=== PATIENT | male | born 1940 | race Caucasian/White ===

== ENCOUNTER 2018-05-09 14:09 | Emergency (ER) | payer MEDICARE ==
[~2018-05-09] VITALS: Ht 180.3 cm; Wt 68.0 kg
--- OUTSIDE RECORDS SUMMARY | 2018-05-09 14:18 | XMS REPORT | Continuity of Care Document ---
Author Author [facility] Address Unknown Phone Unavailable Allergies Active Description Code Type Severity Reaction Onset Reported/Identified Relationship to Patient Clinical Status Yes ERYTHROMYCIN ETHYLSUCCINATE 74323 DRUG INGREDI N/A Hives 12/02/2017 Yes SULFAMETHOXAZOLE-TRIMETHOPRIM 20412 DRUG N/A Hives~Flushed 12/02/2017 Medications There is no data. Problems Date Dx Coded Attending Type Code Diagnosis Diagnosed By 02/01/2018 JUN REYES N20.0 Calculus of kidney 02/20/2018 JANIYA WHEELER N18.6 End stage renal disease 02/20/2018 JANIYA WHEELER Z99.2 Dependence on renal dialysis 02/20/2018 VENKATA WHEELERMED N18.6 End stage renal disease 02/20/2018 ABOUL MAGGokul, VENKATAMED Z99.2 Dependence on renal dialysis 02/20/2018 VENKATA WHEELERMED N18.6 End stage renal disease 02/20/2018 JANIYA WHEELER Z99.2 Dependence on renal dialysis Procedures Code Description Performed By Performed On WOU241 NURSING COMMUNICATION 01/26/2018 [id number] BASIC METABOLIC PANEL 02/01/2018 RJV501 NOTIFY PHYSICIAN 02/01/2018 MES683 HEIGHT AND WEIGHT 02/01/2018 VHS680 VITAL SIGNS 02/01/[address] SEQUENTIAL COMPRESSION DEVICE 02/01/2018 XLW318 MAINTAIN SEQUENTIAL COMPRESSION DEVICE 02/01/2018 LEJ111 APPLY WARMING BLANKET 02/01/2018 [id number] BASIC METABOLIC PANEL 02/01/2018 [id number] STONE ANALYSIS URINARY 02/01/2018 IMY060 NURSING COMMUNICATION 02/01/2018 BJH934 MEASURE BLOOD PRESSURE 02/01/2018 UXN924 VITAL SIGNS 02/01/2018 SBE034 CONTINUOUS PULSE OXIMETRY 02/01/2018 RJN803 NOTIFY PHYSICIAN 02/01/2018 MUJ149 NURSING COMMUNICATION 02/01/2018 EDN207 NURSING OXYGEN ORDERS/ INSTRUCTIONS 02/01/2018 BIV107 BLADDER SCAN 02/01/2018 PCU698 STRAIGHT CATH 02/01/2018 ZBG059 APPLY WARMING BLANKET 02/01/2018 IDK006 GLUCOSE POC 02/01/2018 DFN530 NOTIFY PHYSICIAN 02/01/2018 KXI876 WEIGHT RESTRICTIONS 02/01/2018 MHF857 PATIENT MAY SHOWER 02/01/2018 NUR6 ACTIVITY ORDER 02/01/2018 RVA871 DISCHARGE FOLLOW UP 02/01/2018 HFK040 WOUND CARE INSTRUCTIONS FOR NURSING (SPECIFY) 02/01/2018 ADT8 DISCHARGE PATIENT 02/01/2018 DIET24 DIET 02/01/2018 [id number] ADVANCE DIET TOLERATED NURSING: PLACE NEW DIET ORDER WHEN PATIENT IS READY TO ADVANCE DIET 02/01/2018 QHY433 ACTIVITY TOLERATED 02/01/2018 TFK358 VITAL SIGNS 02/01/2018 [id number] IR TUNNELED DIALYSIS CATHETER REMOVAL 02/20/2018 SEI282 ACTIVITY TOLERATED 02/20/2018 YGG083 NURSING COMMUNICATION 02/20/2018 LQR045 VITAL SIGNS 02/20/2018 ANV225 SHOWER 02/20/2018 ZUC515 NURSING COMMUNICATION 02/20/2018 ZNF490 DISCHARGE INSTRUCTIONS 02/20/2018 NYC677 NOTIFY SERVICE 02/20/2018 XKN111 DISCHARGE FOLLOW UP 02/20/2018 ADT8 DISCHARGE PATIENT 02/20/2018 IVT10 DISCONTINUE IV 02/20/2018 Results Test Result Range BASIC METABOLIC PANEL - 02/01/18 08:30 Blood Urea Nitrogen 22 7-26 Chloride 106 96-112 Carbon Dioxide 25 20-32 Creatinine 0.9 0.6-1.3 Glucose 105 70-100 Potassium 4.3 3.5-5.3 Sodium 138 133-147 Calcium 9.2 8.4-10.5 Anion Gap 7 TX 5-17 GFR MALE AA 99 TX 60-200 GFR MALE NON-AA 82 TX 60-200 STONE ANALYSIS URINARY - 02/01/18 10:58 Disclaimer: Comment NRG Stone Ca oxalate monohydr 85 NRG Stone Calcium phosphate 05 NRG Stone Color Brown NRG Stone Comment Comment NRG Stone Composition Comment NRG Stone Nidus No Nidus visualized NRG Stone Comment Comment NRG Stone Size Comment NRG Stone Uric acid 10 NRG Stone Weight 121.5 NRG Encounters ACCT No. Visit Date/Time Discharge Status Pt. Type Provider Facility Loc./Unit Complaint [id number] 02/20/2018 10:46:12 02/20/2018 23:59:00 DIS Outpatient JANIYA WHEELER [facility] IR End stage renal disease [id number] 02/01/2018 07:48:00 02/01/2018 14:03:00 DIS Outpatient JUN REYES [facility] MAIN OR LEFT KIDNEY STONE N20.0 [id number] 02/01/2018 10:10:50 Document Registration
--- NOTE | 2018-05-09 14:51 | ED General ---
General Stated Complaint: HIGH BLOOD PRESSURE Source of Information: Patient, Family ( and daughter) Exam Limitations: No Limitations History of Present Illness Date Seen by Provider: May 09, 2018 Time Seen by Provider: 14:36 Initial Comments The patient presents to ER by private conveyance with family and chief complaint that he woke up this morning feeling a little flushing in his face so he decided to check his blood pressure. It was about 200/110. He says usually his blood pressure runs around 115/80. He does take propranolol fastidiously for blood pressure management. He took it this morning and they continue to document his blood pressure throughout the morning and it stayed elevated. He's never had blood pressure this high before. He denies any chest pain. He said his face was flushed and he felt a little bit off like he was just woke up all day. He denies headache or blurry vision. 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 He denies being short of breath or having a cough. For a few months now he's been having loose stools and mild fecal incontinence. He also has some peripheral neuropathy and difficulty with walking tightness in his bilateral quadriceps. In the last 3 or 4 months he also had a large kidney stone that he failed to pass and ended up on dialysis for a few weeks. He has since then been released from [facility] nephrology and is not on dialysis. He denies dysuria or hematuria today. He denies fevers chills nausea vomiting or constipation. He went to his primary care doctor a few weeks ago because he had symptoms of bronchitis as well as a bladder infection and was treated with antibiotics which she just finished one week ago as well as oral steroids one week ago. He was also given 3 days of IM antibiotics. He says during the time he was taking the steroids his blood pressure was never elevated. He denies using any since NSAIDs recently. He and his family deny any slurred speech, facial droop or acute weakness. He has difficulty describing what he was feeling in his head besides a flushing sensation. He denies vertigo, imbalance, double vision, headache or pain, ears feeling full or decreased hearing. The patient states that he had an elevated white count as well as white cells in his urine and that's when his primary care doctor put him on antibiotics couple weeks ago. Allergies and Home Medications Allergies Coded Allergies: sulfamethoxazole (Verified Allergy, Unknown, 05/09/18) trimethoprim (Verified Allergy, Unknown, 05/09/18) Uncoded Allergies: EES-400 (Allergy, Unknown, 05/09/18) Patient Home Medication List Home Medication List Reviewed: Yes Review of Systems Review of Systems Constitutional: No chills, No fever EENTM: No ear discharge, No hearing loss, No ear pain Respiratory: No cough, No short of breath Cardiovascular: No chest pain, No edema; Hx of Intervention; No palpitations Gastrointestinal: No abdominal pain, No constipation; diarrhea (occasional loose stools); No nausea Genitourinary: No discharge, No dysuria Musculoskeletal: No back pain, No joint pain Psychiatric/Neurological: Denies Headache, Denies Numbness; Paresthesia (head) Physical Exam Vital Signs Vital Signs - First Documented 05/09/18 14:24 Temp 96.4 Pulse 80 Resp 16 B/P (MAP) 210/106 (140) Pulse Ox 96 O2 Delivery Room Air Capillary Refill : Height, Weight, BMI Height: '" Weight: lbs. oz. kg; BMI Method: General Appearance: No Apparent Distress, WD/WN Eyes: Bilateral Eye Normal Inspection, Bilateral Eye PERRL, Bilateral Eye EOMI HEENT: TMs Normal, Normal ENT Inspection, Pharynx Normal, Other (right pupil is 5 mm, fixed and nonreactive to light. Left pupil is 2-3 mm, reactive to light and accommodation. Extraocular muscle intact.) Neck: Normal Inspection, Non Tender Respiratory: Chest Non Tender, Lungs Clear, Normal Breath Sounds, No Accessory Muscle Use, No Respiratory Distress Cardiovascular: Regular Rate, Rhythm, No Edema, No Murmur, Normal Peripheral Pulses Gastrointestinal: Normal Bowel Sounds, Non Tender, Soft Extremity: Normal Capillary Refill, Normal Inspection, Non Tender, No Calf Tenderness, Other (decreased range of motion bilateral lower extremities secondary to tightness and pain in his quadriceps) Neurologic/Psychiatric: Alert, Oriented x3, No Motor/Sensory Deficits, Normal Mood/Affect, dish carrier II-XII Norm as Tested Skin: Normal Color, Warm/Dry Progress/Results/Core Measures Suspected Sepsis SIRS Temperature: Pulse: Respiratory Rate: Laboratory Tests 05/09/18 14:40: White Blood Count 17.8H Blood Pressure / Mean: Laboratory Tests 05/09/18 14:40: Creatinine 0.96, Platelet Count 449H, Total Bilirubin 0.7 Results/Orders Lab Results Laboratory Tests Test 05/09/18 14:40 05/09/18 15:20 Range/Units White Blood Count 17.8 H 4.3-11.0 10^3/uL Red Blood Count 5.12 4.35-5.85 10^6/uL Hemoglobin 16.1 13.3-17.7 G/DL Hematocrit 49 40-54 % Mean Corpuscular Volume 96 80-99 FL Mean Corpuscular Hemoglobin 31 25-34 PG Mean Corpuscular Hemoglobin Concent 33 32-36 G/DL Red Cell Distribution Width 16.0 H 10.0-14.5 % Platelet Count 449 H 130-400 10^3/uL Mean Platelet Volume 9.0 7.4-10.4 FL Neutrophils (%) (Auto) 85 H 42-75 % Lymphocytes (%) (Auto) 9 L 12-44 % Monocytes (%) (Auto) 5 0-12 % Eosinophils (%) (Auto) 0 0-10 % Basophils (%) (Auto) 0 0-10 % Neutrophils # (Auto) 15.1 H 1.8-7.8 X 10^3 Lymphocytes # (Auto) 1.7 1.0-4.0 X 10^3 Monocytes # (Auto) 0.9 0.0-1.0 X 10^3 Eosinophils # (Auto) 0.0 0.0-0.3 10^3/uL Basophils # (Auto) 0.0 0.0-0.1 10^3/uL Neutrophils % (Manual) 75 % Lymphocytes % (Manual) 13 % Monocytes % (Manual) 4 % Eosinophils % (Manual) 0 % Basophils % (Manual) 0 % Metamyelocytes % 1 % Band Neutrophils 7 % Blood Morphology Comment NORMAL Sodium Level 140 135-145 MMOL/L Potassium Level 4.5 3.6-5.0 MMOL/L Chloride Level 98 98-107 MMOL/L Carbon Dioxide Level 26 21-32 MMOL/L Anion Gap 16 H 5-14 MMOL/L Blood Urea Nitrogen 16 7-18 MG/DL Creatinine 0.96 0.60-1.30 MG/DL Estimat Glomerular Filtration Rate > 60 BUN/Creatinine Ratio 17 Glucose Level 131 H 70-105 MG/DL Calcium Level 9.3 8.5-10.1 MG/DL Corrected Calcium 8.5-10.1 MG/DL Magnesium Level 2.1 1.8-2.4 MG/DL Total Bilirubin 0.7 0.1-1.0 MG/DL Aspartate Amino Transf (AST/SGOT) 24 5-34 U/L Alanine Aminotransferase (ALT/SGPT) 15 0-55 U/L Alkaline Phosphatase 102 40-136 U/L Troponin T 17 H <=15 NG/L Total Protein 8.3 H 6.4-8.2 GM/DL Albumin 4.6 H 3.2-4.5 GM/DL Urine Color YELLOW Urine Clarity CLEAR Urine pH 6.5 5-9 Urine Specific [place] 1.015 L 1.016-1.022 Urine Protein NEGATIVE NEGATIVE Urine Glucose (UA) NEGATIVE NEGATIVE Urine Ketones NEGATIVE NEGATIVE Urine Nitrite NEGATIVE NEGATIVE Urine Bilirubin NEGATIVE NEGATIVE Urine Urobilinogen 0.2 NORMAL MG/DL Urine Leukocyte Esterase 1+ H NEGATIVE Urine RBC (Auto) TRACE H NEGATIVE Urine RBC 0-2 /HPF Urine WBC 25-50 H /HPF Urine Crystals NONE /LPF Urine Bacteria NONE /HPF Urine Casts NONE /LPF Urine Mucus NEGATIVE /LPF Urine Culture Indicated YES My Orders Orders - EDUARDOIVAN Cbc With Automated Diff (05/09/18 14:42) Comprehensive Metabolic Panel (05/09/18 14:42) Magnesium (05/09/18 14:42) Ua Culture If Indicated (05/09/18 14:42) Troponin T (05/09/18 14:42) Chest 1 View Ap/Pa Only (05/09/18 14:42) Saline Lock/Iv-Start (05/09/18 14:42) Continuous Ekg Monitoring (05/09/18 14:44) Ekg Tracing (05/09/18 14:44) Manual Differential (05/09/18 14:40) Hs C Reactive Protein (05/09/18 14:40) Creatine Kinase (05/09/18 14:40) Urine Culture (05/09/18 15:20) Piperacillin/Tazobactam (Bulk) (Zosyn In (05/09/18 16:30) Piperacillin Sodium/Tazobactam (Zosyn Vi (05/09/18 16:30) Ns (Ivpb) (Sodium Chloride 0.9% Ivpb Bag (05/09/18 16:30) Medications Given in ED Current Medications Medications Dose Ordered Sig/Esha Route Start Time Stop Time Status Last Admin Dose Admin Piperacillin Sod/ Tazobactam Sod 4.5 gm/Sodium Chloride 120 ml @ 240 mls/hr ONCE ONCE IV 05/09/18 16:30 05/09/18 16:59 DC 05/09/18 16:44 240 MLS/HR Vital Signs/I&O 05/09/18 05/09/18 14:24 18:01 Temp 96.4 98.2 Pulse 80 68 Resp 16 14 B/P (MAP) 210/106 (140) 144/78 (100) Pulse Ox 96 97 O2 Delivery Room Air Room Air Capillary Refill : Progress Note #1: Time: 14:53 Progress Note Hypertension with flushing of the face. Steroids and antibiotics were a week ago. We'll check a CPK looking for evidence of maybe a statin related rhabdomyolysis causing his muscular weakness and pain however he's had this for several months and his primary care doctor has already started a workup on this. We'll check a urinalysis and his history of kidney stones and dialysis. We 'll check CBC and CMP looking for evidence of infection, inflammation with a CRP or kidney failure. We will observe his blood pressure for a while to see what it does without checking it constantly. When he arrived it was about 200/ 110. As of the time of this note it is down to 175/88. Rest of his vital signs are aseptic. His recent history of having to have dialysis is concerning for a source of his high blood pressure. Neurologically he is intact at baseline so this seems to be asymptomatic hypertension. Finger to Nose is intact bilaterally. No evidence of a stroke by history or clinical examination. Progress Note #2: Time: 16:16 Progress Note The patient's blood pressure is 153/84 and came down spontaneously at rest. He does have white cells in his urine and an elevated white count of 17,000. Since he received IM probably Rocephin outpatient for 3 days plus oral antibiotics and discontinued them about a week ago were going to choose to use Zosyn and encourage at least an overnight stay. His propranolol would make a elevated heart rate be masked otherwise he would possibly qualify for sepsis. ECG Initial ECG Impression Date: May 09, 2018 Initial ECG Impression Time: 14:28 Initial ECG Rate: 84 Initial ECG Rhythm: Normal Sinus Initial ECG Intervals: Normal Initial ECG Impression: Normal, Nonspecific Changes Initial ECG Comparisson: No Previous ECG Available Comment Noted abnormal EKG. No significant ST elevation or depression. Diagnostic Imaging Diagonstic Imaging: Xray Plain Films/CT/US/NM/MRI: chest Comments [facility] [place] [place] NAME: NOEMI [facility] REC#: [id number] PT STATUS: REG ER : 1940 PHYSICIAN: IVAN CLARK MD ADMIT DATE: 05/09/18/ER FS Draft Date of Exam:05/09/18 CHEST 1 VIEW AP/PA ONLY INDICATION: High blood pressure. COMPARISON: None available. FINDINGS: Small left pleural effusion. Probable airspace opacity in the left lung base. Posterior lower lobes are poorly evaluated by portable radiography. No pleural effusion or pneumothorax. Heart is normal in size and status post CABG. IMPRESSION: 1. Small left pleural effusion is unknown etiology. 2. Potential left basilar opacities could relate to relaxation atelectasis. Underlying pneumonia could be present as well in the appropriate setting. Dictated on workstation # [id number] Dict: 05/09/18 1533 Trans: 05/09/18 1538 [facility] [id number] Interpreted by: JUN NAIR MD Electronically signed by: Reviewed: Reviewed by Me Departure Impression Primary Impression: UTI (urinary tract infection) Qualified Codes: N30.00 - Acute cystitis without hematuria Additional Impressions: Sepsis Qualified Codes: A41.9 - Sepsis, unspecified organism Elevated troponin level Hypertension Qualified Codes: I10 - Essential (primary) hypertension Disposition: XFER SHT-TRM HOSP Condition: Stable Transfer Time Spoke to Accepting Phy: 17:00 Transfer Progress Notes Discussed case with Dr. Marquez at [facility]. He agrees to accept the patient. Transfer Time: 18:00 Transfer Facility: [facility] Method of Transfer: EMS Departure-Patient Inst. Referrals: SILVESTRE HANSEN DO (PCP/Family) Primary Care Physician IVAN CLARK May 09, 2018 14:51
[2018-05-09 14:58] LABS: HEMATOCRIT 49 % (40-54); HEMOGLOBIN 16.1 G/DL (13.3-17.7); MEAN CORPUSCULAR HEMOGLOBIN 31 PG (25-34); MEAN CORPUSCULAR HGB CONC 33 G/DL (32-36); MEAN CORPUSCULAR VOLUME 96 FL (80-99); PLATELET COUNT 449 10^3/uL (130-400); WHITE BLOOD COUNT 17.8 10^3/uL (4.3-11.0)
[2018-05-09 14:59] LABS: BASOPHILS % (AUTO) 0 % (0-10); EOSINOPHILS % (AUTO) 0 % (0-10); LYMPHOCYTES # (AUTO) 1.7 X 10^3 (1.0-4.0); LYMPHOCYTES % (AUTO) 9 % (12-44); MONOCYTES # (AUTO) 0.9 X 10^3 (0.0-1.0); MONOCYTES % (AUTO) 5 % (0-12); NEUTROPHILS # (AUTO) 15.1 X 10^3 (1.8-7.8); NEUTROPHILS % (AUTO) 85 % (42-75)
[2018-05-09 15:19] LABS: ALKALINE PHOSPHATASE 102 U/L (40-136); BILIRUBIN,TOTAL 0.7 MG/DL (0.1-1.0); BUN/CREATININE RATIO 17; CALCIUM 9.3 MG/DL (8.5-10.1); CARBON DIOXIDE 26 MMOL/L (21-32); CHLORIDE 98 MMOL/L (98-107); CREATININE SERUM 0.96 MG/DL (0.60-1.30); GFR ESTIMATED > 60; GLUCOSE 131 MG/DL (70-105); MAGNESIUM 2.1 MG/DL (1.8-2.4); POTASSIUM 4.5 MMOL/L (3.6-5.0); SODIUM 140 MMOL/L (135-145)
[2018-05-09 15:20] LABS: ALANINE AMINOTRANSFERASE 15 U/L (0-55); ALBUMIN 4.6 GM/DL (3.2-4.5); TOTAL PROTEIN 8.3 GM/DL (6.4-8.2)
[2018-05-09 15:39] LABS: BAND NEUTROPHILS 7 %; BASOPHILS % (MANUAL) 0 %; EOSINOPHILS % (MANUAL) 0 %; LYMPHOCYTES % (MANUAL) 13 %; METAMYELOCYTES % 1 %; MONOCYTES % (MANUAL) 4 %; NEUTROPHILS % (MANUAL) 75 %; RBC MORPH NORMAL
--- NOTE | 2018-05-09 15:39 | Diagnostic Imaging Report ---
INDICATION: High blood pressure. COMPARISON: None available. FINDINGS: Small left pleural effusion. Probable airspace opacity in the left lung base. Posterior lower lobes are poorly evaluated by portable radiography. No pleural effusion or pneumothorax. Heart is normal in size and status post CABG. IMPRESSION: 1. Small left pleural effusion is unknown etiology. 2. Potential left basilar opacities could relate to relaxation atelectasis. Underlying pneumonia could be present as well in the appropriate setting. Dictated by: Dictated on workstation # [id number]
[2018-05-09 15:40] LABS: BILIRUBIN,URINE NEGATIVE (NEGATIVE); CLARITY,URINE CLEAR; COLOR,URINE YELLOW; GLUCOSE, URINE (UA) NEGATIVE (NEGATIVE); KETONES,URINE NEGATIVE (NEGATIVE); LEUKOCYTE ESTERASE ,URINE 1+ (NEGATIVE); NITRITE,URINE NEGATIVE (NEGATIVE); PH,URINE 6.5 (5-9); PROTEIN,URINE NEGATIVE (NEGATIVE); RBC,URINE 0-2 /HPF; UROBILINOGEN,URINE 0.2 MG/DL (NORMAL); WBC,URINE 25-50 /HPF
[2018-05-09] MEDS ORDERED: CEFD300C3 (15:52)
[2018-05-09] MEDS ORDERED: PRD10T (15:52)
[2018-05-09] MEDS ORDERED: ZOLP5TAB7 (15:52)
[2018-05-09] MEDS ORDERED: LATA2.5D5 (15:52)
[2018-05-09] MEDS ORDERED: TRAZ-189 (15:52)
[2018-05-09] MEDS ORDERED: NS (IVPB) 100 ML ONE (16:30)
[2018-05-09] MEDS ORDERED: PIPERACILLIN/TAZOBACTAM (BULK) 4.5 GM in NS (IVPB) 100 ML IV ONE (16:30)
[2018-05-09] MEDS ORDERED: PIPERACILLIN/TAZO 4.5 GM VIAL (ZOSYN) IV ONE (16:30)
[2018-05-09 18:01] VITALS: BP 144/78
== END 2018-05-09 18:14 | disposition short-term general hospital (02) ==
LOC: ER FS 14:13
DX: N39.0 Urinary tract infection, site not specified (principal); A41.9 Sepsis, unspecified organism; I10 Essential (primary) hypertension; R79.89 Other specified abnormal findings of blood chemistry; Z95.1 Presence of aortocoronary bypass graft; Z88.2 Allergy status to sulfonamides; Z88.8 Allergy status to other drugs, medicaments and biological substances
CPT/HCPCS: 36415; 71045; 80053; 81000; 82550; 83735; 84484; 85007; 85027; 86141; 87077; 87088; 87184; 87186; 93005; 96374

== ENCOUNTER → 2019-01-16 | Outpatient (CLI) | payer MEDICARE ==
[~2019-01-16] MED LIST: CEFD300C3; LATA2.5D5; PRD10T; TRAZ-222; ZOLP5TAB7
== END ==
LOC: FS 17:31
PROVIDERS: ATTEND Emergency Medicine
DX: J18.9 Pneumonia, unspecified organism (principal)

== ENCOUNTER → 2019-01-16 | Outpatient (CLI) | payer MEDICARE ==
--- NOTE | 2019-01-16 18:16 | Diagnostic Imaging Report ---
HISTORY: Cough. TECHNIQUE: Two views of the chest. COMPARISON: 05/09/2018. FINDINGS: There is elevation of the left hemidiaphragm with blunting of the left costophrenic angle which is stable since 05/09/2018. This may be due to chronic scarring. There is no pleural effusion or pneumothorax. There is scarring in the lung apices. Right lung volume is large. Sternotomy wires are noted. There is calcific atherosclerosis. The heart is normal in size. IMPRESSION: 1. Chronic findings in the lungs with no acute pulmonary abnormality seen. Dictated by: Dictated on workstation # [id number]
== END ==
LOC: RAD FS 17:57
PROVIDERS: ATTEND Emergency Medicine
DX: J18.9 Pneumonia, unspecified organism (principal)
CPT/HCPCS: 71046

== ENCOUNTER → 2019-03-02 | Outpatient (CLI) | payer MEDICARE ==
[~2019-03-02] MED LIST changes: -TRAZ-222; +TRZ50T
--- NOTE | 2019-03-02 14:20 | Diagnostic Imaging Report ---
HISTORY: Cough and bronchitis. TECHNIQUE: Two views of the chest. COMPARISON: 01/16/2019 FINDINGS: There is scarring at the left lung base which is unchanged since the prior exam. No new consolidation is seen. Lung volumes are large. There is biapical pleural scarring. The cardiac silhouette is normal in size. Sternotomy wires are noted. IMPRESSION: 1. Chronic findings in the lungs bilaterally with no new consolidation seen. Dictated by: Dictated on workstation # [id number]
== END ==
LOC: RAD FS 12:34
PROVIDERS: ATTEND Nurse Practitioner Family
DX: J20.9 Acute bronchitis, unspecified (principal); Z98.890 Other specified postprocedural states
CPT/HCPCS: 71046

== ENCOUNTER 2019-09-03 08:13 | Inpatient (IN) | payer MEDICARE ==
[2019-09-03] VITALS (27 sets, daily range): BP systolic 96–137; BP diastolic 56–83
[~2019-09-03] VITALS: Ht 180.3 cm; Wt 67.1 kg
--- OUTSIDE RECORDS SUMMARY | 2019-09-03 08:21 | XMS REPORT | Continuity of Care Document ---
Author Organization Unknown Address Unknown Phone Unavailable Allergies Active Description Code Type Severity Reaction Onset Reported/Identified Relationship to Patient Clinical Status Yes ERYTHROMYCIN ETHYLSUCCINATE 28816 DRUG INGREDI N/A Hives 12/02/2017 Yes SULFAMETHOXAZOLE-TRIMETHOPRIM 22050 DRUG N/A Hives~Flushed 12/02/2017 Yes EES-400 EES-400 Unknown N/A 05/09/2018 Yes No Known Drug Allergies [id number] Drug Allergy Unknown N/A 05/09/2018 Yes sulfamethoxazole [id number] Drug Allergy Unknown N/A 05/09/2018 Yes trimethoprim [id number] Drug Allergy Unknown N/A 05/09/2018 Yes SULFA (SULFONAMIDE ANTIBIOTICS) 33 Drug Class N/A N/A 05/10/2018 Medications There is no data. Problems Date Dx Coded Attending Type Code Diagnosis Diagnosed By 02/01/2018 JUN REYES N20. 0 Calculus of kidney 02/20/2018 JANIYA WHEELER N18.6 End stage renal disease 02/20/2018 JANIYA WHEELER Z99.2 Dependence on renal dialysis 02/20/2018 VENKATA WHEELERMED N18.6 End stage renal disease 02/20/2018 VENKATA WHEELERMED Z99.2 Dependence on renal dialysis 02/20/2018 JANIYA WHEELER N18.6 End stage renal disease 02/20/2018 VENKATA WHEELERMED Z99.2 Dependence on renal dialysis 05/09/2018 IVAN CLARK MD Ot A41. 9 SEPSIS, UNSPECIFIED ORGANISM 05/09/2018 IVAN CLARK MD Ot I10 ESSENTIAL (PRIMARY) HYPERTENSION 05/09/2018 IVAN CLARK MD Ot N39. 0 URINARY TRACT INFECTION, SITE NOT SPECIF 05/09/2018 IVAN CLARK MD Ot R03. 0 ELEVATED BLOOD-PRESSURE READING, W/O ANGELES 05/09/2018 IVAN CLARK MD Ot R79. 89 OTHER SPECIFIED ABNORMAL FINDINGS OF BLO 05/09/2018 IVAN CLARK MD Ot Z88. 2 ALLERGY STATUS TO SULFONAMIDES STATUS 05/09/2018 IVAN CLARK MD Ot Z88. 8 ALLERGY STATUS TO OTH DRUG/MEDS/BIOL SUB 05/09/2018 IVAN CLARK MD Ot Z95. 1 PRESENCE OF AORTOCORONARY BYPASS GRAFT 05/10/2018 JACEY RIVERA I10 Essential (primary) hypertension 05/10/2018 JACEY RIVERA I10 Essential (primary) hypertension 05/10/2018 JACEY RIVERA I10 Essential (primary) hypertension 05/12/2018 IVAN CLARK MD Ot A41. 9 SEPSIS, UNSPECIFIED ORGANISM 05/12/2018 IVAN CLARK MD Ot I10 ESSENTIAL (PRIMARY) HYPERTENSION 05/12/2018 IVAN CLARK MD Ot N39. 0 URINARY TRACT INFECTION, SITE NOT SPECIF 05/12/2018 IVAN CLARK MD Ot R03. 0 ELEVATED BLOOD-PRESSURE READING, W/O ANGELES 05/12/2018 IVAN CLARK MD Ot R79. 89 OTHER SPECIFIED ABNORMAL FINDINGS OF BLO 05/12/2018 IVAN CLARK MD Ot Z88. 2 ALLERGY STATUS TO SULFONAMIDES STATUS 05/12/2018 IVAN CLARK MD Ot Z88. 8 ALLERGY STATUS TO OTH DRUG/MEDS/BIOL SUB 05/12/2018 IVAN CLARK MD Ot Z95. 1 PRESENCE OF AORTOCORONARY BYPASS GRAFT 01/18/2019 JADE DOADINY D Ot J18.9 PNEUMONIA, UNSPECIFIED ORGANISM 02/06/2019 KANDISLENBERGER DO SILVESTRE D Ot J18.9 PNEUMONIA, UNSPECIFIED ORGANISM 02/19/2019 KANDISLENBERGER DO SIVLESTRE D Ot J18.9 PNEUMONIA, UNSPECIFIED ORGANISM 03/02/2019 KANDISLENBERGER DO SILVESTRE D Ot J18.9 PNEUMONIA, UNSPECIFIED ORGANISM 03/02/2019 KANDISLENBERGER DO SILVESTRE D Ot J18.9 PNEUMONIA, UNSPECIFIED ORGANISM 03/27/2019 ADIN HANSEN DOY D Ot J18.9 PNEUMONIA, UNSPECIFIED ORGANISM 03/27/2019 JADE DO SILVESTRE D Ot J18.9 PNEUMONIA, UNSPECIFIED ORGANISM 03/29/2019 JADE VIDAL SILVESTRE D Ot J18.9 PNEUMONIA, UNSPECIFIED ORGANISM 03/29/2019 SILVESTRE HANSEN DO Ot J18.9 PNEUMONIA, UNSPECIFIED ORGANISM 03/30/2019 DELROY FRANKLIN PIE CUTTER Ot J20. 9 ACUTE BRONCHITIS, UNSPECIFIED 03/30/2019 DELROY FRANKLIN PIE CUTTER Ot Z98.890 OTHER SPECIFIED POSTPROCEDURAL STATES 04/18/2019 DELROY FRANKLIN PIE CUTTER Ot J20. 9 ACUTE BRONCHITIS, UNSPECIFIED 04/18/2019 DELROY FRANKLIN PIE CUTTER Ot Z98.890 OTHER SPECIFIED POSTPROCEDURAL STATES 04/27/2019 DELROY FRANKLIN PIE CUTTER Ot J20. 9 ACUTE BRONCHITIS, UNSPECIFIED 04/27/2019 DELROY FRANKLIN PIE CUTTER Ot Z98.890 OTHER SPECIFIED POSTPROCEDURAL STATES Procedures Code Description Performed By Per angelo On TGD386 SHARON SING COMMUNICATION 01/26/2018 [id number] BA SIC METABOLIC PANEL 02/01/2018 UYV979 NOT AGUSTIN PHYSICIAN 02/01/2018 OLN539 HEI GHT AND WEIGHT 02/01/2018 BQS666 VIT AL SIGNS 02/01/2018 XTY458 ALTAF CE SEQUENTIAL COMPRESSION DEVICE 02/01/2018 SWO322 JESSA NTAIN SEQUENTIAL COMPRESSION DEVICE 02/01/2018 ZPL386 JOE LY WARMING BLANKET 02/01/2018 EJR7353 BA SIC METABOLIC PANEL 02/01/[id number] ONE ANALYSIS URINARY 02/01/2018 LSK354 SHARON SING COMMUNICATION 02/01/2018 LSO859 CRUZ SURE BLOOD PRESSURE 02/01/2018 PYS382 VIT AL SIGNS 02/01/2018 EZJ075 CON TINUOUS PULSE OXIMETRY 02/01/2018 NSB049 NOT AGUSTIN PHYSICIAN 02/01/2018 LVW969 SHARON SING COMMUNICATION 02/01/2018 GOI505 [facility] OXYGEN ORDERS/INSTRUCTIONS 02/01/2018 BOD022 JEREMI DDER SCAN 02/01/2018 KEX314 STR AIGHT CATH 02/01/2018 SGU561 JOE LY WARMING BLANKET 02/01/2018 MVS393 GLU COSE POC 02/01/2018 BZN847 NOT AGUSTIN PHYSICIAN 02/01/2018 IOU830 KIRIT GHT RESTRICTIONS 02/01/2018 RRX464 PAT IENT MAY SHOWER 02/01/2018 NUR6 ACTIV ITY ORDER 02/01/2018 IJF884 DIS CHARGE FOLLOW UP 02/01/2018 OOR753 WOU ND CARE INSTRUCTIONS FOR NURSING (SPECIFY) 02/01/2018 ADT8 DISCH ARGE PATIENT 02/01/2018 DIET24 DIET 02/01/2018 IHU1710 AD MICHAELS DIET TOLERATED NURSING: PLACE NEW DIET ORDER WHEN PATIENT IS READY TO ADVANCE DIET 02/01/2018 WMN631 ACT IVITY TOLERATED 02/01/2018 WYO741 VIT AL SIGNS 02/01/2018 YWH4894 IR TUNNELED DIALYSIS CATHETER REMOVAL 02/20/2018 JFA202 ACT IVITY TOLERATED 02/20/2018 GVC876 SHARON SING COMMUNICATION 02/20/2018 ANM394 VIT AL SIGNS 02/20/2018 FYC613 SHOWER 02/20/2018 EIQ745 SHARON SING COMMUNICATION 02/20/2018 OYE580 DIS CHARGE INSTRUCTIONS 02/20/2018 CUH712 NOT AGUTSIN SERVICE 02/20/2018 IXE407 DIS CHARGE FOLLOW UP 02/20/2018 ADT8 DISCH ARGE PATIENT 02/20/2018 IVT10 DISC ONTINUE IV 02/20/2018 ADT12 PLAC E PATIENT IN OBSERVATION 05/09/2018 COD2 FULL CODE 05/09/2018 DIET24 DIET 05/09/2018 BKM8366 BA SIC METABOLIC PANEL 05/09/2018 WBL4944 CO MPLETE BLOOD COUNT 05/09/2018 FLZ6944 LI PID PANEL 05/09/2018 USR4219 TR OPONIN 05/09/2018 FNN0652 CU LTURE, URINE 05/09/2018 BLW942 ACT IVITY TOLERATED 05/09/2018 YOF848 NOT AGUSTIN PHYSICIAN 05/09/2018 RJU579 VIT AL SIGNS 05/09/2018 YZW295 ALTAF CE SEQUENTIAL COMPRESSION DEVICE 05/09/2018 LFV452 JESSA NTAIN SEQUENTIAL COMPRESSION DEVICE 05/09/2018 ENJ206 TEL EMETRY MONITORING - CLASS II 05/09/2018 LNG779 JEREMI DDER SCANNING ALGORITHM 05/09/2018 XYK1637 MA GNESIUM 05/09/2018 SWF8766 TR OPONIN 05/09/2018 JGQ2866 CU LTURE, BLOOD 05/09/2018 MJI7565 CU LTURE, BLOOD 05/09/2018 BHW2837 CU LTURE, URINE 05/09/2018 HHI0821 TR OPONIN 05/09/2018 WTE320 MARK LY WEIGHTS 05/10/2018 KRO3846 BA SIC METABOLIC PANEL 05/10/2018 PBS2444 CO MPLETE BLOOD COUNT 05/10/2018 KUW1388 CB C AND DIFF (MANUAL DIFF IF NECESSARY) 05/10/2018 CFL4774 LI PID PANEL 05/10/2018 REF7382 TR OPONIN 05/10/2018 QCU9422 UR INALYSIS (INCLUDES MICROSCOPIC REVIEW, IF INDICATED) 05/10/2018 FUK9743 XR CHEST 2 VIEWS (PA AND LATERAL) 05/10/2018 TIR3013 XR CHEST 2 VIEWS (PA AND LATERAL) 05/10/2018 JRN1216 UR INALYSIS (INCLUDES MICROSCOPIC REVIEW, IF INDICATED) 05/10/2018 GFE6590 UR INALYSIS MICROSCOPIC ONLY 05/10/2018 DIET24 DIET 05/10/2018 SQE315 ACT IVITY TOLERATED 05/10/2018 FEM507 FOL LOW UP PRIMARY PHYSICIAN 05/10/2018 YZN233 DIS CHARGE INSTRUCTIONS 05/10/2018 ADT8 DISCH ARGE PATIENT 05/10/2018 IVT10 DISC ONTINUE IV 05/10/2018 ADT8 DISCH ARGE PATIENT 05/10/2018 Results Test Result Range BASIC METABOLIC PANEL [...] acid 10 NRG Stone Weight 121.5 NRG Complete blood count (CBC) with automate d white blood cell (WBC) differential - 05/09/18 14:40 Blood leukocytes automated count (number/volume) 17.8 10*3/uL 4.3-11.0 Blood erythrocytes automated count (number/volume) 5.12 10*6/uL 4.35-5.85 Venous blood hemoglobin measurement (mass/volume) 16.1 g/dL 13.3-17.7 Blood hematocrit (volume fraction) 49 % 40-54 Automated erythrocyte mean corpuscular volume 96 [ foz_us] 80-99 Automated erythrocyte mean corpuscular h emoglobin (mass per erythrocyte) 31 pg 25-34 Automated erythrocyte mean corpuscular h emoglobin concentration measurement (mass/volume) 33 g/dL 32-36 Automated erythrocyte distribution width ratio 16. 0 % 10.0- 14.5 Automated blood platelet count (count/volume) 449 10*3/uL 130-400 Automated blood platelet mean volume measurement 9.0 [foz_us] 7.4-10.4 Automated blood neutrophils/100 leukocytes 85 % 42-75 Automated blood lymphocytes/100 leukocytes 9 % 12-44 Blood monocytes/100 leukocytes 5 % 0-12 Automated blood eosinophils/100 leukocytes 0 % 0-10 Automated blood basophils/100 leukocytes 0 % 0-10 Blood neutrophils automated count (number/volume) 15.1 10*3 1.8-7.8 Blood lymphocytes automated count (number/volume) 1.7 10*3 1.0-4.0 Blood monocytes automated count (number/volume) 0. 9 10*3 0.0-1.0 Automated eosinophil count 0.0 10*3/uL 0 .0-0.3 Automated blood basophil count (count/volume) 0.0 10*3/uL 0.0-0.1 Comprehensive metabolic panel - 05/09/18 14:40 Serum or plasma sodium measurement (moles/volume) 140 mmol/L 135-145 Serum or plasma potassium measurement (moles/volume) 4.5 mmol/L 3.6-5.0 Serum or plasma chloride measurement (moles/volume) 98 mmol/L 98-107 Carbon dioxide 26 mmol/L 21-32 Serum or plasma anion gap determination (moles/volume) 16 mmol/L 5-14 Serum or plasma urea nitrogen measurement (mass/volume ) 16 mg/dL 7-18 Serum or plasma creatinine measurement (mass/volume) 0.96 mg/dL 0.60-1.30 Serum or plasma urea nitrogen/creatinine mass ratio 17 NRG Serum or plasma creatinine measurement w ith calculation of estimated glomerular filtration rate > NRG Serum or plasma glucose measurement (mass/volume) 131 mg/dL 70-105 Serum or plasma calcium measurement (mass/volume) 9.3 mg/dL 8.5-10.1 Serum or plasma total bilirubin measurement (mass/volu me) 0.7 mg/dL 0.1-1.0 Serum or plasma alkaline phosphatase cruz surement (enzymatic activity/volume) 102 U/L 40-136 Serum or plasma aspartate aminotransfera se measurement (enzymatic activity/volume) 24 U/L 5-34 Serum or plasma alanine aminotransferase measurement (enzymatic activity/volume) 15 U/L 0-55 Serum or plasma protein measurement (mass/volume) 8.3 g/dL 6.4-8.2 Serum or plasma albumin measurement (mass/volume) 4.6 g/dL 3.2-4.5 Magnesium - 05/09/18 14:40 Magnesium 2.1 mg/dL 1.8-2.4 TROPONIN T - 05/09/18 14:40 TROPONIN T 17 % <=15 Blood manual differential performed dete ction - 05/09/18 14:40 Blood monocytes/100 leukocytes 4 % NRG Manual blood segmented neutrophils/100 leukocytes 75 % NRG Blood band neutrophils/100 leukocytes 7 % NRG Manual blood lymphocytes/100 leukocytes 13 % NRG Manual eosinophils/100 leukocytes in nose 0 % NRG Manual blood basophils/100 leukocytes 0 % NRG Blood erythrocyte morphology finding identification NORMAL NRG Manual blood metamyelocytes/100 leukocytes 1 % NRG Serum or plasma creatine kinase measurem ent (enzymatic activity/volume) - 05/09/18 14:40 Serum or plasma creatine kinase measurem ent (enzymatic activity/volume) 27 U/L 30-200 Serum or plasma C reactive protein measu rement (mass/volume) - 05/09/18 14:40 Serum or plasma C reactive protein measurement (mass/v olume) 0.13 mg/dL 0.00-0.50 Complete urinalysis with reflex to cultu re - 05/09/18 15:20 Urine color determination YELLOW NRG Urine clarity determination CLEAR NR G Urine pH measurement by test strip 6.5 5-9 Specific gravity of urine by test strip 1.015 1.016-1.022 Urine protein assay by test strip, semi-quantitative NEGATIVE NEGATIVE Urine glucose detection by automated test strip NE GATIVE NEGATIVE Erythrocytes detection in urine sediment by light micr oscopy TRACE NEGATIVE Urine ketones detection by automated test strip NE GATIVE NEGATIVE Urine nitrite detection by test strip NEGATIVE NEGATIVE Urine total bilirubin detection by test strip NEGA TIVE NEGATIVE Urine urobilinogen measurement by automated test strip (mass/volume) 0.2 mg/dL NORMAL Urine leukocyte esterase detection by dipstick 1+ NEGATIVE Automated urine sediment erythrocyte cou nt by microscopy (number/high power field) [HPF] NRG Automated urine sediment leukocyte count by microscopy (number/high power field) [HPF] NRG Bacteria detection in urine sediment by light microsco py NONE NRG Crystals detection in urine sediment by light microsco py NONE NRG Casts detection in urine sediment by light microscopy NONE NRG Mucus detection in urine sediment by light microscopy NEGATIVE NRG Complete urinalysis with reflex to culture YES NRG Bacterial urine culture - 05/09/18 15:20 Bacterial urine culture [id number] NRG COLONY COUNT 20,000 CFU/ML NRG FTX;REPORTABLE SUSCEPTIBILITY REPORTED 05-11-18 130 5 NRG FREE TEXT ENTRY 2 PRELIMINARY REPORT 05/10/18 17:05 NRG FREE TEXT ENTRY 3 RESISTANT ORGANISM/CONTACT PRECA UTIONS NRG RML Sensitivity Panel - 05/09/18 15:20 Gentamicin susceptibility test by minimum inhibitory c oncentration <= NRG Trimethoprim/sulfamethoxazole susceptibi lity test by minimum inhibitoryconcentration > NRG Levofloxacin susceptibility test by minimum inhibitory concentration > NRG Ampicillin susceptibility test by minimum inhibitory c oncentration > NRG Cefazolin susceptibility test by minimum inhibitory co ncentration > NRG Ceftriaxone susceptibility test by minimum inhibitory concentration > NRG Ciprofloxacin susceptibility test by minimum inhibitor y concentration > NRG Meropenem susceptibility test by minimum inhibitory co ncentration <= NRG Nitrofurantoin susceptibility test by mi nimum inhibitory concentration <= NRG Amoxicillin and clavulanate potassium susc JAIMIE R NRG MAGNESIUM - 05/09/18 20:48 Magnesium 2.0 1.4-2.7 TROPONIN - 05/09/18 20:48 Troponin 0.03 0.00-0.03 CULTURE, BLOOD - 05/09/18 20:48 Culture result No Growth at 5 days NRG CULTURE, BLOOD - 05/09/18 20:55 Culture result No Growth at 5 days NRG CULTURE, URINE - 05/09/18 22:18 Isolate 1 4882 NRG Culture result Submission of a repeat speci men is suggested. NRG TROPONIN - 05/09/18 23:21 Troponin 0.03 0.00-0.03 COMPLETE BLOOD COUNT - 05/10/18 02:26 WBC 15.27 4.00-11.00 Hematocrit 41 40-50 Hemoglobin 14.2 13.0-17.0 MCH 32 27-34 MCHC 34 32-36 MCV 94 80-99 MPV 8.4 9.4-12.3 Platelet Count 281 140-400 RBC 4.38 4.31-5.84 RDW 15.5 9.0-14.5 NUCLEATED RBCS 0 0-0 BASIC METABOLIC PANEL - 05/10/18 02:26 Blood Urea Nitrogen 18 7-26 Chloride 107 96-112 Carbon Dioxide 24 20-32 Creatinine 1.0 0.6-1.3 Glucose 95 70-100 Potassium 3.7 3.5-5.3 Sodium 140 133-147 Calcium 8.5 8.4-10.5 Anion Gap 8 TX 5-17 GFR MALE AA 88 60-200 GFR MALE NON-AA 72 60-200 LIPID PANEL - 05/10/18 02:26 HDL Cholesterol 44 40-110 LDL Cholesterol 75 0-99 Triglycerides 230 0-150 CHOLESTEROL 165 100-200 NON-HDL CHOLESTEROL 121 0-130 CHOLESTEROL/HDL RATIO 3.8 TX 0.0-4.5 TROPONIN - 05/10/18 02:26 Troponin 0.03 0.00-0.03 CBC AND DIFF (MANUAL DIFF IF NECESSARY) - 05/10/18 02:26 WBC 15.69 4.00-11.00 Hematocrit 44 40-50 Hemoglobin 14.5 13.0-17.0 MCH 32 27-34 MCHC 33 32-36 MCV 97 80-99 MPV 9.4 9.4-12.3 Platelet Count 331 140-400 RBC 4.48 4.31-5.84 RDW 15.7 9.0-14.5 NUCLEATED RBCS 0 0-0 % NEUTROPHILS 77 45-78 %LYMPHOCYTES 11 15-47 %MONOCYTES 9 0-12 %EOSINOPHILS 2 0-7 %BASOPHILS 0 0-2 % IMM GRANS 1 0-1 # GRANULOCYTES 12.18 1.70-6.80 # LYMPHOCYTES 1.65 1.00-3.30 # MONOCYTES 1.47 0.20-0.90 # EOSINOPHILS 0.34 0.00-0.40 # BASOPHILS 0.04 0.00-0.10 URINALYSIS - 05/10/18 13:05 APPEARANCE, URINE Yellow NRG GLUCOSE URINE Negative Negative BILIRUBIN URINE Negative Negative KETONES URINE Negative Negative SPECIFIC GRAVITY UA 1.015 TX 1.001-1.03 0 HEMOGLOBIN URINE Negative Negative PH URINE 6.0 TX 5.0-8.0 PROTEIN URINE QUAL Negative Negative UROBILINOGEN URINE Negative Negative NITRITE URINE Negative Negative LEUKOCYTE ESTERASE Positive Negative URINALYSIS MICROSCOPIC ONLY - 05/10/18 1 3:05 MICROSCOPIC RBC URINE 0-5 0-5 MICROSCOPIC WBC URINE 21-40 0-5 EPITHELIAL CELLS Absent Absent HYALINE CAST Absent Absent BACTERIA Small Absent WBC CLUMPS Present Absent Encounters ACCT No. Visit Date/Time Discharge Status Pt. Type Provider Facility Loc./Unit Complaint [id number] 05/09/2018 19:26:00 18:20:00 DIS Outpatient JACEY RIVERA [facility] INT Urinary Tract Infection [id number] 02/20/2018 10:46:12 23:59:00 DIS Outpatient JANIYA WHEELER [facility] IR End stage renal disease [id number] 02/01/2018 07:48:00 14:03:00 DIS Outpatient JUN REYES [facility] MAIN OR LEFT KIDNEY STONE N20.0 [id number] 02/01/2018 10:10:50 Document Registration [id number] 03/02/2019 12:45:00 23:59:59 CLS Outpatient DELROY FRANKLIN APRN [facility] FS J209 [id number] 01/16/2019 17:57:00 23:59:59 CLS Outpatient SILVESTRE HANSEN DO [facility] FS J189 [id number] 01/16/2019 17:31:00 23:59:59 CLS Outpatient SILVESTRE HANSEN DO [facility] FS POSS PNUEMONIA [id number] 05/09/2018 14:13:00 18:14:00 DIS Emergency EDUARDO RICHARDS, IVAN Stack [facility] FS HIGH BLOOD PRESSURE
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
[2019-09-03 08:37] LABS: BASOPHILS # (AUTO) 0.1 10^3/uL (0.0-0.1); BASOPHILS % (AUTO) 0 % (0-10); EOSINOPHILS # (AUTO) 0.5 10^3/uL (0.0-0.3); EOSINOPHILS % (AUTO) 3 % (0-10); HEMATOCRIT 39 % (40-54); HEMOGLOBIN 12.6 G/DL (13.3-17.7); LYMPHOCYTES # (AUTO) 1.1 X 10^3 (1.0-4.0); LYMPHOCYTES % (AUTO) 7 % (12-44); MEAN CORPUSCULAR HEMOGLOBIN 30 PG (25-34); MEAN CORPUSCULAR HGB CONC 33 G/DL (32-36); MEAN CORPUSCULAR VOLUME 93 FL (80-99); MEAN PLATELET VOLUME 9.2 FL (7.4-10.4); MONOCYTES # (AUTO) 1.6 X 10^3 (0.0-1.0); MONOCYTES % (AUTO) 10 % (0-12); NEUTROPHILS # (AUTO) 12.5 X 10^3 (1.8-7.8); NEUTROPHILS % (AUTO) 79 % (42-75); PLATELET COUNT 493 10^3/uL (130-400); RED CELL DISTRIBUTION WIDTH 17.5 % (10.0-14.5); WHITE BLOOD COUNT 15.9 10^3/uL (4.3-11.0)
--- NOTE | 2019-09-03 08:40 | Diagnostic Imaging Report ---
HISTORY: Shortness of air, weakness COMPARISON: 03/02/2019 TECHNIQUE: Frontal view of the chest FINDINGS: There is chronic elevation of the left hemidiaphragm with scarring. No significant pleural effusion or pneumothorax is seen. There is chronic scarring in the lung apices. There is a moderate-sized hiatal hernia. No new consolidation is seen. The cardiac silhouette appears stable in size. Sternotomy wires are noted. IMPRESSION: 1. Chronic findings in the chest with no new consolidation seen. Dictated by: Dictated on workstation # [id number]
[2019-09-03 08:51] LABS: ABG PCO2 24 MMHG (35-45); ABG PH 7.39 (7.37-7.43); ABG PO2 89 MMHG (79-93)
[2019-09-03 08:52] LABS: ABG TCO2 15.2 MMOL/L (21.0-31.0)
[2019-09-03 08:53] LABS: ABG BASE EXCESS -8.7 MMOL/L (-2.5-2.5); ABG OXYGEN SATURATION 97 % (94-100); ALLENS TEST YES-POS; INSPIRED O2 2L; PATIENT TEMP 35.9; VENTILATOR NO
[2019-09-03 08:57] LABS: BAND NEUTROPHILS 2 %; BASOPHILS % (MANUAL) 1 %; EOSINOPHILS % (MANUAL) 5 %; LYMPHOCYTES % (MANUAL) 13 %; MONOCYTES % (MANUAL) 8 %; NEUTROPHILS % (MANUAL) 71 %; RBC MORPH NORMAL
[2019-09-03] MEDS ORDERED: LACTATED RINGERS 1,000 ML IV ONE (09:03)
[2019-09-03 09:07] LABS: ALANINE AMINOTRANSFERASE 6 U/L (0-55); ALKALINE PHOSPHATASE 70 U/L (40-136); BILIRUBIN,TOTAL 0.6 MG/DL (0.1-1.0); BUN/CREATININE RATIO 18; CALCIUM 8.5 MG/DL (8.5-10.1); CARBON DIOXIDE 17 MMOL/L (21-32); CHLORIDE 101 MMOL/L (98-107); CREATININE SERUM 2.19 MG/DL (0.60-1.30); GFR ESTIMATED 29; GLUCOSE 118 MG/DL (70-105); SODIUM 138 MMOL/L (135-145)
[2019-09-03 09:08] LABS: ALBUMIN 3.4 GM/DL (3.2-4.5); TOTAL PROTEIN 6.3 GM/DL (6.4-8.2)
[2019-09-03] MEDS ORDERED: VANCOMYCIN INJECTION 750 MG in NS (IVPB) 100 ML IV ONE (09:15)
[2019-09-03] MEDS ORDERED: CEFEPIME INJECTION 1,000 MG in WATER (STERILE) FOR INJECTION 10 ML IV ONE (09:15)
[2019-09-03 09:21] LABS: INR 1.1 (0.8-1.4); PROTHROMBIN TIME PATIENT 14.1 SEC (12.2-14.7)
[2019-09-03] MEDS ORDERED: VANCOMYCIN INJECTION 500 MG in NS (IVPB) 100 ML IV ONE (10:15)
[2019-09-03 10:17] LABS: BILIRUBIN,URINE NEGATIVE (NEGATIVE); CLARITY,URINE CLOUDY; COLOR,URINE YELLOW; GLUCOSE, URINE (UA) NEGATIVE (NEGATIVE); KETONES,URINE 2+ (NEGATIVE); LEUKOCYTE ESTERASE ,URINE 3+ (NEGATIVE); NITRITE,URINE POSITIVE (NEGATIVE); PH,URINE 5.5 (5-9); PROTEIN,URINE 1+ (NEGATIVE); WBC,URINE TNTC /HPF
[2019-09-03] MEDS ORDERED: ZOLPIDEM 5 MG (AMBIEN) TAB PO PRN ×2 (14:00→17:00)
[2019-09-03] MEDS ORDERED: PATIENT MAY USE OWN MED,SINGLE MED PO SCH (14:00)
[2019-09-03] MEDS ORDERED: ONDANSETRON 4 MG/2 ML (SDV) Z0FRAN IVP PRN (14:00)
[2019-09-03] MEDS ORDERED: NS IV 1000 ML 1,000 ML IV SCH (14:00)
[2019-09-03] MEDS ORDERED: ACETAMINOPHEN 500 MG TAB (TYLENOL) PO PRN ×2 (14:00→17:15)
[2019-09-03] MEDS ORDERED: NS IV 1000 ML 1,000 ML ONE (14:03)
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
--- NOTE | 2019-09-03 14:52 | NUR ---
DISCUSSED ANTIBIOTICS WITH DR TIERNEY, PATIENT HAS A HISTORY OF ESBL+ ECOLI IN 2019, RECOMMENDED MEROPENEM UNTIL CULTURES RETURN, OK TO D/C CEFEPIME.
[2019-09-03] MEDS ORDERED: VANCOMYCIN INJECTION 0.1 MG in NS (IVPB) 250 ML IV SCH (15:30)
--- NOTE | 2019-09-03 15:50 | Pulmonary Consultation ---
History of Present Illness History of Present Illness Date Seen by Provider: Sep 03, 2019 Time Seen by Provider: 15:45 Date of Admission History of Present Illness 79yo with recent hospitalization for UTI at [facility] presented to ED secondary to witnessed syncope. upon ED arrival pt was found to be hypotensive with severe sepsis. PT was admitted to the ICU with close observation. Allergies and Home Medications Allergies Coded Allergies: sulfamethoxazole (Verified Allergy, Unknown, 05/09/18) trimethoprim (Verified Allergy, Unknown, 05/09/18) Uncoded Allergies: EES-400 (Allergy, Unknown, 05/09/18) Past Pfydcfs-Htcwzm-Vaxvto Hx Past Med/Social Hx: Reviewed Nursing Past Med/Soc Hx Patient Social History Alcohol Use: Denies Use Recreational Drug Use: No Smoking Status: Former Smoker Former Smoker, Quit: Feb 07, 1979 2nd Hand Smoke Exposure: No Recent Foreign Travel: No Contact w/Someone Who Travel: No Recent Infectious Disease Expo: No Recent Hopitalizations: No Seasonal Allergies Seasonal Allergies: Yes Past Medical History Surgeries: Yes (URINARY STENT, HERNIA REPAIR) CABG Respiratory: Yes Asthma Cardiac: Yes Coronary Artery Disease, High Cholesterol, Hypertension Neurological: Yes Neuropathy Genitourinary: Yes Bladder Infection, Kidney Stones, Renal Failure, Dialysis Gastrointestinal: Yes Abdominal Hernia Musculoskeletal: Yes Arthritis Endocrine: No HEENT: Yes Glaucoma Loss of Vision: Right Cancer: No Psychosocial: No Blood Disorders: No Family Medical History Reviewed Nursing Family Hx Review of Systems Time Seen by Provider: 15:50 Sepsis Event Evaluation Height, Weight, BMI Height: 5'11.00" Weight: 150lbs. oz. 68.560919cj; 20.30 BMI Method:Stated Exam Exam Vital Signs Date Time Temp Pulse Resp B/P (MAP) Pulse Ox O2 Delivery O2 Flow Rate FiO2 09/03/19 15:15 75 13 119/65 (83) 97 Nasal Cannula 2.00 09/03/19 15:00 75 14 120/75 (90) 95 Nasal Cannula 2.00 09/03/19 14:45 74 12 126/62 (83) 98 Nasal Cannula 2.00 09/03/19 14:34 95 Nasal Cannula 2.00 09/03/19 14:30 77 14 127/72 (90) 99 Nasal Cannula 2.00 09/03/19 14:15 75 18 123/80 (94) 98 Nasal Cannula 2.00 09/03/19 14:00 77 29 127/65 (85) 94 Nasal Cannula 2.00 09/03/19 13:56 36.6 09/03/19 13:49 78 09/03/19 13:45 78 12 117/71 (86) 92 Nasal Cannula 2.00 09/03/19 13:30 78 18 131/70 (90) 92 Nasal Cannula 2.00 09/03/19 12:29 35.7 75 16 121/64 99 09/03/19 08:15 99 2.00 09/03/19 08:15 35.9 76 16 94/59 (71) 97 Height & Weight Height: 5'11.00" Weight: 150lbs. oz. 68.189870am; 20.30 BMI Method:Stated General Appearance: No Apparent Distress, WD/WN HEENT: PERRL/EOMI, Moist Mucous Membranes Neck: Normal Inspection, Supple Respiratory: Lungs Clear, No Accessory Muscle Use, No Respiratory Distress Cardiovascular: Regular Rate, Rhythm, No Murmur Capillary Refill: Less Than 3 Seconds Peripheral Pulses: 2+ Dorsalis Pedis (R), 2+ Left Dors-Pedis (L) Gastrointestinal: normal bowel sounds, non tender, soft, no organomegaly Extremity: Normal Capillary Refill, No Calf Tenderness Neurologic/Psychiatric: Alert, Oriented x3, Normal Mood/Affect Skin: Normal Color, Warm/Dry Results Lab Laboratory Tests 09/03/19 08:26 Assessment/Plan Assessment/Plan UTI with severe sepsis -Continue Merrem secondary to hx of ESBL -IVF Metabolic lactic acidosis - improving Hypotension - improved ELIJAH -Monitor -IVF CAD s/p CABG HTN MANDY COBURN DO Sep 03, 2019 15:50
--- OUTSIDE RECORDS SUMMARY | 2019-09-03 15:54 | XMS REPORT | Continuity of Care Document ---
Author Organization Unknown Address Unknown Phone Unavailable Allergies Active Description Code Type Severity Reaction Onset Reported/Identified Relationship to Patient Clinical Status Yes ERYTHROMYCIN ETHYLSUCCINATE 59189 DRUG INGREDI N/A Hives 12/02/2017 Yes SULFAMETHOXAZOLE-TRIMETHOPRIM 16594 DRUG N/A Hives~Flushed 12/02/2017 Yes EES-400 EES-400 Unknown N/A 05/09/2018 Yes No Known Drug Allergies [id number] Drug Allergy Unknown N/A 05/09/2018 Yes sulfamethoxazole [id number] Drug Allergy Unknown N/A 05/09/2018 Yes trimethoprim [id number] Drug Allergy Unknown N/A 05/09/2018 Yes SULFA [...] J18.9 PNEUMONIA, UNSPECIFIED ORGANISM 02/19/2019 KANDISLENBERGER DO SILVESTRE D Ot J18.9 PNEUMONIA, [...] J18.9 PNEUMONIA, UNSPECIFIED ORGANISM 03/30/2019 DELROY FRANKLIN CONVEYOR SYSTEM DISPATCHER Ot J20. 9 ACUTE BRONCHITIS, UNSPECIFIED 03/30/2019 DELROY FRANKLIN CONVEYOR SYSTEM DISPATCHER Ot Z98.890 OTHER SPECIFIED POSTPROCEDURAL STATES 04/18/2019 DELROY FRANKLIN CONVEYOR SYSTEM DISPATCHER Ot J20. 9 ACUTE BRONCHITIS, UNSPECIFIED 04/18/2019 DELROY FRANKLIN CONVEYOR SYSTEM DISPATCHER Ot Z98.890 OTHER SPECIFIED POSTPROCEDURAL STATES 04/27/2019 DELROY FRANKLIN CONVEYOR SYSTEM DISPATCHER Ot J20. 9 ACUTE BRONCHITIS, UNSPECIFIED 04/27/2019 DELROY FRANKLIN CONVEYOR SYSTEM DISPATCHER Ot Z98.890 OTHER SPECIFIED POSTPROCEDURAL STATES Procedures Code Description Performed By Per angelo On ILJ403 SHARON SING COMMUNICATION 01/26/2018 YXO8256 BA SIC METABOLIC PANEL 02/01/2018 WJL959 NOT AGUSTIN PHYSICIAN 02/01/2018 FSD004 HEI GHT AND WEIGHT 02/01/2018 ASN535 VIT AL SIGNS 02/01/2018 JMM458 ALTAF CE SEQUENTIAL COMPRESSION DEVICE 02/01/2018 TKB109 JESSA NTAIN SEQUENTIAL COMPRESSION DEVICE 02/01/2018 HIQ008 JOE LY WARMING BLANKET 02/01/2018 DFR9381 BA SIC METABOLIC PANEL 02/01/[address] ONE ANALYSIS URINARY 02/01/2018 ALM505 SHARON SING COMMUNICATION 02/01/2018 LGA817 CRUZ SURE BLOOD PRESSURE 02/01/2018 UZX527 VIT AL SIGNS 02/01/2018 INL239 CON TINUOUS PULSE OXIMETRY 02/01/2018 RXV445 NOT AGUSTIN PHYSICIAN 02/01/2018 FZT790 SHARON SING COMMUNICATION 02/01/2018 IGF345 [facility] OXYGEN ORDERS/INSTRUCTIONS 02/01/2018 WGP331 JEREMI DDER SCAN 02/01/2018 XPU708 STR AIGHT CATH 02/01/2018 HKG492 JOE LY WARMING BLANKET 02/01/2018 BRB521 GLU COSE POC 02/01/2018 BRY018 NOT AGUSTIN PHYSICIAN 02/01/2018 KPC940 KIIRT GHT RESTRICTIONS 02/01/2018 UCV229 PAT IENT MAY SHOWER 02/01/2018 NUR6 ACTIV ITY ORDER 02/01/2018 HEM581 DIS CHARGE FOLLOW UP 02/01/2018 RLS122 WOU ND CARE INSTRUCTIONS FOR NURSING (SPECIFY) 02/01/2018 ADT8 DISCH ARGE PATIENT 02/01/2018 DIET24 DIET 02/01/2018 BPO9511 AD MICHAELS DIET TOLERATED NURSING: PLACE NEW DIET ORDER WHEN PATIENT IS READY TO ADVANCE DIET 02/01/2018 SEQ872 ACT IVITY TOLERATED 02/01/2018 ZES374 VIT AL SIGNS 02/01/2018 JIL5359 IR TUNNELED DIALYSIS CATHETER REMOVAL 02/20/2018 UGW138 ACT IVITY TOLERATED 02/20/2018 AWJ250 SHARON SING COMMUNICATION 02/20/2018 OBE724 VIT AL SIGNS 02/20/2018 KUH894 SHOWER 02/20/2018 AIH824 SHARON SING COMMUNICATION 02/20/2018 FJZ326 DIS CHARGE INSTRUCTIONS 02/20/2018 ARQ749 NOT AGUSTIN SERVICE 02/20/2018 QWR227 DIS CHARGE FOLLOW UP 02/20/2018 ADT8 DISCH ARGE PATIENT 02/20/2018 IVT10 DISC ONTINUE IV 02/20/2018 ADT12 PLAC E PATIENT IN OBSERVATION 05/09/2018 COD2 FULL CODE 05/09/2018 DIET24 DIET 05/09/2018 OXS3212 BA SIC METABOLIC PANEL 05/09/2018 SFU8467 CO MPLETE BLOOD COUNT 05/09/2018 SQD7280 LI PID PANEL 05/09/2018 FDU1060 TR OPONIN 05/09/2018 TUV8839 CU LTURE, URINE 05/09/2018 SXY168 ACT IVITY TOLERATED 05/09/2018 MUH022 NOT AGUSTIN PHYSICIAN 05/09/2018 CSR087 VIT AL SIGNS 05/09/2018 OUE238 ALTAF CE SEQUENTIAL COMPRESSION DEVICE 05/09/2018 DFG570 JESSA NTAIN SEQUENTIAL COMPRESSION DEVICE 05/09/2018 FZI956 TEL EMETRY MONITORING - CLASS II 05/09/2018 DRH141 JEREMI DDER SCANNING ALGORITHM 05/09/2018 JSJ1329 MA GNESIUM 05/09/2018 LXC7766 TR OPONIN 05/09/2018 JCX4210 CU LTURE, BLOOD 05/09/2018 XDR6917 CU LTURE, BLOOD 05/09/2018 ETE6423 CU LTURE, URINE 05/09/2018 KPN7394 TR OPONIN 05/09/2018 AEY590 MARK LY WEIGHTS 05/10/2018 SGU1828 BA SIC METABOLIC PANEL 05/10/2018 FOU3082 CO MPLETE BLOOD COUNT 05/10/2018 MTM5744 CB C AND DIFF (MANUAL DIFF IF NECESSARY) 05/10/2018 SZI6855 LI PID PANEL 05/10/2018 QVQ7196 TR OPONIN 05/10/2018 CSA0461 UR INALYSIS (INCLUDES MICROSCOPIC REVIEW, IF INDICATED) 05/10/2018 KLB6598 XR CHEST 2 VIEWS (PA AND LATERAL) 05/10/2018 XES9168 XR CHEST 2 VIEWS (PA AND LATERAL) 05/10/2018 FTH1122 UR INALYSIS (INCLUDES MICROSCOPIC REVIEW, IF INDICATED) 05/10/2018 JSF3539 UR INALYSIS MICROSCOPIC ONLY 05/10/2018 DIET24 DIET 05/10/2018 VHB386 ACT IVITY TOLERATED 05/10/2018 NBF842 FOL LOW UP PRIMARY PHYSICIAN 05/10/2018 YTP029 DIS CHARGE INSTRUCTIONS 05/10/2018 ADT8 DISCH ARGE [...] culture - 05/09/18 15:20 Bacterial urine culture [id number] NRG COLONY COUNT 20,000 CFU/ML NRG FTX;REPORTABLE [...] BACTERIA Small Absent WBC CLUMPS Present Absent Complete blood count (CBC) with automate d white blood cell (WBC) differential - 09/03/19 08:26 Blood leukocytes automated count (number/volume) 15.9 10*3/uL 4.3-11.0 Blood erythrocytes automated count (number/volume) 4.18 10*6/uL 4.35-5.85 Venous blood hemoglobin measurement (mass/volume) 12.6 g/dL 13.3-17.7 Blood hematocrit (volume fraction) 39 % 40-54 Automated erythrocyte mean corpuscular volume 93 [ foz_us] 80-99 Automated erythrocyte mean corpuscular h emoglobin (mass per erythrocyte) 30 pg 25-34 Automated erythrocyte mean corpuscular h emoglobin concentration measurement (mass/volume) 33 g/dL 32-36 Automated erythrocyte distribution width ratio 17. 5 % 10.0- 14.5 Automated blood platelet count (count/volume) 493 10*3/uL 130-400 Automated blood platelet mean volume measurement 9.2 [foz_us] 7.4-10.4 Automated blood neutrophils/100 leukocytes 79 % 42-75 Automated blood lymphocytes/100 leukocytes 7 % 12-44 Blood monocytes/100 leukocytes 10 % 0-12 Automated blood eosinophils/100 leukocytes 3 % 0-10 Automated blood basophils/100 leukocytes 0 % 0-10 Blood neutrophils automated count (number/volume) 12.5 10*3 1.8-7.8 Blood lymphocytes automated count (number/volume) 1.1 10*3 1.0-4.0 Blood monocytes automated count (number/volume) 1. 6 10*3 0.0-1.0 Automated eosinophil count 0.5 10*3/uL 0 .0-0.3 Automated blood basophil count (count/volume) 0.1 10*3/uL 0.0-0.1 Manual absolute plasma cell count - 08/08 08/26 08:26 Blood monocytes/100 leukocytes 8 % NRG Manual blood segmented neutrophils/100 leukocytes 71 % NRG Blood band neutrophils/100 leukocytes 2 % NRG Manual blood lymphocytes/100 leukocytes 13 % NRG Manual eosinophils/100 leukocytes in nose 5 % NRG Manual blood basophils/100 leukocytes 1 % NR Blood erythrocyte morphology finding identification NORMAL NR Comprehensive metabolic panel - 09/03/19 08:26 Serum or plasma sodium measurement (moles/volume) 138 mmol/L 135-145 Serum or plasma potassium measurement (moles/volume) 4.0 mmol/L 3.6-5.0 Serum or plasma chloride measurement (moles/volume) 101 mmol/L 98-107 Carbon dioxide 17 mmol/L 21-32 Serum or plasma anion gap determination (moles/volume) 20 mmol/L 5-14 Serum or plasma urea nitrogen measurement (mass/volume ) 39 mg/dL 7-18 Serum or plasma creatinine measurement (mass/volume) 2.19 mg/dL 0.60-1.30 Serum or plasma urea nitrogen/creatinine mass ratio 18 NRG Serum or plasma creatinine measurement w ith calculation of estimated glomerular filtration rate 29 NRG Serum or plasma glucose measurement (mass/volume) 118 mg/dL 70-105 Serum or plasma calcium measurement (mass/volume) 8.5 mg/dL 8.5-10.1 Serum or plasma total bilirubin measurement (mass/volu me) 0.6 mg/dL 0.1-1.0 Serum or plasma alkaline phosphatase cruz surement (enzymatic activity/volume) 70 U/L 40-136 Serum or plasma aspartate aminotransfera se measurement (enzymatic activity/volume) 14 U/L 5-34 Serum or plasma alanine aminotransferase measurement (enzymatic activity/volume) 6 U/L 0-55 Serum or plasma protein measurement (mass/volume) 6.3 g/dL 6.4-8.2 Serum or plasma albumin measurement (mass/volume) 3.4 g/dL 3.2-4.5 CALCIUM CORRECTED 9.0 mg/dL 8.5-10.1 TROPONIN I FS - 09/03/19 08:26 TROPONIN I FS < 0.30 <0.30 PROBNP FS - 09/03/19 08:26 PROBNP FS 893.8 pg/mL <75.0 CRP FS - 09/03/19 08:26 CRP FS 4.57 mg/dL <0.50 PT panel in platelet poor plasma by coag ulation assay - 09/03/19 08:26 Prothrombin time (PT) in platelet poor plasma by coagu lation assay 14.1 s 12.2-14.7 INR in platelet poor plasma or blood by coagulation as say 1.1 0.8-1.4 Activated partial thromboplastin time (a PTT) in platelet poor plasma bycoagulation assay - 09/03/19 08:26 Activated partial thromboplastin time (a PTT) in platelet poor plasma bycoagulation assay 29 s 24-35 Blood lactic acid measurement (moles/vol ume) - 09/03/19 08:26 Blood lactic acid measurement (moles/volume) 2.28 mmol/L 0.50-2.00 Arterial blood gas measurement - 0 08:42 Blood pCO2 24 mm[Hg] 35-45 Blood pO2 89 mm[Hg] 79-93 Arterial blood bicarbonate measurement (moles/volume) 15 mmol/L 23-27 Arterial blood base excess by calculation -8.7 mmo l/L -2.5-2.5 Arterial blood oxygen saturation measurement 97 % 94-100 * Inhaled oxygen flow rate 2L NRG Arterial blood pH measurement with patient temperature correction 7.39 7.37-7.43 Arterial blood carbon dioxide, total measurement (mole s/volume) 15.2 mmol/L 21.0-31.0 Body site RT RAD NRG Assessment of wrist artery patency prior to arterial p uncture YES-POS NRG Setting of ventilation mode NO NR G Measurement of body temperature 35.9 NRG Complete urinalysis with reflex to cultu re - 09/03/19 10:00 Urine color determination YELLOW NRG Urine clarity determination CLOUDY NR G Urine pH measurement by test strip 5.5 5-9 Specific gravity of urine by test strip 1.025 1.016-1.022 Urine protein assay by test strip, semi-quantitative 1+ NEGATIVE Urine glucose detection by automated test strip NE GATIVE NEGATIVE Erythrocytes detection in urine sediment by light micr oscopy 2+ NEGATIVE Urine ketones detection by automated test strip 2+ NEGATIVE Urine nitrite detection by test strip POSITIVE NEGATIVE Urine total bilirubin detection by test strip NEGA TIVE NEGATIVE Urine urobilinogen measurement by automated test strip (mass/volume) 0.2 mg/dL < = 1.0 Urine leukocyte esterase detection by dipstick 3+ NEGATIVE Automated urine sediment erythrocyte cou nt by microscopy (number/high power field) [HPF] NRG Automated urine sediment leukocyte count by microscopy (number/high power field) TNTC NRG Bacteria detection in urine sediment by light microsco py 5-10 NRG Crystals detection in urine sediment by light microsco py NONE NRG Casts detection in urine sediment by light microscopy NONE NRG Mucus detection in urine sediment by light microscopy NEGATIVE NRG Complete urinalysis with reflex to culture CULTURE PENDING NRG Serum or plasma lactate measurement (mol es/volume) - 09/03/19 10:45 Serum or plasma lactate measurement (moles/volume) 1.85 mmol/L 0.50-2.00 Encounters ACCT No. Visit Date/Time Discharge Status Pt. Type Provider Facility Loc./Unit Complaint [id number] 05/09/2018 19:26:00 18:20:00 DIS Outpatient JACEY RIVERA [facility] INT Urinary Tract Infection [id number] 02/20/2018 10:46:12 23:59:00 DIS Outpatient JANIYA WHEELER [facility] IR End stage renal disease [id number] 02/01/2018 07:48:00 14:03:00 DIS Outpatient JUN REYES [facility] MAIN OR LEFT KIDNEY STONE N20.0 [id number] 02/01/2018 10:10:50 Document Registration [id number] 03/02/2019 12:45:00 23:59:59 CLS Outpatient DELROY FRANKLIN APRN [facility] RAD FS J209 [id number] 01/16/2019 17:57:00 23:59:59 CLS Outpatient SILVESTRE HANSEN DO [facility] RAD FS J189 [id number] 01/16/2019 17:31:00 23:59:59 CLS Outpatient SILVESTRE HANSEN DO [facility] FS POSS PNUEMONIA [id number] 05/09/2018 14:13:00 18:14:00 DIS Emergency EDUARDO RICHARDS, IVAN Stack [facility] ER FS HIGH BLOOD PRESSURE [id number] 09/03/2019 13:25:[address] Inpatient NIALL RICHARDS, JONO V[facility] ICU SEVERE SEPSIS;PNA;ELIJAH;ACUTE RESP FAILURE;HYPOXIA;-
[2019-09-03] MEDS ORDERED: oxyCODONE/APAP 5/325MG (PERCOCET 5) TABLET ONE (16:43)
[2019-09-03] MEDS: NS IV 1000 ML 1,000 ML IV SCH ×2 (16:52→21:14)
[2019-09-03] MEDS: MEROPENEM 500 MG/SWFI 10 ML IV PUSH IV SCH ×4 (16:52→23:38)
[2019-09-03] MEDS: oxyCODONE/APAP 5/325MG (PERCOCET 5) TABLET PO PRN (16:53)
[2019-09-03] MEDS ORDERED: BENZONATATE 100 MG (TESSALON) CAPSULE PO PRN (17:00)
[2019-09-03] MEDS ORDERED: ANTACID SUSP 30 ML UDC (MYLANTA) PO PRN (17:00)
[2019-09-03] MEDS ORDERED: ACETAMINOPHEN 325 MG TABLET PO PRN (17:00)
[2019-09-03] MEDS ORDERED: MILK OF MAGNESIA 400 MG/5 ML 30 ML UDC PO PRN (17:00)
--- NOTE | 2019-09-03 17:22 | NUR ---
CR 2.19; CR CL ~26; WT 66 KG; VANCO 1250 MG IV GIVEN IN ER; CONTINUE WITH VANCO 1 GM IV Q24H X 2 MORE DAYS
[2019-09-03] MEDS ORDERED: EPINEPHrine 1 MG INJECTION 2 MG in NS (IVPB) 248 ML IV SCH (17:30)
[2019-09-03] MEDS ORDERED: CATHETER FLUSH 10 ML SYR IV PRN (17:30)
[2019-09-03] MEDS: ONDANSETRON 4 MG/2 ML (SDV) Z0FRAN IV PRN ×2 (17:44→21:16)
[2019-09-03] MEDS: NOREPINEPHRINE 4 MG/250 ML 250 ML IV SCH (17:45)
[2019-09-03] MEDS: VASOPRESSIN INJECTION 20 UNIT in NORMAL SALINE 100 ML IV SCH (17:46)
[2019-09-03] MEDS: LACTOBACILLUS ACIDOPHILUS (PROBIOTIC) CAPSULE PO SCH (17:49)
[2019-09-03] MEDS: NYSTATIN ORAL SUSP 5 ML UDC PO SCH ×2 (17:49→23:46)
[2019-09-03] MEDS ORDERED: CEFEPIME INJECTION 1,000 MG in WATER (STERILE) FOR INJECTION 10 ML IV SCH (18:00)
[2019-09-03] MEDS: inSUlin ASPART (NovoLOG) 1 UNIT/0.01 ML (CHARGE PER UNIT) SQ SCH (21:00)
[2019-09-03] MEDS ORDERED: traZODone 50 MG (DESYREL) TAB PO SCH (21:00)
[2019-09-03] MEDS: traZODone 50 MG (DESYREL) TAB PO SCH (21:14)
[2019-09-03] MEDS: LATANOPROST 0.005% (XALATAN) OPHTH SOLN 2.5 ML OU SCH (23:39)
[2019-09-04] VITALS (12 sets, daily range): BP systolic 110–171; BP diastolic 59–98
[2019-09-04] MEDS: VASOPRESSIN INJECTION 20 UNIT in NORMAL SALINE 100 ML IV SCH (02:15)
[2019-09-04] MEDS: ONDANSETRON 4 MG/2 ML (SDV) Z0FRAN IV PRN ×2 (02:20→09:06)
[2019-09-04] MEDS: NOREPINEPHRINE 4 MG/250 ML 250 ML IV SCH (02:53)
[2019-09-04 03:53] LABS: POTASSIUM 3.5 MMOL/L (3.6-5.0)
[2019-09-04 03:54] LABS: CALCIUM 7.9 MG/DL (8.5-10.1)
[2019-09-04 03:59] LABS: CREATININE SERUM 1.3 MG/DL (0.60-1.30); PHOSPHORUS 3.1 MG/DL (2.3-4.7)
[2019-09-04 04:01] LABS: MAGNESIUM 1.9 MG/DL (1.6-2.4)
[2019-09-04 04:23] LABS: BASOPHILS % (AUTO) 0 % (0-10); EOSINOPHILS # (AUTO) 0.2 10^3/uL (0.0-0.3); EOSINOPHILS % (AUTO) 1 % (0-10); HEMATOCRIT 37 % (40-54); HEMOGLOBIN 11.9 G/DL (13.3-17.7); LYMPHOCYTES # (AUTO) 0.8 X 10^3 (1.0-4.0); LYMPHOCYTES % (AUTO) 5 % (12-44); MEAN CORPUSCULAR HEMOGLOBIN 30 PG (25-34); MEAN CORPUSCULAR HGB CONC 32 G/DL (32-36); MEAN CORPUSCULAR VOLUME 93 FL (80-99); MEAN PLATELET VOLUME 9.7 FL (7.4-10.4); MONOCYTES # (AUTO) 1.6 X 10^3 (0.0-1.0); MONOCYTES % (AUTO) 10 % (0-12); NEUTROPHILS # (AUTO) 13.7 X 10^3 (1.8-7.8); NEUTROPHILS % (AUTO) 84 % (42-75); PLATELET COUNT 359 10^3/uL (130-400); RED CELL DISTRIBUTION WIDTH 17.7 % (10.0-14.5); WHITE BLOOD COUNT 16.3 10^3/uL (4.3-11.0)
[2019-09-04] MEDS: POTASSIUM CL 10MEQ/50ML IVPB 50 ML IV SCH ×4 (04:40→09:09)
--- NOTE | 2019-09-04 05:21 | Pulmonary Progress Note ---
Subjective Time Seen by a Provider: 05:14 Subjective/Events-last exam Pt appears to be doing better. Sepsis Event Evaluation Height, Weight, BMI Height: 5'11.00" Weight: 150lbs. oz. 68.474858hu; 20.30 BMI Method:Stated Focused Exam Lactate Level 09/03/19 08:26: Lactic Acid Level 2.28*H 09/03/19 10:45: Lactic Acid Level 1.85 Time of Focused Exam: 10:30 Exam Exam Vital Signs Date Time Temp Pulse Resp B/P (MAP) Pulse Ox O2 Delivery O2 Flow Rate FiO2 09/04/19 05:00 82 20 141/72 (95) 98 Room Air 09/04/19 04:00 79 15 110/61 (77) 96 Room Air 09/04/19 03:00 84 16 115/59 (77) 98 Room Air 09/04/19 02:53 36.1 09/04/19 02:53 88 116/61 09/04/19 02:15 88 116/61 09/04/19 02:00 102 25 171/98 (122) 97 Room Air 09/04/19 01:15 87 09/04/19 01:00 86 12 125/62 (83) 96 Room Air 09/04/19 00:00 88 12 116/61 (79) 97 Room Air 09/03/19 23:42 37.3 Room Air 09/03/19 23:00 87 16 130/61 (84) 98 Nasal Cannula 1.00 09/03/19 22:00 84 15 106/57 (73) 98 Nasal Cannula 1.00 09/03/19 21:00 82 18 126/67 (86) 100 Nasal Cannula 1.00 09/03/19 20:00 83 11 125/63 (83) 99 Nasal Cannula 1.00 09/03/19 19:50 37.5 Nasal Cannula 1.00 09/03/19 19:00 83 11 125/63 (83) 99 Nasal Cannula 2.00 09/03/19 19:00 85 09/03/19 18:45 82 14 114/83 (93) 98 Nasal Cannula 2.00 09/03/19 18:30 84 17 121/63 (82) 98 Nasal Cannula 2.00 09/03/19 18:15 84 18 100/56 (71) 98 Nasal Cannula 2.00 09/03/19 18:00 84 13 125/64 (84) 98 Nasal Cannula 2.00 09/03/19 17:45 84 18 111/70 (84) 100 Nasal Cannula 2.00 09/03/19 17:30 84 14 121/78 (92) 100 Nasal Cannula 2.00 09/03/19 17:15 82 11 124/61 (82) 99 Nasal Cannula 2.00 09/03/19 17:00 85 18 137/63 (87) 99 Nasal Cannula 2.00 09/03/19 16:45 92 26 101/75 (84) 99 Nasal Cannula 2.00 09/03/19 16:30 82 17 130/80 (97) 99 Nasal Cannula 2.00 09/03/19 16:15 77 11 96/62 (73) 99 Nasal Cannula 2.00 09/03/19 16:00 75 17 108/59 (75) 96 Nasal Cannula 2.00 09/03/19 15:45 75 13 111/56 (74) 100 Nasal Cannula 2.00 09/03/19 15:30 78 16 126/58 (80) 98 Nasal Cannula 2.00 09/03/19 15:15 75 13 119/65 (83) 97 Nasal Cannula 2.00 09/03/19 15:00 75 14 120/75 (90) 95 Nasal Cannula 2.00 09/03/19 14:45 74 12 126/62 (83) 98 Nasal Cannula 2.00 09/03/19 14:34 95 Nasal Cannula 2.00 09/03/19 14:30 77 14 127/72 (90) 99 Nasal Cannula 2.00 09/03/19 14:15 75 18 123/80 (94) 98 Nasal Cannula 2.00 09/03/19 14:00 77 29 127/65 (85) 94 Nasal Cannula 2.00 09/03/19 13:56 36.6 09/03/19 13:49 78 09/03/19 13:45 78 12 117/71 (86) 92 Nasal Cannula 2.00 09/03/19 13:30 78 18 131/70 (90) 92 Nasal Cannula 2.00 09/03/19 12:29 35.7 75 16 121/64 99 09/03/19 08:15 99 2.00 09/03/19 08:15 35.9 76 16 94/59 (71) 97 I & O 09/04/19 07:00 Intake Total 450 ml Output Total 650 ml Balance -200 ml Height & Weight Height: 5'11.00" Weight: 150lbs. oz. 68.914316qe; 20.30 BMI Method:Stated General Appearance: No Apparent Distress, WD/WN HEENT: PERRL/EOMI, Moist Mucous Membranes Neck: Normal Inspection, Supple Respiratory: Lungs Clear, No Accessory Muscle Use, No Respiratory Distress Cardiovascular: Regular Rate, Rhythm, No Murmur Capillary Refill: Less Than 3 Seconds Peripheral Pulses: 2+ Dorsalis Pedis (R), 2+ Left Dors-Pedis (L) Gastrointestinal: normal bowel sounds, non tender, soft, no organomegaly Extremity: Normal Capillary Refill, No Calf Tenderness Neurologic/Psychiatric: Alert, Oriented x3, Normal Mood/Affect Skin: Normal Color, Warm/Dry Results Lab Laboratory Tests 09/03/19 08:26 09/04/19 03:15 Assessment/Plan Assessment/Plan UTI with severe sepsis -Continue vanco and Merrem secondary to hx of ESBL -IVF with LR at 100cc/hr Metabolic lactic acidosis - -Repeat LA Atelectasis -IS -Increase activity Nausea - No abdominal pain -Check amylase/lipase Constipation -add Colace and PRN Miralax Hypotension - resolved with IVF ELIJAH - Improving -LR at 100cc/hr currently -Monitor -IVF CAD s/p CABG HTN Pt is doing well from pulmonary standpoint. I will sign off once he transfers to 4th floor. Please call with any questions. MANDY COBURN DO Sep 04, 2019 05:21
[2019-09-04] MEDS ORDERED: polyethylene glycoL POWDER 17 GM (MIRALAX) PACK PO PRN (05:30)
[2019-09-04] MEDS ORDERED: PROMETHAZINE 25 MG (PHENERGAN) TAB PO PRN (05:30)
[2019-09-04 05:34] LABS: AMYLASE 25 U/L (25-125)
[2019-09-04 05:43] LABS: LIPASE 42 U/L (8-78)
[2019-09-04] MEDS ORDERED: KCL 20 MEQ TAB (K-DUR) PO SCH ×3 (06:00)
[2019-09-04] MEDS ORDERED: POTASSIUM CL 10MEQ/50ML IVPB 50 ML IV SCH ×2 (06:00)
[2019-09-04] MEDS ORDERED: MAGNESIUM 1 GM/100 ML IVPB 100 ML IV SCH ×2 (06:00)
[2019-09-04] MEDS: inSUlin ASPART (NovoLOG) 1 UNIT/0.01 ML (CHARGE PER UNIT) SQ SCH (06:02)
[2019-09-04] MEDS: NYSTATIN ORAL SUSP 5 ML UDC PO SCH ×4 (06:07→23:28)
[2019-09-04] MEDS: ENOXAPARIN 40 MG/0.4 ML (LOVENOX) SYR SC SCH (06:07)
[2019-09-04] MEDS: LACTATED RINGERS 1,000 ML IV SCH ×3 (06:07→19:43)
[2019-09-04] MEDS: MEROPENEM 500 MG/SWFI 10 ML IV PUSH IV SCH ×6 (06:08→23:31)
--- NOTE | 2019-09-04 08:08 | Diagnostic Imaging Report ---
EXAMINATION: Chest radiograph, portable AP view. DATE: 09/04/2019 3:15 AM hours. INDICATION: 79-year-old male, shortness of breath. COMPARISON: September 03, 2019. FINDINGS: There are median sternotomy wires. Stable overall appearance of the cardiomediastinal silhouette. There is no identified pneumothorax. There is elevation of the left hemidiaphragm. There are streaky opacities in the right medial lung base which are increased since the comparison exam. IMPRESSION: 1. Streaky opacities in the right medial lung base which are increased since the comparison exam and may relate to atelectasis and/or infiltrate. 2. Redemonstrated elevation of the left hemidiaphragm. Dictated by: Dictated on workstation # [id number]
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
[2019-09-04] MEDS: oxyCODONE/APAP 5/325MG (PERCOCET 5) TABLET PO PRN ×2 (09:05→13:54)
[2019-09-04] MEDS: LACTOBACILLUS ACIDOPHILUS (PROBIOTIC) CAPSULE PO SCH ×3 (09:05→18:30)
[2019-09-04] MEDS: DOCUSATE SODIUM 100 MG (COLACE) CAP PO SCH ×2 (09:05→20:40)
[2019-09-04] MEDS: PANTOPRAZOLE 40 MG (PROTONIX) VIAL IV SCH (09:08)
[2019-09-04 09:15] LABS: OCCULT BLOOD,GASTRIC FLUID POSITIVE (NEGATIVE)
--- NOTE | 2019-09-04 09:43 | NUR ---
This nurse called SBAR report to Jennifer RN on 4th floor. Patient is transferring to room 411. This nurse transferred patient via bed. Jennifer and PCT notified of patients arrival to room.
[2019-09-04] MEDS: VANCOMYCIN 1 GM/NS 250 ML IVPB IV SCH ×2 (09:58)
[2019-09-04] MEDS ORDERED: PRD20T PO (11:14)
[2019-09-04] MEDS ORDERED: ATOR20TA66 PO (11:14)
[2019-09-04] MEDS ORDERED: ALB0.5V INH (11:14)
[2019-09-04] MEDS ORDERED: MULT-166 PO (11:14)
[2019-09-04] MEDS ORDERED: ONDA-105 PO (11:14)
[2019-09-04] MEDS ORDERED: DORZ10DR27 OU (11:14)
[2019-09-04] MEDS ORDERED: HYDR-3812 PO (11:14)
[2019-09-04] MEDS ORDERED: GABA-490 PO (11:14)
[2019-09-04] MEDS ORDERED: ASPI325T32 PO (11:14)
[2019-09-04] MEDS ORDERED: LATA2.5D5 OU (11:14)
[2019-09-04] MEDS ORDERED: VIT1CAPS5 PO (11:14)
[2019-09-04] MEDS ORDERED: ZOLP5TAB7 PO (11:14)
[2019-09-04] MEDS ORDERED: DOCU100C37 PO (11:14)
[2019-09-04] MEDS ORDERED: FLUC200T5 PO (11:14)
[2019-09-04] MEDS ORDERED: PROP20TA5 PO (11:14)
[2019-09-04] MEDS ORDERED: AMOX1TAB11 PO (11:14)
[2019-09-04] MEDS ORDERED: BENA1TAB13 PO (11:14)
[2019-09-04] MEDS ORDERED: OXYB5TAB13 PO (11:14)
[2019-09-04] MEDS ORDERED: LORA10TA7 PO (11:14)
[2019-09-04] MEDS ORDERED: RT-ALBUINH IH (11:14)
[2019-09-04] MEDS ORDERED: TIMO5DRO5 OU (11:16)
[2019-09-04] MEDS ORDERED: VIT1CAPS44 PO (11:18)
--- NOTE | 2019-09-04 11:20 | NUR ---
SPOKE WITH THE PT- HE [facility] IN [place] BUT HE WANTED ME TO REACH OUT TO HIS DAUGHTER ANDREW SINCE SHE KNOW HIS MEDS. I GOT A MED LIST AND [facility] DATES [facility] (I WILL ATTACH A COPY TO HIS CHART)WENT THRU THE EXT MED HISTORY AND CALLED ANDREW TO COMPLETE THE MED REC THE FOLLOWING ARE FILL DATES FROM [facility]: 10-26-2018 ALBUTEROL HFA#3 04-20-2019 LORATADINE 10MG #90/90DS 04-24-2019 GABAPENTIN 400MG #360/90DS 04-24-2019 MTV W/ MINERALS #90/90DS 04-24-2019 TIMOLOL 0.5% #1/30DS- I DID DOCUMENT THE PAST DUE FILL ON THE MED REC 04-24-2019 LATANOPROST 0.005% #1DS- I DID DOCUMENT THE PAST DUE FILL ON THE MED REC 04-24-2019 DORZOLAMIDE 2% #1/90DS 04-24-2019 DOCUSATE 100MG #200/100DS 04-24-2019 ATORVASTATIN 20MH #45/90DS 04-24-2019 ASPIRIN 325MG #100/100DS 06-22-2019 ALBUTEROL 0.083% #180 07-18-2019 PRESERVISION AERDS 2 #120/60DS 08-15-2019 ZOLPIDEM 5MG #30/30DS ANDREW WENT THRU ALL THE MEDICATIONS WITH ME AND WAS ABLE TO TELL ME HOW/WHEN PT TAKES EACH MED PROPRANOLOL 20MG WAS LAST FILLED ON 05-13-2019 #60/30DS- WHEN I SPOKE WITH ANDREW SHE LET ME KNOW THAT HE HAD PREVIOUSLY RECEIVED 40MG FROM [facility] AND HE HAD BEEN SPLITTING THEM IN HALF SO THE FILL FROM THE [facility] HAD LASTED HIM AWHILE.
--- NOTE | 2019-09-04 11:43 | Physical Therapy Evaluation ---
PT Evaluation-General Medical Diagnosis Admission Date Sep 03, 2019 at 13:25 Medical Diagnosis: severe sepsis/pneumonia/hypoxia/ARF Onset Date: Sep 03, 2019 Therapy Diagnosis Therapy Diagnosis: debility/weakness Height/Weight Height (Feet): 5 Height (Inches): 11.00 Weight (Pounds): 150 Precautions Precautions/Isolations: Fall Prevention, Standard Precautions Referral Physician: Perla Reason for Referral: Evaluation/Treatment Medical History Pertinent Medical History: CABG, CAD, HTN, Renal Insufficiency Current History EMS secondary to fall and nausea/fatigue Reviewed History: Yes Social History Home: Single Level Current Living Status: Alone Entry Into Home: Ramp AC is broken and being fixed at his home per family Prior Prior Level of Function SCALE: Activities may be completed with or without assistive devices. 8-Sigoazzywj-kopjdeh completes the activity by him/herself with no assistance from a helper. 5-Set-up or Clean-up Assistance-helper sets up or cleans up; patient completes activity. Hayward assists only prior to or following the activity. 4-Supervision or Touching Assistance-helper provides verbal cues and/or touching/steadying and/or contact guard assistance as patient completes activity. Assistance may be provided throughout the activity or intermittently. 3-Partial/Moderate Assistance-helper does LESS THAN HALF the effort. Hayward lifts, holds or supports trunk or limbs, but provides less than half the effort. 2-Substantial/Maximal Assistance-helper does MORE THAN HALF the effort. [place] lifts or holds trunk or limbs and provides more than half the effort. 6-Txfohemic-kelumk does ALL the effort. Patient does none of the effort to comp lete the activity. Or, the assistance of 2 or more helpers is required for the patient to complete the activity. If activity was not attempted, code reason: 7-Patient Refused. 9-Not Applicable-not attempted and the patient did not perform the activity before the current illness, exacerbation or injury. 10-Not Attempted due to Environmental Limitations-(lack of equipment, weather restraints, etc.). 88-Not Attempted due to Medical Conditions or Safety Concerns. Bed Mobility: 6 Transfers (B,C,W/C): 6 Gait: 6 Stairs: 9 Wheelchair Mobility: 9 Indoor Mobility (Ambulation): Independent Stairs: Not Applicalbe Prior Devices Use: Walker (4WW) PT Evaluation-Current Subjective Patient agrees to PT. He reports he is feeling better today. Daughter present. Pain Numeric Pain Scale: 0-No Pain Location: No Pain Reported Objective Patient Orientation: Normal For Age Attachments: Loomis Catheter, IV ROM/Strength ROM Lower Extremities bilateral LE WFL Strength Lower Extremities 3+/5 grossly bilateral LE Integumentary/Posture Integumentary refer to nursing notes Bladder Incontinence: Loomis Cath Posture slightly kyphotic Neuromuscular (Tone, Coordination, Reflexes) grossly intact Sensory Vision: Functional Hearing: Functional Sensation Right Lower Extremit: Intact Sensation Left Lower Extremity: Intact Transfers Sit to Stand (QC): 4 Gait Does the Patient Walk?: Yes Mode of Locomotion: Walk Anticipated Mode of Locomotion: Walk Walk 10 feet (QC): 4 Walk 50 ft with 2 Turns(QC): 4 Walk 150 ft (QC): 4 Distance: 200' Gait Assistive Device: Walker 4 Wheeled Comments/Gait Description NBOS/shuffle gait/step to sequence leading with left LE Wheelchair Training Does the Pt Use a Wheelchair?: No Balance Sitting Static: Normal Sitting Dynamic: Normal Standing Static: Fair Standing Dynamic: Fair Assessment/Needs 79 y.o. male, will benefit from skilled PT to address functional strength and mobility to improve current LOF to safely return to home at maximum LOF. Rehab Potential: Fair PT Clam Treader Goals Clam Treader Goals PT Clam Treader Goals Time Frame: Sep 15, 2019 Roll Left & Right (QC): 6 Sit to Lying (QC): 6 Lying-Sitting on Side/Bed(QC): 6 Sit to Stand (QC): 6 Chair/Yvp-mf-Ooguu Xfer(QC): 6 Toilet Transfer (QC): 6 Car Transfer (QC): 6 Does the Patient Walk: Yes Walk 10 feet (QC): 6 Walk 50ft with 2 Turns (QC): 6 Walk 150 ft (QC): 6 PT Plan Problem List Problem List: Activity Tolerance Treatment/Plan Treatment Plan: Continue Plan of Care Treatment Plan: Bed Mobility, Education, Functional Activity Jose, Functional Strength, Gait, Safety, Therapeutic Exercise, Transfers Treatment Duration: Sep 15, 2019 Frequency: 6 times per week Estimated Hrs Per Day: .25 hour per day Patient and/or Family Agrees t: Yes Time/GCodes Time In: 1120 Time Out: 1132 Total Billed Treatment Time: 12 Total Billed Treatment 1 visit EVMod 12 min HUY WHITE PT Sep 04, 2019 11:42
--- NOTE | 2019-09-04 12:47 | NUR ---
CM/SS visited with the patient for social service consult. Plan: The patient will return home at time of discharge with transportation from his daughter Valeri. The patient reports that he is doing well but had a rough night due to vomiting and nausea. Dietary brought in a lunch tray during the visit and patient reports that it looked good but he was scared to eat right now. Home and resources: The patient is currently living alone at home. He states that he does have a cat named "zain zain". The patient states that [employer] does deliver one meal a day for four days. He reports that for 3 hours total a week he has a woman named Elly that comes to help with homemaker services and grocery shopping. The Patient reports that he also has a nurse that comes one time a week through the [place]. Home Health: He did say they have used home health with [facility] in [place] in the past but are not currently on service. DME: The patient does have a walker that he got through the [facility]. Air Conditioner: The patient's daughter reported at time of admission that the patient's air conditioning was broken. During that time, the patient was staying at a hotel. According to the patient's daughter they are supposed to be fixing the air conditioner today. No further needs at this time.
--- NOTE | 2019-09-04 12:54 | Occupational Therapy Eval ---
OT Evaluation-General/PLF Medical Diagnosis Admission Date Sep 03, 2019 at 13:25 Medical Diagnosis: severe sepsis/pneumonia/hypoxia/ARF Onset Date: Sep 03, 2019 Therapy Diagnosis Therapy Diagnosis: Decreased ADL status Height/Weight Height (Feet): 5 Height (Inches): 11.00 Weight (Pounds): 150 Precautions Precautions/Isolations: Fall Prevention, Standard Precautions Referral Physician: Perla Referral Reason: Activity Tolerance, Self Care, Evaluation/Treatment, Strengthening/ROM Medical History Pertinent Medical History: CABG, CAD, HTN, Renal Insufficiency Current History Pt recently in hospital 2* to UTI. Pt fell/ passed out at home with daughter present. ED with hypotension, UTI, severe sepsis Reviewed History: Yes Social History Home: Single Level Current Living Status: Alone Entry Into Home: Ramp ADL-Prior Level of Function SCALE: Activities may be completed with or without assistive devices. 5-Rrlegpbhdi-sxfyyhp completes the activity by him/herself with no assistance from a helper. 5-Set-up or Clean-up Assistance-helper sets up or cleans up; patient completes activity. [place] assists only prior to or following the activity. 4-Supervision or Touching Assistance-helper provides verbal cues and/or touching/steadying and/or contact guard assistance as patient completes activity. Assistance may be provided throughout the activity or intermittently. 3-Partial/Moderate Assistance-helper does LESS THAN HALF the effort. [place] lifts, holds or supports trunk or limbs, but provides less than half the effort. 2-Substantial/Maximal Assistance-helper does MORE THAN HALF the effort. [place] lifts or holds trunk or limbs and provides more than half the effort. 7-Boibhgdcu-emxohy does ALL the effort. Patient does none of the effort to complete the activity. Or, the assistance of 2 or more helpers is required for the patient to complete the activity. If activity was not attempted, code reason: 7-Patient Refused. 9-Not Applicable-not attempted and the patient did not perform the activity before the current illness, exacerbation or injury. 10-Not Attempted due to Environmental Limitations-(lack of equipment, weather restraints, etc.). 88-Not Attempted due to Medical Conditions or Safety Concerns. ADL PLOF Comments Pt states IND with ADL tasks, requires assist with driving/ IADL activities. Pt use of 4WW fx amb and grabber for LB dressing tasks. Self Care: Independent Functional Cognition: Independent DME/Equipment: Bath Chair, Grab Bars, Shower DME/Equipment Comments dowel pin man, walk in shower, sc, gb, ramp, 4WW Drive Self: No OT Current Status Subjective Pt seen in bed, transferred from ICU to 4th. Pt alert/ oriented. Pt agrees to OT eval/ treat. Pt denies current pain, then states chronic pain LEs and then pain in groin upon movement. Mental Status/Objective Patient Orientation: Person, Place, Situation, Normal For Age Attachments: Loomis Catheter, IV Current Glasses/Contacts: Yes (at home) Hand Dominance: Left Upper Extremity ROM WFL BUE R hand decreased ROM due to ulnar nn issue years ago, R to L hand dominance. Upper Extremity Coordination R decreased due to ulnar nn injury L WFL Upper Extremity Sensation no c/o paresthesias Upper Extremity Strength R shoulder flexion: 3+/5 L shoulder flexion: 4/5 bilateral biceps: 4/5 R hand rewinder: moderate L hand rewinder: moderate + ADL-Treatment Eating (QC): 6 (drinks with IND.) On/Off Footwear (QC): 1 (TD EOB) Toileting Hygiene (QC): 2 (Pt requests that OT completes josie hygiene + cream application due to pain.) Other Treatments Pt seen in bed. Pt provides hx/ home env/ events leading to fall. Pt states utilizes 4WW in home, daughter assists with outside the home IADLs and travel. States utilizes dowel pin man for LB dressing/ shoes. Pt agrees to OT tx, completes bed mob with min A to EOB. Pillow is between legs, this removed- pillow has brown stains where was touching groin, pt states pain in groin area. Pt sits with CGA, increased pain during movement in groin area. Pt states was not able to change brief while soiled and created skin rash/ maceration. Pt completes sit to stand SBA and stand- pivot transfer with CGA to recliner. Josie hygiene/ cream donning completed to groin. Pt left in recliner, pt declines LEs elevated, all needs met, call light in reach; pt educated on OT role and continuation of OT for ther ex, fx strength/ endurance, ADL retraining/ AE use. Pt agrees. Education OT Patient Education: Correct positioning, Purpose of tx/functional activities, Safety issues Teaching Recipient: Patient Teaching Methods: Demonstration, Discussion Response to Teaching: Verbalize Understanding, Return Demonstration OT Short Term Goals Short Term Goals Lower body dressin Putting on/taking off footwear: 4 OT Senior Living Goals Director Patient Goals Time Frame: Sep 11, 2019 Eating (QC): 6 Oral Hygiene (QC): 6 Toileting Hygiene (QC): 6 Shower/Bathe Self (QC): 6 Upper Body Dressing (QC): 6 Lower Body Dressing (QC): 6 On/Off Footwear (QC): 6 Additional Goals: 1-Demonstrate ADL Tasks, 2-Verbalize Understanding, 3- ImproveStrength/Jose 1=Demonstrate adherence to instructed precautions during ADL tasks. 2=Patient will verbalize/demonstrate understanding of assistive devices/modifications for ADL. 3=Patient will improve strength/tolerance for activity to enable patient to perform ADL's. OT Education/Plan Problem List/Assessment Assessment: Decreased Activ Tolerance, Decreased UE Strength, Dependent Transfers, Impaired Bed Mobility, Impaired Coordination, Impaired Funct Balance, Impaired I ADL's, Impaired Self-Care Skills, Restricted Funct UE ROM Discharge Recommendations Plan/Recommendations: Continue POC Therapy Discharge Recommendati: Intermittent Supervision, Post Acute OT Equpiment Recommendations-D/C: Hip Kit Treatment Plan/Plan of Care Treatment,Training & Education: Yes Patient would benefit from OT for education, treatment and training to promote independence in ADL's, mobility, safety and/or upper extremity function for ADL's. Plan of Care: ADL Retraining, Caregiver Training, Functional Mobility, UE Funct Exercise/Act Treatment Duration: Sep 11, 2019 Frequency: 5 times per week Estimated Hrs Per Day: .25 hour per day Agreement: Yes Rehab Potential: Fair Time/GCodes Start Time: 10:24 Stop Time: 10:45 Total Time Billed (hr/min): 31 Billed Treatment Time 1, ZOILA SHERIFF (31) JIMMY PARSONS OTR Sep 04, 2019 12:54
--- NOTE | 2019-09-04 14:01 | NUR ---
RD ASSESSMENT PMHx: HTN; CAD; hypercholesterolemia; renal failure PT INTERACTION: Pt was awake and pleasant during nutrition assessment. Pt states current appetite is poor and has been for the past several days. Note avg PO intake <25% meals, per chart review. Pt states following a regular diet at home, and has no issues with chewing/swallowing food. Pt states some recent issues with nausea, vomiting, constipation, and diarrhea, and that his last BM was "about 2days ago." Note pt currently on bowel regimen of colace BID, per chart review. Pt states recent 5# wt loss, but unsure of timeframe. Note unable to determine recent wt hx, per chart review. ABNORMAL NUTRITION-RELATED LAB VALUES LOW: K 3.5; Ca 7.9 HIGH: BUN 27 Est. kcal needs: 1650 kcal | 25 kcal/kg Est. Pro needs: 53 g Pro | 0.8 g Pro/kg PES STATEMENT: Inadequate oral intake (NI-2.1) related to loss of appetite | nausea | vomiting | constipation | diarrhea as evidenced by pt interview | avg PO intake <25% meals INTERVENTION: Continue with current diet order of 2000mg Na diet. Add Ensure Enlive (orville) to meals TID, for increased kcal intake. Provides 350 kcal and 13 g Pro per serving. Encouraged pt to eat when able. Will continue to follow and reassess as pt needs, intake, and status change. MONITOR/EVALUATE: PO Intake; Plan of Care; Hydration Status; Weight Status; Lab Values Celestina Cornejo, MS, RD, LD
[2019-09-04] MEDS: traZODone 50 MG (DESYREL) TAB PO SCH (20:40)
[2019-09-04] MEDS: LATANOPROST 0.005% (XALATAN) OPHTH SOLN 2.5 ML OU SCH (20:40)
[2019-09-05 00:19] VITALS: BP 131/71
[2019-09-05 04:56] VITALS: BP 136/64
[2019-09-05] MEDS: NYSTATIN ORAL SUSP 5 ML UDC PO SCH ×3 (05:05→17:10)
[2019-09-05] MEDS: ENOXAPARIN 40 MG/0.4 ML (LOVENOX) SYR SC SCH (05:05)
[2019-09-05] MEDS: LACTATED RINGERS 1,000 ML IV SCH (05:21)
[2019-09-05 05:50] LABS: BASOPHILS % (AUTO) 0 % (0-10); EOSINOPHILS # (AUTO) 0.5 10^3/uL (0.0-0.3); EOSINOPHILS % (AUTO) 6 % (0-10); HEMATOCRIT 33 % (40-54); HEMOGLOBIN 10.8 G/DL (13.3-17.7); LYMPHOCYTES # (AUTO) 0.7 X 10^3 (1.0-4.0); LYMPHOCYTES % (AUTO) 9 % (12-44); MEAN CORPUSCULAR HEMOGLOBIN 30 PG (25-34); MEAN CORPUSCULAR HGB CONC 33 G/DL (32-36); MEAN CORPUSCULAR VOLUME 93 FL (80-99); MEAN PLATELET VOLUME 8.8 FL (7.4-10.4); MONOCYTES # (AUTO) 0.9 X 10^3 (0.0-1.0); MONOCYTES % (AUTO) 11 % (0-12); NEUTROPHILS # (AUTO) 6.3 X 10^3 (1.8-7.8); NEUTROPHILS % (AUTO) 75 % (42-75); PLATELET COUNT 349 10^3/uL (130-400); RED CELL DISTRIBUTION WIDTH 17.9 % (10.0-14.5); WHITE BLOOD COUNT 8.5 10^3/uL (4.3-11.0)
[2019-09-05 06:05] LABS: CHLORIDE 109 MMOL/L (98-107); POTASSIUM 3.6 MMOL/L (3.6-5.0); SODIUM 137 MMOL/L (135-145)
[2019-09-05 06:06] LABS: CALCIUM 7.8 MG/DL (8.5-10.1)
[2019-09-05 06:07] LABS: GLUCOSE 84 MG/DL (70-105)
[2019-09-05 06:08] LABS: CARBON DIOXIDE 15 MMOL/L (21-32)
[2019-09-05 06:11] LABS: CREATININE SERUM 0.89 MG/DL (0.60-1.30); GFR ESTIMATED > 60
[2019-09-05 06:12] LABS: BUN/CREATININE RATIO 17
[2019-09-05 08:00] VITALS: BP 127/62
[2019-09-05] MEDS: MEROPENEM 500 MG/SWFI 10 ML IV PUSH IV SCH ×4 (08:15→17:10)
[2019-09-05] MEDS: DOCUSATE SODIUM 100 MG (COLACE) CAP PO SCH (08:15)
[2019-09-05] MEDS: LACTOBACILLUS ACIDOPHILUS (PROBIOTIC) CAPSULE PO SCH ×3 (08:15→17:10)
[2019-09-05] MEDS: ONDANSETRON 4 MG/2 ML (SDV) Z0FRAN IV PRN ×2 (08:15→14:45)
[2019-09-05] MEDS: PANTOPRAZOLE 40 MG (PROTONIX) VIAL IV SCH (08:15)
--- NOTE | 2019-09-05 08:20 | Physician Query Clarification ---
PQ-Uncertain Diagnosis Admission/Discharge Admission Date: Sep 03, 2019 at 13:25 Discharge Date: The medical record reflects the following clinical scenario: Dr. Whalen, History/Risk Factors: Severe Sepsis Respiratory alkalosis secondary to hypoxia. Clinical Findings:09/03 chest xray impression: Streaky opacities in the right m edial lung base which are increased since the comparison exam and may relate to atelectasis and/or infiltrate. Treatment: IV Rocephin and IV Vancomycin HCI 750mg, Question: Is Pneumonia a clinically valid diagnosis? Pneumonia was documented in ED primary impression-Dr. Beach with no further documentation in the medical record. Please document a response in Progress Note or Discharge Summary. 1. Yes, clinically valid, condition resolved. 2. No, condition ruled out. 3. Other, with explanation of clinical findings. 4. Undetermined, no explanation for clinical findings. PHYSICIAN RESPONSE Diagnosis clinically valid: No, conditon ruled out Please remember a lack of response to the above will prompt a phone page by CDI/Coding staff. In responding to this query, please exercise your independent professional judgment. The purpose of this communication is to more accurately reflect the complexity of your patients condition. The fact that a question is asked does not imply that any particular answer is desired or expected. Thank you for your timely response to this clarification. Requestors name: Jocelyn Singleton [facility] Phone # ext [phone] or [phone] THIS PHYSICIAN QUERY FORM IS A PERMANENT PART OF THE MEDICAL RECORD JOCELYN SINGLETON Sep 05, 2019 08:19 JONO WHALEN MD Sep 05, 2019 13:23
--- NOTE | 2019-09-05 09:12 | Progress Note - Hospitalist ---
Subjective HPI/CC On Admission Date Seen by Provider: Sep 05, 2019 Time Seen by Provider: 09:07 Pt is a 79yoCM with a PMH of HTN who presented to the ER due to passing out. He states that he was recently in the hospital for a UTI at [facility]. He had returned home and his air conditioning went out of the weekend. He was staying in a hotel until it could be fixed but went home this morning because the servando was supposed to be there to work on it. It was 93 degrees in the house and unfortunately the repairman didn't have the right part. When his daughter tried to get him back out of the house he passed out prompting them to seek evaluation in the ER. He was found to be hypotensive on arrival and UA was consistent with UTI. He was admitted for severe sepsis. He has not complaints at this time and states he's feeling much better. Subjective/Events-last exam Pt reports doing well. No complaints. About to eat breakfast. He is unsure if AC is fixed yet. Focused Exam Lactate Level 09/03/19 08:26: Lactic Acid Level 2.28*H 09/03/19 10:45: Lactic Acid Level 1.85 09/04/19 05:45: Lactic Acid Level 0.96 Time of Focused Exam: 10:30 Objective Exam Vital Signs Vital Signs Date Time Temp Pulse Resp B/P (MAP) Pulse Ox O2 Delivery O2 Flow Rate FiO2 09/05/19 08:00 36.3 99 18 127/62 (83) 94 Room Air 09/03/19 23:00 1.00 Capillary Refill : Less Than 3 Seconds General Appearance: No Apparent Distress, WD/WN Respiratory: Lungs Clear, No Respiratory Distress Cardiovascular: Regular Rate, Rhythm, No Murmur Results/Procedures Lab Laboratory Tests 09/05/19 05:41 Patient resulted labs reviewed. Imaging: Reviewed Imaging Report Assessment/Plan Assessment and Plan Assess & Plan/Chief Complaint Severe Sepsis UTI Continue Merrem and Vanc for now Await sensitivities Continue to improve ELIJAH- improving Improved with IVF, will DC IVF as taking in pO intake well Continue to trend CAD s/p CABG HTN Resume home meds as able Chronic pain Continue home meds, oxycodone DVT ppx: Lovenox Clinical Quality Measures DVT/VTE Risk/Contraindication: Risk Factor Score Per Nursin RFS Level Per Nursing on Admit: 4+=Very High NIALL,JONO M MD Sep 05, 2019 09:12
[2019-09-05] MEDS: VANCOMYCIN 1 GM/NS 250 ML IVPB IV SCH ×2 (09:30)
[2019-09-05 12:00] VITALS: BP 125/73
--- NOTE | 2019-09-05 13:19 | NUR ---
CM/SS follow up. The patient was in bed with daughter at bedside. The patient's daughter Valeri asked this sw if he could have any more nausea mediations. CM/SS found patient's primary care nurse and informed them of Valeri's request. CM/SS spoke with the patient and Valeri that the physician felt the patient will need home health. The patient reports that he does have the nurse from home health but does not have PT or OT. The patient reports it is still with [facility]: CM/SS contacted Perla from [facility] to inform her that patient may be discharging tomorrow and will need to continue with home health. She verbalized understanding. CM/SS will fax home health orders tomorrow when available. CM/SS will continue to follow.
--- NOTE | 2019-09-05 13:46 | NUR ---
Swing Bed Note: Qualifies for Swing Bed for continued need of short term Physical et Occupational therapies (Pneumonia, Severe Sepsis) with ultimate goal to return home at his prior level of function of independent functioning with ADLS. Prior to this admission he was living in his home by himself et was receiving weekly home health care visits from [facility]. Dr. Whalen will visit with the patient about swing bed tomorrow 09/05 and then he will likely admit to swing bed status to continue with his plan of care. No further interventions noted at this time.
--- NOTE | 2019-09-05 14:20 | NUR ---
Pastoral care visit.
--- NOTE | 2019-09-05 14:41 | NUR ---
slight temperature at this time. 37.3. Tylenol given per daughter request
--- NOTE | 2019-09-05 15:11 | Physical Therapy Daily Note ---
PT Daily Note-Current Subjective Pt. declined Rx in AM as he was just finished with a meal and had some indigestion. Pt. agreed to rx in PM. Pt. c/o fatigue. Dtr present and very supportive and encourages pt. to get out of bed. Pain Location: No Pain Reported Mental Status Patient Orientation: Person, Place, Situation Attachments: Loomis Catheter Transfers SCALE: Activities may be completed with or without assistive devices. 4-Teowaqhrfj-paiyqcf completes the activity by him/herself with no assistance from a helper. 5-Set-up or Clean-up Assistance-helper sets up or cleans up; patient completes activity. [place]rand assists only prior to or following the activity. 4-Supervision or Touching Assistance-helper provides verbal cues and/or touching/steadying and/or contact guard assistance as patient completes activity. Assistance may be provided throughout the activity or intermittently. 3-Partial/Moderate Assistance-helper does LESS THAN HALF the effort. Bertrand lifts, holds or supports trunk or limbs, but provides less than half the effort. 2-Substantial/Maximal Assistance-helper does MORE THAN HALF the effort. Bertrand lifts or holds trunk or limbs and provides more than half the effort. 8-Elebjbczc-ezmpje does ALL the effort. Patient does none of the effort to complete the activity. Or, the assistance of 2 or more helpers is required for the patient to complete the activity. If activity was not attempted, code reason: 7-Patient Refused. 9-Not Applicable-not attempted and the patient did not perform the activity before the current illness, exacerbation or injury. 10-Not Attempted due to Environmental Limitations-(lack of equipment, weather restraints, etc.). 88-Not Attempted due to Medical Conditions or Safety Concerns. min assist out bed, min assist sit to stand and stand to sit , as pt. flings backwards hard at sit Gait Training Does the Patient Walk?: Yes Gait Assistive Device: Walker 4 Wheeled 15ftx2 per pts tolerance and agreement. CGA to min assist with pt requiring some assistance to turn and manuever device and to approach chair and toilet safely. Exercises Seated Therapy Exercises: Ankle pumps, Sit to stand, Long arc quads, Hip flexion, Hip abd/add Seated Reps: 12 Treatments pt. walked in to toilet to attempt BM. Not successful, then ambulated in to room and seated in recliner with daughter present to help him adjust etc. Assessment Current Status: Fair Progress PT Tube Skiver Goals Tube Skiver Goals PT Custodial Goals Time Frame: Sep 15, 2019 Roll Left & Right (QC): 6 Sit to Lying (QC): 6 Lying-Sitting on Side/Bed(QC): 6 Sit to Stand (QC): 6 Chair/Aay-bw-Gieml Xfer(QC): 6 Toilet Transfer (QC): 6 Car Transfer (QC): 6 Does the Patient Walk: Yes Walk 10 feet (QC): 6 Walk 50ft with 2 Turns (QC): 6 Walk 150 ft (QC): 6 PT Plan Treatment/Plan Treatment Plan: Continue Plan of Care Treatment Plan: Bed Mobility, Education, Functional Activity Jose, Functional Strength, Gait, Safety, Therapeutic Exercise, Transfers Treatment Duration: Sep 15, 2019 Frequency: 6 times per week Estimated Hrs Per Day: .25 hour per day Patient and/or Family Agrees t: Yes Safety Risks/Education Patient Education: Gait Training, Transfer Techniques, Correct Positioning, Safety Issues Teaching Recipient: Patient Teaching Methods: Discussion Response to Teaching: Verbalize Understanding, Return Demonstration, Reinforcement Needed Time/GCodes Time In: 1420 Time Out: 1445 Total Billed Treatment Time: 25 Total Billed Treatment 1,GT15m,FA10m JULIUS LIMA MEAT WRAPPER Sep 05, 2019 15:11
--- NOTE | 2019-09-05 15:35 | Occupational Ther Daily Note ---
OT Current Status-Daily Note Subjective Pt. in bed. Daughter at bedside. Pt. has emesis bucket at bedside and reports that he has been ill. He states he has been nauseated but took something for it. Pt. declines OOB activity at this time, but agrees to bilateral UE exercises. Daughter reports that she plans to make sure that he gets up for lunch later. Appearance Pt. in bed. Oriented and alert. Mental Status/Objective Patient Orientation: Person, Place, Time, Situation ADL-Treatment Therapy Code Descriptions/Definitions Functional [place] Measure: 0=Not Assessed/NA 4=Minimal Assistance 1=Total Assistance 5=Supervision or Setup 2=Maximal Assistance 6=Modified [place] 3=Moderate Assistance 7=Complete IndependenceSCALE: Activities may be completed with or without assistive devices. 8-Mchbjrqitt-qgsxuka completes the activity by him/herself with no assistance from a helper. 5-Set-up or Clean-up Assistance-helper sets up or cleans up; patient completes activity. [place] assists only prior to or following the activity. 4-Supervision or Touching Assistance-helper provides verbal cues and/or touching/steadying and/or contact guard assistance as patient completes activity. Assistance may be provided throughout the activity or intermittently. 3-Partial/Moderate Assistance-helper does LESS THAN HALF the effort. [place] lifts, holds or supports trunk or limbs, but provides less than half the effort. 2-Substantial/Maximal Assistance-helper does MORE THAN HALF the effort. [place] lifts or holds trunk or limbs and provides more than half the effort. 7-Mgoardcsg-apdsdz does ALL the effort. Patient does none of the effort to complete the activity. Or, the assistance of 2 or more helpers is required for the patient to complete the activity. If activity was not attempted, code reason: 7-Patient Refused. 9-Not Applicable-not attempted and the patient did not perform the activity before the current illness, exacerbation or injury. 10-Not Attempted due to Environmental Limitations-(lack of equipment, weather restraints, etc.). 88-Not Attempted due to Medical Conditions or Safety Concerns. Other Treatment Pt. completes bilateral UE AROM exercises, x 3 exercises, x 20 reps each in all planes. Pt. tolerated well and participated in conversation while doing this. Pt. talks about his spouse who has recently , and talked about being in [place]. Pt. is made comfortable at end of treatment and all needs met. Education OT Patient Education: Correct positioning, Exercise program, Progress toward Goal/Update tx plan, Purpose of tx/functional activities, Reviewed precautions, Rehab process, Transfer techniques Teaching Recipient: Patient Teaching Methods: Demonstration, Discussion Response to Teaching: Verbalize Understanding, Return Demonstration OT Short Term Goals Short Term Goals Lower body dressin Putting on/taking off footwear: 4 OT Care Home Goals Audio Visual Aide Goals Time Frame: Sep 11, 2019 Eating (QC): 6 Oral Hygiene (QC): 6 Toileting Hygiene (QC): 6 Shower/Bathe Self (QC): 6 Upper Body Dressing (QC): 6 Lower Body Dressing (QC): 6 On/Off Footwear (QC): 6 Additional Goals: 1-Demonstrate ADL Tasks, 2-Verbalize Understanding, 3- ImproveStrength/Jose 1=Demonstrate adherence to instructed precautions during ADL tasks. 2=Patient will verbalize/demonstrate understanding of assistive devices/modifications for ADL. 3=Patient will improve strength/tolerance for activity to enable patient to perform ADL's. OT Education/Plan Problem List/Assessment Assessment: Decreased Activ Tolerance, Impaired I ADL's, Impaired Self-Care Skills Discharge Recommendations Plan/Recommendations: Continue POC Therapy Discharge Recommendati: Home & Family Treatment Plan/Plan of Care Treatment,Training & Education: Yes Patient would benefit from OT for education, treatment and training to promote independence in ADL's, mobility, safety and/or upper extremity function for ADL's. Plan of Care: ADL Retraining, Caregiver Training, Functional Mobility, UE Funct Exercise/Act Treatment Duration: Sep 11, 2019 Frequency: 5 times per week Estimated Hrs Per Day: .25 hour per day Agreement: Yes Rehab Potential: Fair Time/GCodes Start Time: 11:25 Stop Time: 11:45 Total Time Billed (hr/min): 20 Billed Treatment Time 1, Ex OJ ALY OT Sep 05, 2019 15:35
[2019-09-05 15:56] VITALS: BP 112/58
[2019-09-05 19:37] VITALS: BP 115/68
[2019-09-05] MEDS: LATANOPROST 0.005% (XALATAN) OPHTH SOLN 2.5 ML OU SCH (20:54)
[2019-09-05] MEDS: traZODone 50 MG (DESYREL) TAB PO SCH (20:54)
[2019-09-06 00:12] VITALS: BP 132/75
[2019-09-06] MEDS: MEROPENEM 500 MG/SWFI 10 ML IV PUSH IV SCH ×4 (00:23→08:39)
[2019-09-06] MEDS: NYSTATIN ORAL SUSP 5 ML UDC PO SCH ×3 (00:23→12:36)
[2019-09-06 04:28] VITALS: BP 121/69
[2019-09-06 05:37] LABS: BASOPHILS % (AUTO) 0 % (0-10); EOSINOPHILS # (AUTO) 0.3 10^3/uL (0.0-0.3); EOSINOPHILS % (AUTO) 3 % (0-10); HEMATOCRIT 37 % (40-54); HEMOGLOBIN 12.3 G/DL (13.3-17.7); LYMPHOCYTES # (AUTO) 0.9 X 10^3 (1.0-4.0); LYMPHOCYTES % (AUTO) 9 % (12-44); MEAN CORPUSCULAR HEMOGLOBIN 30 PG (25-34); MEAN CORPUSCULAR HGB CONC 33 G/DL (32-36); MEAN CORPUSCULAR VOLUME 91 FL (80-99); MEAN PLATELET VOLUME 8.8 FL (7.4-10.4); MONOCYTES # (AUTO) 1.5 X 10^3 (0.0-1.0); MONOCYTES % (AUTO) 14 % (0-12); NEUTROPHILS # (AUTO) 7.9 X 10^3 (1.8-7.8); NEUTROPHILS % (AUTO) 74 % (42-75); PLATELET COUNT 366 10^3/uL (130-400); RED CELL DISTRIBUTION WIDTH 17.3 % (10.0-14.5); WHITE BLOOD COUNT 10.6 10^3/uL (4.3-11.0)
[2019-09-06 05:57] LABS: BUN/CREATININE RATIO 13; CALCIUM 7.9 MG/DL (8.5-10.1); CARBON DIOXIDE 19 MMOL/L (21-32); CHLORIDE 105 MMOL/L (98-107); CREATININE SERUM 0.83 MG/DL (0.60-1.30); GFR ESTIMATED > 60; GLUCOSE 104 MG/DL (70-105); POTASSIUM 3.6 MMOL/L (3.6-5.0); SODIUM 136 MMOL/L (135-145)
[2019-09-06] MEDS: ENOXAPARIN 40 MG/0.4 ML (LOVENOX) SYR SC SCH (06:16)
[2019-09-06 08:00] VITALS: BP 117/71
[2019-09-06] MEDS: PANTOPRAZOLE 40 MG (PROTONIX) VIAL IV SCH (08:39)
[2019-09-06] MEDS: LACTOBACILLUS ACIDOPHILUS (PROBIOTIC) CAPSULE PO SCH ×2 (08:39→12:36)
[2019-09-06] MEDS: ONDANSETRON 4 MG/2 ML (SDV) Z0FRAN IV PRN (08:44)
--- NOTE | 2019-09-06 09:29 | NUR ---
TRUMAN/SS follow up. Patient will be admitted to Swing Bed today 09/05 for IV antibiotics and a continuation of therapies. For further information see Nery REILLY coordinators notes. TRUMAN/JAILENE contacted [facility] in [place] and spoke with Phong to inform them that patient will not discharge until next week. She verbalized understanding. TRUMAN/JAILENE faxed over clinical for update. TRUMAN/JAILENE will continue to follow with Nery GREER for discharge planning.
--- NOTE | 2019-09-06 10:08 | Occupational Ther Daily Note ---
OT Current Status-Daily Note Subjective Pt now on contact precautions due to urine content. Pt seen in bed/ reclined. Pt states no pain at rest though c/o nausea. Pt states vomited last night. Pt agrees to therapy, though denies OOB at this time. Mental Status/Objective Patient Orientation: Normal For Age Attachments: [place] Catheter ADL-Treatment Therapy Code Descriptions/Definitions Functional [place] Measure: 0=Not Assessed/NA 4=Minimal Assistance 1=Total Assistance 5=Supervision or Setup 2=Maximal Assistance 6=Modified [place] 3=Moderate Assistance 7=Complete IndependenceSCALE: Activities may be completed with or without assistive devices. 0-Klucavoblo-vraajli completes the activity by him/herself with no assistance from a helper. 5-Set-up or Clean-up Assistance-helper sets up or cleans up; patient completes activity. [place] assists only prior to or following the activity. 4-Supervision or Touching Assistance-helper provides verbal cues and/or touching/steadying and/or contact guard assistance as patient completes activity. Assistance may be provided throughout the activity or intermittently. 3-Partial/Moderate Assistance-helper does LESS THAN HALF the effort. [place] lifts, holds or supports trunk or limbs, but provides less than half the effort. 2-Substantial/Maximal Assistance-helper does MORE THAN HALF the effort. [place] lifts or holds trunk or limbs and provides more than half the effort. 5-Bhfqwbohe-wltqlk does ALL the effort. Patient does none of the effort to complete the activity. Or, the assistance of 2 or more helpers is required for the patient to complete the activity. If activity was not attempted, code reason: 7-Patient Refused. 9-Not Applicable-not attempted and the patient did not perform the activity before the current illness, exacerbation or injury. 10-Not Attempted due to Environmental Limitations-(lack of equipment, weather restraints, etc.). 88-Not Attempted due to Medical Conditions or Safety Concerns. Eating (QC): 6 (drinks water with IDN.) Oral Hygiene (QC): 7 (denies this am. ) Shower/Bathe Self (QC): 7 (denies sponge bath, stating his daughter gave him one yesterday) Upper Body Dressing (QC): 7 (gown is soiled, pt is offered new gown. Pt denies.) Other Treatment Pt denies ADLs. Pt does wash face with s/u. Pt agrees to ther ex in bed. Pt completes 10 reps of 3 ex, with yellow theraband, skilled cues for placement and tension. During this time DO enters, non-skilled/ non-billed time. DO expresses increased time period for pt's placement in acute; due to this, pt is encouraged to sit up in bed/ ambulate to chair to decrease PNA risk/ continue working towards functional endurance. Pt denies, later agrees to sit up in bed. HOB elevated and pt completes additional ther ex. Pt denies needs, call light in reach. Education OT Patient Education: Correct positioning, Exercise program, Home exercise program, Progress toward Goal/Update tx plan, Purpose of tx/functional activities Teaching Recipient: Patient Teaching Methods: Demonstration, Discussion Response to Teaching: Verbalize Understanding, Return Demonstration OT Short Term Goals Short Term Goals Lower body dressin Putting on/taking off footwear: 4 OT Prison Goals Machine Operator Hop Picker Goals Time Frame: Sep 11, 2019 Eating (QC): 6 Oral Hygiene (QC): 6 Toileting Hygiene (QC): 6 Shower/Bathe Self (QC): 6 Upper Body Dressing (QC): 6 Lower Body Dressing (QC): 6 On/Off Footwear (QC): 6 Additional Goals: 1-Demonstrate ADL Tasks, 2-Verbalize Understanding, 3-ImproveStrength/Jose 1=Demonstrate adherence to instructed precautions during ADL tasks. 2=Patient will verbalize/demonstrate understanding of assistive devices/modifications for ADL. 3=Patient will improve strength/tolerance for activity to enable patient to perf orm ADL's. OT Education/Plan Problem List/Assessment Assessment: Decreased Activ Tolerance, Decreased UE Strength, Dependent Transfers, Impaired I ADL's, Impaired Self-Care Skills Discharge Recommendations Plan/Recommendations: Continue POC Treatment Plan/Plan of Care Treatment,Training & Education: Yes Patient would benefit from OT for education, treatment and training to promote independence in ADL's, mobility, safety and/or upper extremity function for ADL's. Plan of Care: ADL Retraining, Caregiver Training, Functional Mobility, UE Funct Exercise/Act Treatment Duration: Sep 11, 2019 Frequency: 5 times per week Estimated Hrs Per Day: .25 hour per day Agreement: Yes Rehab Potential: Fair Time/GCodes Start Time: 09:05 Stop Time: 09:20 Total Time Billed (hr/min): 10 (15-5 min DO entry.) Billed Treatment Time 1, EX (10) JIMMY PARSONS OTR Sep 06, 2019 10:08
[2019-09-06] MEDS ORDERED: TROUGH ORDER-PHARMACY XX NR (10:30)
[2019-09-06] MEDS ORDERED: VANCOMYCIN 1 GM/NS 250 ML IVPB IV SCH ×2 (12:00)
[2019-09-06] MEDS ORDERED: VANCOMYCIN 1500 MG/NS 500 ML IVPB IV SCH ×2 (12:00)
--- NOTE | 2019-09-06 12:51 | Discharge Summary ---
Diagnosis/Chief Complaint Date of Admission Sep 03, 2019 at 13:25 Date of Discharge Admission Diagnosis Severe Sepsis Primary Care Alek Perry DO Discharge Summary Discharge Physical Exam Allergies: Coded Allergies: sulfamethoxazole (Verified Allergy, Unknown, 05/09/18) trimethoprim (Verified Allergy, Unknown, 05/09/18) Uncoded Allergies: EES-400 (Allergy, Unknown, 05/09/18) Vitals & I&Os Vital Signs Date Time Temp Pulse Resp B/P (MAP) Pulse Ox O2 Delivery O2 Flow Rate FiO2 09/06/19 09:00 Room Air 09/06/19 08:00 36.2 111 16 117/71 (86) 94 09/03/19 23:00 1.00 General Appearance: No Apparent Distress, WD/WN Cardiovascular: Regular Rate, Rhythm, No Murmur Neurologic/Psychiatric: Alert, Oriented x3 Hospital Course Pt is a 79yoCM with a PMH of HTn and UTi who presented to the ER due to syncope. He was found to have severe sepsis due to UTI. It was found that he had an ESBL e coli and was discharged to swing bed for continued IV abx. Labs (last 24 hrs) Microbiology 09/03/19 MRSA Screen - Final, Complete MRSA not isolated 09/03/19 Urine Culture - Final, Complete Escherichia coli Enterococcus faecalis 09/03/19 Blood Culture - Preliminary, Resulted No growth Patient resulted labs reviewed. Pending Labs Imaging: Reviewed Imaging Report Discussion & Recommendations Discharge Planning: >30 minutes discharge planning Discharge Home Medications: Active Scripts Active Reported Preservision Areds 2 Softgel (Vit C/E/Zn/Coppr/Lutein/Zeaxan) 1 Each Capsule 1 Each PO BID Timolol Maleate 0.5% (Timolol Maleate) 5 Ml Drops 1 Drop OU BID LAST FILLED 04-24-2019 #1 DAY SUPPLY Propranolol HCl 20 Mg Tablet 20 Mg PO BID Gabapentin 400 Mg Capsule 400 Mg PO QID PRN Proair Hfa (Albuterol Sulfate) 1 Puff Puff 2 Puff IH Q4H PRN Zolpidem Tartrate 5 Mg Tablet 5 Mg PO HS Multivitamins with Minerals (Multivitamin with Minerals) 1 Each Tablet 1 Each PO DAILY Loratadine 10 Mg Tablet 10 Mg PO DAILY Latanoprost 2.5 Ml Drops 1 Drop OU HS LAST FILLED 04-24-2019 #03/08 DAY SUPPLY Dorzolamide 2% Eye Drop (Dorzolamide HCl/Pf) 10 Ml Drops 1 Drop OU BID Docusate Sodium 100 Mg Capsule 100 Mg PO BID PRN Atorvastatin Calcium 20 Mg Tablet 10 Mg PO HS Aspirin EC (Aspirin) 325 Mg Tablet.dr 325 Mg PO DAILY Albuterol Sulfate 2.5 Mg/0.5 Ml Vial.neb 2.5 Mg INH Q4H Hydrocodone-Acetamin 5-325 mg (Hydrocodone/Acetaminophen) 1 Each Tablet 1 Ea PO Q6H PRN Ondansetron HCl 4 Mg Tablet 4 Mg PO Q6H PRN Oxybutynin Chloride 5 Mg Tablet 5 Mg PO BID Fluconazole 200 Mg Tablet 200 Mg PO DAILY FILLED 08-28-2019 #7 DAY SUPPLY Prednisone 20 Mg Tab Mg PO DAILY TAKING TAPER DOSE 40MG DAILY X 5 DAYS THEN 20MG DAILY THEREAFTER Benazepril-Hctz 10-12.5 mg Tab (Benazepril/Hydrochlorothiazide) 1 Each Tablet 1 Ea PO DAILY Amox Tr-K Clv 500-125 mg Tab (Amoxicillin/Potassium Clav) 1 Each Tablet 1 Ea PO BID FILLED 08-31-2019 #20 Instructions to patient/family Please see electronic discharge instructions given to patient. Clinical Quality Measures DVT/VTE Risk/Contraindication: Risk Factor Score Per Nursin RFS Level Per Nursing on Admit: 4+=Very High JONO TIERNEY MD Sep 06, 2019 12:51
[2019-09-06] MEDS ORDERED: METHYLNALTREXONE 12 MG/0.6 ML (RELISTOR) VIAL SQ ONE (14:00)
--- NOTE | 2019-09-06 14:28 | Physical Therapy Daily Note ---
PT Daily Note-Current Subjective Patient reports nausea and abdominal discomfort. Agrees to PT. Pain Numeric Pain Scale: 5-Moderate Pain Location: Lower Location Body Site: Abdomen Pain Description: Pressure Mental Status Patient Orientation: Normal For Age Attachments: [place] Catheter, IV Transfers SCALE: Activities may be completed with or without assistive devices. 4-Nyxzuyrxbb-weixpkl completes the activity by him/herself with no assistance from a helper. 5-Set-up or Clean-up Assistance-helper sets up or cleans up; patient completes activity. [place] assists only prior to or following the activity. 4-Supervision or Touching Assistance-helper provides verbal cues and/or touching/steadying and/or contact guard assistance as patient completes activity. Assistance may be provided throughout the activity or intermittently. 3-Partial/Moderate Assistance-helper does LESS THAN HALF the effort. [place] lifts, holds or supports trunk or limbs, but provides less than half the effort. 2-Substantial/Maximal Assistance-helper does MORE THAN HALF the effort. [place] lifts or holds trunk or limbs and provides more than half the effort. 2-Mnwruopje-sjkodr does ALL the effort. Patient does none of the effort to complete the activity. Or, the assistance of 2 or more helpers is required for the patient to complete the activity. If activity was not attempted, code reason: 7-Patient Refused. 9-Not Applicable-not attempted and the patient did not perform the activity before the current illness, exacerbation or injury. 10-Not Attempted due to Environmental Limitations-(lack of equipment, weather restraints, etc.). 88-Not Attempted due to Medical Conditions or Safety Concerns. Sit to Stand (QC): 5 Gait Training Does the Patient Walk?: Yes Distance: 225' Walk 10 feet (QC): 5 Walk 50 ft with 2 Turns(QC): 5 Walk 150 ft (QC): 5 Gait Assistive Device: Walker 4 Wheeled NBOS/shuffle gait sequence Assessment Patient remains up in recliner and tolerated treatment well. PT to increase activity as tolerated by patient. PT Group Home Goals Tire Bladder Maker Goals PT Group Home Goals Time Frame: Sep 15, 2019 Roll Left & Right (QC): 6 Sit to Lying (QC): 6 Lying-Sitting on Side/Bed(QC): 6 Sit to Stand (QC): 6 Chair/Klo-ko-Srrly Xfer(QC): 6 Toilet Transfer (QC): 6 Car Transfer (QC): 6 Does the Patient Walk: Yes Walk 10 feet (QC): 6 Walk 50ft with 2 Turns (QC): 6 Walk 150 ft (QC): 6 PT Plan Treatment/Plan Treatment Plan: Continue Plan of Care Treatment Plan: Bed Mobility, Education, Functional Activity Jose, Functional Strength, Gait, Safety, Therapeutic Exercise, Transfers Treatment Duration: Sep 15, 2019 Frequency: 6 times per week Estimated Hrs Per Day: .25 hour per day Patient and/or Family Agrees t: Yes Time/GCodes Time In: 1350 Time Out: 1404 Total Billed Treatment Time: 14 Total Billed Treatment 1 visit FA 14 min HUY WHITE PT Sep 06, 2019 14:28
[2019-09-06] MEDS ORDERED: MEROPENEM 500 MG/SWFI 10 ML IV PUSH IV SCH ×2 (15:00)
[2019-09-07] MEDS ORDERED: PANTOPRAZOLE 40 MG (PROTONIX) TAB PO SCH (09:00)
[2019-09-08] MEDS ORDERED: TROUGH ORDER-PHARMACY XX NR (11:00)
== END 2019-09-06 14:52 | disposition swing bed (61) | DRG 872 ==
LOC: EDUNIT# 08:13 → ER FS 08:14 → ICU 13:25 → 4TH 09-04 10:30
PROVIDERS: ADMIT Family Medicine; ATTEND Family Medicine
DX: A41.9 Sepsis, unspecified organism (principal); N39.0 Urinary tract infection, site not specified; N17.9 Acute kidney failure, unspecified; E87.2 Acidosis; E87.3 Alkalosis; R65.20 Severe sepsis without septic shock; Z66 Do not resuscitate; I10 Essential (primary) hypertension; I25.10 Atherosclerotic heart disease of native coronary artery without angina pectoris; I95.9 Hypotension, unspecified; R06.03 Acute respiratory distress; J45.909 Unspecified asthma, uncomplicated; G62.9 Polyneuropathy, unspecified; E78.00 Pure hypercholesterolemia, unspecified; M19.91 Primary osteoarthritis, unspecified site; H40.9 Unspecified glaucoma; H54.61 Unqualified visual loss, right eye, normal vision left eye; E86.0 Dehydration; K59.00 Constipation, unspecified; R11.0 Nausea; Z87.891 Personal history of nicotine dependence; Z87.442 Personal history of urinary calculi; Z95.1 Presence of aortocoronary bypass graft
CPT/HCPCS: 36415; 71045; 80048; 80053; 80202; 81000; 82150; 82271; 82805; 82962; 83605; 83690; 83735; 83880; 84100; 84484; 85007; 85025; 85027; 85610; 85730; 86141; 87040; 87077; 87081; 87088; 87184; 87186; 93005; 99291

== ENCOUNTER 2019-09-06 14:00 | Inpatient (IN) | payer MEDICARE ==
[~2019-09-06] VITALS: Ht 180.3 cm; Wt 68.0 kg
[~2019-09-06 14:00] MED LIST changes: +ALB0.5V INH; +AMOX1TAB11 PO; +ASPI325T32 PO; +ATOR20TA66 PO; +BENA1TAB13 PO; +DOCU100C37 PO; +DORZ10DR27 OU; +FLUC200T5 PO; +GABA-490 PO; +HYDR-3812 PO; +LATA2.5D5 OU; +LORA10TA7 PO; +MULT-166 PO; +ONDA-105 PO; +OXYB5TAB13 PO; +PRD20T PO; +PROP20TA5 PO; +RT-ALBUINH IH; +TIMO5DRO5 OU; +VIT1CAPS44 PO; +VIT1CAPS5 PO; +ZOLP5TAB7 PO
--- NOTE | 2019-09-06 15:03 | NUR ---
NOEMI COBURN admitted to swing bed status to room 411 , with an admitting diagnosis of SWB, severe sepsis, UTI, hypoxia ELIJAH , on 09/06/19 from acute inpatient status. Therapy to evaluate patient for activity needs. NOEMI COBURN and/or family introduced to surroundings, call light, bed controls, phone, TV, temperature control, lights, meal times, smoking policy, visitor policy, side rail policy, bathrooms, and showers. Patient rights given to patient in the handbook. NOEMI COBURN and/or family member verbalized understanding that [facility] is not responsible for the loss or damage to any personal effects or valuables that are kept in the patients possession during their hospitalization. NOEMI COBURN and/or family verbalizes understanding of the Interdisciplinary Patient Education. Patient and/or family were informed about the Rapid Response Team and its purpose. Call light with in reach and patient demonstrates understanding of how to use. NOEMI COBURN reports no further needs at this time.
[2019-09-06] MEDS ORDERED: ACETAMINOPHEN 500 MG TAB (TYLENOL) PO PRN (15:15)
[2019-09-06] MEDS ORDERED: BENZONATATE 100 MG (TESSALON) CAPSULE PO PRN (15:15)
[2019-09-06] MEDS ORDERED: CATHETER FLUSH 10 ML SYR IV PRN (15:15)
[2019-09-06] MEDS ORDERED: MILK OF MAGNESIA 400 MG/5 ML 30 ML UDC PO PRN (15:15)
[2019-09-06] MEDS ORDERED: ACETAMINOPHEN 325 MG TABLET PO PRN (15:15)
[2019-09-06] MEDS ORDERED: ANTACID SUSP 30 ML UDC (MYLANTA) PO PRN (15:15)
[2019-09-06 15:21] VITALS: BP 138/81
--- NOTE | 2019-09-06 15:33 | NUR ---
Swing Bed Note: Qualifies for Swing Bed for continued need of short term Physical et Occupational therapies (Pneumonia, Severe Sepsis) with ultimate goal to return home at his prior level of function of independent functioning with ADLS. Prior to this admission he was living in his home by himself et was receiving weekly home health care visits from [facility].
--- NOTE | 2019-09-06 15:34 | NUR ---
Admission Drug Regimen Review: Date: 09/06/19 Time: 153 Review Completed, No Issues found
[2019-09-06] MEDS: MEROPENEM 500 MG in WATER (STERILE) FOR INJECTION 10 ML IV SCH ×2 (16:27→21:14)
[2019-09-06 17:05] VITALS: BP 147/69
[2019-09-06] MEDS: LACTOBACILLUS ACIDOPHILUS (PROBIOTIC) CAPSULE PO SCH (18:01)
[2019-09-06] MEDS: NYSTATIN ORAL SUSP 5 ML UDC PO SCH (18:01)
[2019-09-06] MEDS: ONDANSETRON 4 MG/2 ML (SDV) Z0FRAN IV PRN (18:08)
--- OUTSIDE RECORDS SUMMARY | 2019-09-06 18:11 | XMS REPORT | Continuity of Care Document ---
Author Organization Unknown Address Unknown Phone Unavailable Allergies Active Description Code Type Severity Reaction Onset Reported/Identified Relationship to Patient Clinical Status Yes ERYTHROMYCIN ETHYLSUCCINATE 25752 DRUG INGREDI N/A Hives 12/02/2017 Yes SULFAMETHOXAZOLE-TRIMETHOPRIM 18921 DRUG N/A Hives~Flushed 12/02/2017 Yes EES-400 EES-400 Unknown N/A 05/09/2018 Yes No Known Drug Allergies [id number] Drug Allergy Unknown N/A 05/09/2018 Yes sulfamethoxazole [id number] Drug Allergy Unknown N/A 05/09/2018 Yes trimethoprim [id number] Drug Allergy Unknown N/A 05/09/2018 Yes SULFA [...] PRESENCE OF AORTOCORONARY BYPASS GRAFT 05/10/2018 JACEY RIVEAR I10 Essential (primary) hypertension 05/10/2018 JACEY RIVERA [...] D Ot J18.9 PNEUMONIA, UNSPECIFIED ORGANISM 02/06/2019 KANDSILENBERGER DO SILVESTRE D Ot J18.9 PNEUMONIA, UNSPECIFIED ORGANISM 02/19/2019 KANDISLENBERGER DO SILVESTRE D Ot J18.9 PNEUMONIA, UNSPECIFIED ORGANISM 03/02/2019 KANDISLENBERGER DO SILVESTRE D Ot J18.9 PNEUMONIA, UNSPECIFIED ORGANISM 03/02/2019 KNADISLENBERGER DO SILVESTRE D Ot J18.9 PNEUMONIA, UNSPECIFIED ORGANISM 03/27/2019 ADIN HANSEN DOY D Ot J18.9 PNEUMONIA, UNSPECIFIED ORGANISM 03/27/2019 JADE DO SILVESTRE D Ot J18.9 PNEUMONIA, UNSPECIFIED ORGANISM 03/29/2019 KELLENBERGER DO, SILVESTRE D Ot J18.9 PNEUMONIA, UNSPECIFIED ORGANISM 03/29/2019 KELLENBERGER DO, SILVESTRE D Ot J18.9 PNEUMONIA, UNSPECIFIED ORGANISM 03/30/2019 DELROY FRANKLIN N DEVIL DOG Ot J20. 9 ACUTE BRONCHITIS, UNSPECIFIED 03/30/2019 NOEMI, DELROY N DEVIL DOG Ot Z98.890 OTHER SPECIFIED POSTPROCEDURAL STATES 04/18/2019 NOEMI, DELROY N DEVIL DOG Ot J20. 9 ACUTE BRONCHITIS, UNSPECIFIED 04/18/2019 NOEMI, DELROY N DEVIL DOG Ot Z98.890 OTHER SPECIFIED POSTPROCEDURAL STATES 04/27/2019 NOEMI, DELROY N DEVIL DOG Ot J20. 9 ACUTE BRONCHITIS, UNSPECIFIED 04/27/2019 NOEMI, DELROY N DEVIL DOG Ot Z98.890 OTHER SPECIFIED POSTPROCEDURAL STATES 09/06/2019 NIALL RICHARDS, JONO Bravo Ot A41. 9 SEPSIS, UNSPECIFIED ORGANISM 09/06/2019 NIALL RICHARDS, JONO Bravo Ot E78. 00 PURE HYPERCHOLESTEROLEMIA, UNSPECIFIED 09/06/2019 NIALL RICHARDS, JONO Bravo Ot E86. 0 DEHYDRATION 09/06/2019 JONO TIERNEY MD Ot E87. 2 ACIDOSIS 09/06/2019 JONO TIERNEY MD Ot E87. 3 ALKALOSIS 09/06/2019 NIALL RICHARDS, JONO Bravo Ot G62. 9 POLYNEUROPATHY, UNSPECIFIED 09/06/2019 JONO TIERNEY MD Ot H40. 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 10 ATHSCL HEART DISEASE OF [place] CORONARY 09/06/2019 NIALL RICHARDS, JONO Bravo Ot I95. 9 HYPOTENSION, UNSPECIFIED 09/06/2019 JONO TIERNEY MD Ot J30. 2 OTHER SEASONAL ALLERGIC RHINITIS 09/06/2019 NIALL RICHARDS, JONO Bravo Ot J45.909 UNSPECIFIED ASTHMA, UNCOMPLICATED 09/06/2019 NIALL RICHARDS, JONO Bravo Ot K59. 00 CONSTIPATION, UNSPECIFIED 09/06/2019 JONO TIERNEY MD Ot M19. 91 PRIMARY OSTEOARTHRITIS, UNSPECIFIED SITE 09/06/2019 JONO TIERNEY MD Ot N17. 9 ACUTE KIDNEY FAILURE, UNSPECIFIED 09/06/2019 JONO TIERNEY MD Ot N39. 0 URINARY TRACT INFECTION, SITE NOT SPECIF 09/06/2019 JONO TIERNEY MD Ot R06. 03 ACUTE RESPIRATORY DISTRESS 09/06/2019 JONO TIERNEY MD Ot R11. 0 NAUSEA 09/06/2019 JONO TIERNEY MD Ot R65. 20 SEVERE SEPSIS WITHOUT SEPTIC SHOCK 09/06/2019 JONO TIERNEY MD Ot Z66 DO NOT RESUSCITATE 09/06/2019 JONO TIERNEY MD Ot Z87.442 PERSONAL HISTORY OF URINARY CALCULI 09/06/2019 JONO TIERNEY MD Ot Z87.891 PERSONAL HISTORY OF NICOTINE DEPENDENCE 09/06/2019 JONO TIERNEY MD Ot Z95. 1 PRESENCE OF AORTOCORONARY BYPASS GRAFT Procedures Code Description Performed By Per formed On WHC990 SHARON SING COMMUNICATION 01/26/2018 [id number] BA SIC METABOLIC PANEL 02/01/2018 TUR965 NOT AGUSTIN PHYSICIAN 02/01/2018 GJX428 HEI GHT AND WEIGHT 02/01/2018 REW262 VIT AL SIGNS 02/01/2018 ICQ611 ALTAF CE SEQUENTIAL COMPRESSION DEVICE 02/01/2018 ZGZ749 JESSA NTAIN SEQUENTIAL COMPRESSION DEVICE 02/01/2018 BXS840 JOE LY WARMING BLANKET 02/01/2018 JPZ7219 BA SIC METABOLIC PANEL 02/01/[address] ONE ANALYSIS URINARY 02/01/2018 MSX681 SHARON SING COMMUNICATION 02/01/2018 DXR966 CRUZ SURE BLOOD PRESSURE 02/01/2018 ZCW655 VIT AL SIGNS 02/01/2018 MUX823 CON TINUOUS PULSE OXIMETRY 02/01/2018 YGH432 NOT AGUSTIN PHYSICIAN 02/01/2018 MXJ595 SHARON SING COMMUNICATION 02/01/2018 ZXL954 [facility] OXYGEN ORDERS/INSTRUCTIONS 02/01/2018 GIK838 JEREMI DDER SCAN 02/01/2018 VUR572 STR AIGHT CATH 02/01/2018 OWV927 JOE LY WARMING BLANKET 02/01/2018 KGX897 GLU COSE POC 02/01/2018 WCO103 NOT AGUSTIN PHYSICIAN 02/01/2018 UCB482 KIRIT GHT RESTRICTIONS 02/01/2018 GTN239 PAT IENT MAY SHOWER 02/01/2018 NUR6 ACTIV ITY ORDER 02/01/2018 LFY231 DIS CHARGE FOLLOW UP 02/01/2018 UHX329 WOU ND CARE INSTRUCTIONS FOR NURSING (SPECIFY) 02/01/2018 ADT8 DISCH ARGE PATIENT 02/01/2018 DIET24 DIET 02/01/2018 [id number] AD MICHAELS DIET TOLERATED NURSING: PLACE NEW DIET ORDER WHEN PATIENT IS READY TO ADVANCE DIET 02/01/2018 CIS505 ACT IVITY TOLERATED 02/01/2018 LVE484 VIT AL SIGNS 02/01/2018 QZF4395 IR TUNNELED DIALYSIS CATHETER REMOVAL 02/20/2018 TUU598 ACT IVITY TOLERATED 02/20/2018 SKJ341 SHARON SING COMMUNICATION 02/20/2018 IHS514 VIT AL SIGNS 02/20/2018 MTC192 SHOWER 02/20/2018 QNX290 SHARON SING COMMUNICATION 02/20/2018 XQN620 DIS CHARGE INSTRUCTIONS 02/20/2018 YTB564 NOT AGUSTIN SERVICE 02/20/2018 EKS561 DIS CHARGE FOLLOW UP 02/20/2018 ADT8 DISCH ARGE PATIENT 02/20/2018 IVT10 DISC ONTINUE IV 02/20/2018 ADT12 PLAC E PATIENT IN OBSERVATION 05/09/2018 COD2 FULL CODE 05/09/2018 DIET24 DIET 05/09/2018 GZP1781 BA SIC METABOLIC PANEL 05/09/2018 LIQ0069 CO MPLETE BLOOD COUNT 05/09/2018 EAL6544 LI PID PANEL 05/09/2018 IMQ0728 TR OPONIN 05/09/2018 VML2007 CU LTURE, URINE 05/09/2018 XDZ885 ACT IVITY TOLERATED 05/09/2018 FLX586 NOT AGUSTIN PHYSICIAN 05/09/2018 RWI239 VIT AL SIGNS 05/09/2018 SYW216 ALTAF CE SEQUENTIAL COMPRESSION DEVICE 05/09/2018 WVN338 JESSA NTAIN SEQUENTIAL COMPRESSION DEVICE 05/09/2018 TJG668 TEL EMETRY MONITORING - CLASS II 05/09/2018 GFU404 JEREMI DDER SCANNING ALGORITHM 05/09/2018 EGW8414 MA GNESIUM 05/09/2018 MTX7641 TR OPONIN 05/09/2018 SXF7040 CU LTURE, BLOOD 05/09/2018 RNV3678 CU LTURE, BLOOD 05/09/2018 HYR5260 CU LTURE, URINE 05/09/2018 TSE3571 TR OPONIN 05/09/2018 HID470 MARK LY WEIGHTS 05/10/2018 TGN8840 BA SIC METABOLIC PANEL 05/10/2018 OYV3841 CO MPLETE BLOOD COUNT 05/10/2018 SIX9670 CB C AND DIFF (MANUAL DIFF IF NECESSARY) 05/10/2018 YYL7889 LI PID PANEL 05/10/2018 IFB7041 TR OPONIN 05/10/2018 UKN5419 UR INALYSIS (INCLUDES MICROSCOPIC REVIEW, IF INDICATED) 05/10/2018 GZX9911 XR CHEST 2 VIEWS (PA AND LATERAL) 05/10/2018 YSI0203 XR CHEST 2 VIEWS (PA AND LATERAL) 05/10/2018 BDU0343 UR INALYSIS (INCLUDES MICROSCOPIC REVIEW, IF INDICATED) 05/10/2018 YAY3450 UR INALYSIS MICROSCOPIC ONLY 05/10/2018 DIET24 DIET 05/10/2018 DXX429 ACT IVITY TOLERATED 05/10/2018 DPC374 FOL LOW UP PRIMARY PHYSICIAN 05/10/2018 ODC552 DIS CHARGE INSTRUCTIONS 05/10/2018 ADT8 DISCH ARGE [...] culture - 05/09/18 15:20 Bacterial urine culture [id number] NRG COLONY COUNT 20,000 CFU/ML NRG FTX;REPORTABLE SUSCEPTIBILITY REPORTED 4-05-26, 130 5 NRG FREE TEXT ENTRY 2 [...] NRG Manual blood basophils/100 leukocytes 1 % NRG Blood erythrocyte morphology finding identification NORMAL NRG Comprehensive metabolic panel - 09/03/19 08:26 Serum [...] G Measurement of body temperature 35.9 NRG Bacterial blood culture - 09/03/19 09:15 Bacterial blood culture NG NRG Bacterial blood culture - 09/03/19 09:20 Bacterial blood culture NG NRG Complete urinalysis with reflex to cultu [...] with reflex to culture CULTURE PENDING NRG Bacterial urine culture - 09/03/19 10:00 Bacterial urine culture [id number] NRG COLONY COUNT >100,000/ML NRG FTX;REPORTABLE PENICILLINS, CEPHALOSPORINS, AND NRG FREE TEXT ENTRY 2 AZTREONAM. NRG FREE TEXT ENTRY 3 RESISTANT ORGANISM/ CONTACT PREC AUTIONS. NRG SUSCEPTIBILITY SUSCEPTIBILITY REPORTED 09/04 09:20 NRG MRSA SCREEN MULTI DRUG RESISTANT ORGANISM NRG RAPID ID EXTENDED SPECTRUM BETA LACTAMASE NRG ID CONFIRMATION PRODUCING STRAIN, RESISTANT TO NRG Dirithromycin susceptibility test by dis k diffusion - 09/03/19 10:00 Gentamicin susceptibility test by minimum inhibitory c [...] and clavulanate potassium susc JAIMIE R NRG Serum or plasma lactate measurement (mol es/volume) - 09/03/19 10:45 Serum or plasma lactate measurement (moles/volume) 1.85 mmol/L 0.50-2.00 Methicillin resistant Staphylococcus aur eus (MRSA) screening culture - 09/03/19 15:00 Methicillin resistant Staphylococcus aureus (MRSA) scr eening culture NEG NRG Capillary blood glucose measurement by g lucometer (mass/volume) - 09/03/19 19:55 Capillary blood glucose measurement by glucometer (mas s/volume) 79 mg/dL 70-110 Whole blood basic metabolic panel - 08/08 09/26 03:15 Serum or plasma sodium measurement (moles/volume) 139 mmol/L 135-145 Serum or plasma potassium measurement (moles/volume) 3.5 mmol/L 3.6-5.0 Serum or plasma chloride measurement (moles/volume) 107 mmol/L 98-107 Carbon dioxide 14 mmol/L 21-32 Serum or plasma anion gap determination (moles/volume) 18 mmol/L 5-14 Serum or plasma urea nitrogen measurement (mass/volume ) 27 mg/dL 7-18 Serum or plasma creatinine measurement (mass/volume) 1.30 mg/dL 0.60-1.30 Serum or plasma urea nitrogen/creatinine mass ratio 21 NRG Serum or plasma creatinine measurement w ith calculation of estimated glomerular filtration rate 53 NRG Serum or plasma glucose measurement (mass/volume) 96 mg/dL 70-105 Serum or plasma calcium measurement (mass/volume) 7.9 mg/dL 8.5-10.1 Serum or plasma phosphate measurement (m ass/volume) - 09/04/19 03:15 Serum or plasma phosphate measurement (mass/volume) 3.1 mg/dL 2.3-4.7 Magnesium - 09/04/19 03:15 Magnesium 1.9 mg/dL 1.6-2.4 Complete blood count (CBC) with automate d white blood cell (WBC) differential - 09/04/19 03:15 Blood leukocytes automated count (number/volume) 16.3 10*3/uL 4.3-11.0 Blood erythrocytes automated count (number/volume) 3.93 10*6/uL 4.35-5.85 Venous blood hemoglobin measurement (mass/volume) 11.9 g/dL 13.3-17.7 Blood hematocrit (volume fraction) 37 % 40-54 Automated erythrocyte mean corpuscular volume 93 [ foz_us] 80-99 Automated erythrocyte mean corpuscular h emoglobin (mass per erythrocyte) 30 pg 25-34 Automated erythrocyte mean corpuscular h emoglobin concentration measurement (mass/volume) 32 g/dL 32-36 Automated erythrocyte distribution width ratio 17. 7 % 10.0- 14.5 Automated blood platelet count (count/volume) 359 10*3/uL 130-400 Automated blood platelet mean volume measurement 9.7 [foz_us] 7.4-10.4 Automated blood neutrophils/100 leukocytes 84 % 42-75 Automated blood lymphocytes/100 leukocytes 5 % 12-44 Blood monocytes/100 leukocytes 10 % 0-12 Automated blood eosinophils/100 leukocytes 1 % 0-10 Automated blood basophils/100 leukocytes 0 % 0-10 Blood neutrophils automated count (number/volume) 13.7 10*3 1.8-7.8 Blood lymphocytes automated count (number/volume) 0.8 10*3 1.0-4.0 Blood monocytes automated count (number/volume) 1. 6 10*3 0.0-1.0 Automated eosinophil count 0.2 10*3/uL 0 .0-0.3 Automated blood basophil count (count/volume) 0.0 10*3/uL 0.0-0.1 Serum or plasma amylase measurement (enz ymatic activity/volume) - 09/04/19 03:15 Serum or plasma amylase measurement (enzymatic activit y/volume) 25 U/L 25-125 Lipase - 09/04/19 03:15 Lipase 42 U/L 8-78 Blood lactic acid measurement (moles/vol ume) - 09/04/19 05:45 Blood lactic acid measurement (moles/volume) 0.96 mmol/L 0.50-2.00 Occult blood panel - gastric fluid - 09:00 Gastric fluid gastrointestinal hemoglobin detection POSITIVE NEGATIVE Complete blood count (CBC) with automate d white blood cell (WBC) differential - 09/05/19 05:41 Blood leukocytes automated count (number/volume) 8.5 10*3/uL 4.3-11.0 Blood erythrocytes automated count (number/volume) 3.59 10*6/uL 4.35-5.85 Venous blood hemoglobin measurement (mass/volume) 10.8 g/dL 13.3-17.7 Blood hematocrit (volume fraction) 33 % 40-54 Automated erythrocyte mean corpuscular volume 93 [ foz_us] 80-99 Automated erythrocyte mean corpuscular h emoglobin (mass per erythrocyte) 30 pg 25-34 Automated erythrocyte mean corpuscular h emoglobin concentration measurement (mass/volume) 33 g/dL 32-36 Automated erythrocyte distribution width ratio 17. 9 % 10.0- 14.5 Automated blood platelet count (count/volume) 349 10*3/uL 130-400 Automated blood platelet mean volume measurement 8.8 [foz_us] 7.4-10.4 Automated blood neutrophils/100 leukocytes 75 % 42-75 Automated blood lymphocytes/100 leukocytes 9 % 12-44 Blood monocytes/100 leukocytes 11 % 0-12 Automated blood eosinophils/100 leukocytes 6 % 0-10 Automated blood basophils/100 leukocytes 0 % 0-10 Blood neutrophils automated count (number/volume) 6.3 10*3 1.8-7.8 Blood lymphocytes automated count (number/volume) 0.7 10*3 1.0-4.0 Blood monocytes automated count (number/volume) 0. 9 10*3 0.0-1.0 Automated eosinophil count 0.5 10*3/uL 0 .0-0.3 Automated blood basophil count (count/volume) 0.0 10*3/uL 0.0-0.1 Whole blood basic metabolic panel - 08/08 10/27 05:41 Serum or plasma sodium measurement (moles/volume) 137 mmol/L 135-145 Serum or plasma potassium measurement (moles/volume) 3.6 mmol/L 3.6-5.0 Serum or plasma chloride measurement (moles/volume) 109 mmol/L 98-107 Carbon dioxide 15 mmol/L 21-32 Serum or plasma anion gap determination (moles/volume) 13 mmol/L 5-14 Serum or plasma urea nitrogen measurement (mass/volume ) 15 mg/dL 7-18 Serum or plasma creatinine measurement (mass/volume) 0.89 mg/dL 0.60-1.30 Serum or plasma urea nitrogen/creatinine mass ratio 17 NRG Serum or plasma creatinine measurement w ith calculation of estimated glomerular filtration rate > NRG Serum or plasma glucose measurement (mass/volume) 84 mg/dL 70-105 Serum or plasma calcium measurement (mass/volume) 7.8 mg/dL 8.5-10.1 Complete blood count (CBC) with automate d white blood cell (WBC) differential - 09/06/19 05:29 Blood leukocytes automated count (number/volume) 10.6 10*3/uL 4.3-11.0 Blood erythrocytes automated count (number/volume) 4.07 10*6/uL 4.35-5.85 Venous blood hemoglobin measurement (mass/volume) 12.3 g/dL 13.3-17.7 Blood hematocrit (volume fraction) 37 % 40-54 Automated erythrocyte mean corpuscular volume 91 [ foz_us] 80-99 Automated erythrocyte mean corpuscular h emoglobin (mass per erythrocyte) 30 pg 25-34 Automated erythrocyte mean corpuscular h emoglobin concentration measurement (mass/volume) 33 g/dL 32-36 Automated erythrocyte distribution width ratio 17. 3 % 10.0- 14.5 Automated blood platelet count (count/volume) 366 10*3/uL 130-400 Automated blood platelet mean volume measurement 8.8 [foz_us] 7.4-10.4 Automated blood neutrophils/100 leukocytes 74 % 42-75 Automated blood lymphocytes/100 leukocytes 9 % 12-44 Blood monocytes/100 leukocytes 14 % 0-12 Automated blood eosinophils/100 leukocytes 3 % 0-10 Automated blood basophils/100 leukocytes 0 % 0-10 Blood neutrophils automated count (number/volume) 7.9 10*3 1.8-7.8 Blood lymphocytes automated count (number/volume) 0.9 10*3 1.0-4.0 Blood monocytes automated count (number/volume) 1. 5 10*3 0.0-1.0 Automated eosinophil count 0.3 10*3/uL 0 .0-0.3 Automated blood basophil count (count/volume) 0.0 10*3/uL 0.0-0.1 Whole blood basic metabolic panel - 08/09 0 05:29 Serum or plasma sodium measurement (moles/volume) 136 mmol/L 135-145 Serum or plasma potassium measurement (moles/volume) 3.6 mmol/L 3.6-5.0 Serum or plasma chloride measurement (moles/volume) 105 mmol/L 98-107 Carbon dioxide 19 mmol/L 21-32 Serum or plasma anion gap determination (moles/volume) 12 mmol/L 5-14 Serum or plasma urea nitrogen measurement (mass/volume ) 11 mg/dL 7-18 Serum or plasma creatinine measurement (mass/volume) 0.83 mg/dL 0.60-1.30 Serum or plasma urea nitrogen/creatinine mass ratio 13 NRG Serum or plasma creatinine measurement w ith calculation of estimated glomerular filtration rate > NRG Serum or plasma glucose measurement (mass/volume) 104 mg/dL 70-105 Serum or plasma calcium measurement (mass/volume) 7.9 mg/dL 8.5-10.1 Encounters ACCT No. Visit Date/Time Discharge Status Pt. Type Provider Facility Loc./Unit Complaint [id number] 05/09/2018 19:26:00 18:20:00 DIS Outpatient JACEY RIVERA [facility] INT Urinary Tract Infection [id number] 02/20/2018 10:46:12 23:59:00 DIS Outpatient JANIYA WHEELER [facility] IR End stage renal disease [id number] 02/01/2018 07:48:00 14:03:00 DIS Outpatient JUN REYES [facility] MAIN OR LEFT KIDNEY STONE N20.0 [id number] 02/01/2018 10:10:50 Document Registration [id number] 03/02/2019 12:45:00 23:59:59 CLS Outpatient DELROY FRANKLIN APRN [facility] FS J209 [id number] 01/16/2019 17:57:00 23:59:59 CLS Outpatient SILVESTRE HANSEN DO [facility] RAD FS J189 [id number] 01/16/2019 17:31:00 23:59:59 CLS Outpatient SILVESTRE HANSEN DO [facility] FS POSS PNUEMONIA [id number] 05/09/2018 14:13:00 18:14:00 DIS Emergency IVAN CLARK MD [facility] ER FS HIGH BLOOD PRESSURE [id number] 09/06/2019 14:00:00 P EN Preadmit JONO TIERNEY MD [facility]B [id number] 09/03/2019 13:25:[address] Inpatient JONO TIERNEY MD [facility] 4TH SEVERE SEPSIS;PNA;ELIJAH;ACUTE RESP FAILURE;HYPOXIA;-
[2019-09-06] MEDS: LATANOPROST 0.005% (XALATAN) OPHTH SOLN 2.5 ML OU SCH (21:14)
[2019-09-06] MEDS: traZODone 50 MG (DESYREL) TAB PO SCH (21:15)
[2019-09-07] MEDS: NYSTATIN ORAL SUSP 5 ML UDC PO SCH ×4 (00:12→18:24)
[2019-09-07] MEDS: ZOLPIDEM 5 MG (AMBIEN) TAB PO PRN (00:12)
[2019-09-07] MEDS: MEROPENEM 500 MG in WATER (STERILE) FOR INJECTION 10 ML IV SCH ×4 (03:14→20:20)
[2019-09-07 06:00] VITALS: BP 127/70
[2019-09-07] MEDS: ENOXAPARIN 40 MG/0.4 ML (LOVENOX) SYR SC SCH (06:38)
[2019-09-07] MEDS: PANTOPRAZOLE 40 MG (PROTONIX) TAB PO SCH (08:26)
[2019-09-07] MEDS: LACTOBACILLUS ACIDOPHILUS (PROBIOTIC) CAPSULE PO SCH ×3 (08:26→18:24)
--- NOTE | 2019-09-07 10:00 | Physical Therapy Evaluation ---
PT Evaluation-General Medical Diagnosis Admission Date Sep 06, 2019 at 15:13 Medical Diagnosis: ESBL E coli/UTI Onset Date: Sep 06, 2019 Therapy Diagnosis Therapy Diagnosis: generalized weakness/debility Height/Weight Height (Feet): 5 Height (Inches): 11.00 Weight (Pounds): 150 Precautions Precautions/Isolations: Contact Isolation, Fall Prevention, Standard Precautions Referral Physician: Marlee Reason for Referral: Evaluation/Treatment Medical History Pertinent Medical History: CABG, CAD, HTN, Renal Insufficiency Current History SWB status Reviewed History: Yes Social History Home: Single Level Current Living Status: Alone Entry Into Home: Ramp Prior Prior Level of Function SCALE: Activities may be completed with or without assistive devices. 0-Wjbrdwedex-tuplhvv completes the activity by him/herself with no assistance from a helper. 5-Set-up or Clean-up Assistance-helper sets up or cleans up; patient completes activity. [place] assists only prior to or following the activity. 4-Supervision or Touching Assistance-helper provides verbal cues and/or touching/steadying and/or contact guard assistance as patient completes activity. Assistance may be provided throughout the activity or intermittently. 3-Partial/Moderate Assistance-helper does LESS THAN HALF the effort. [place] lifts, holds or supports trunk or limbs, but provides less than half the effort. 2-Substantial/Maximal Assistance-helper does MORE THAN HALF the effort. [place] lifts or holds trunk or limbs and provides more than half the effort. 9-Kggyefbfy-vphgkf does ALL the effort. Patient does none of the effort to complete the activity. Or, the assistance of 2 or more helpers is required for the patient to complete the activity. If activity was not attempted, code reason: 7-Patient Refused. 9-Not Applicable-not attempted and the patient did not perform the activity before the current illness, exacerbation or injury. 10-Not Attempted due to Environmental Limitations-(lack of equipment, weather restraints, etc.). 88-Not Attempted due to Medical Conditions or Safety Concerns. Bed Mobility: 6 Transfers (B,C,W/C): 6 Gait: 6 Stairs: 9 Indoor Mobility (Ambulation): Independent Prior Devices Use: Walker (4WW) PT Evaluation-Current Subjective Patient agrees to PT. Pain Numeric Pain Scale: 5-Moderate Pain Location: Lower Location Body Site: Abdomen Pain Description: Pressure Objective Patient Orientation: Normal For Age Attachments: [place] Catheter ROM/Strength ROM Lower Extremities bilateral LE WFL Strength Lower Extremities 3+/5 grossly bilateral LE Integumentary/Posture Integumentary refer to nursing notes Bladder Incontinence: [place] Cath Posture slightly kyphotic Neuromuscular (Tone, Coordination, Reflexes) grossly intact Sensory Vision: Functional Hearing: Functional Sensation Right Lower Extremit: Intact Sensation Left Lower Extremity: Intact Transfers Roll Left to Right (QC): 5 Sit to Lying (QC): 5 Lying to Sitting/Side of Bed(Q: 5 Sit to Stand (QC): 4 Chair/Eul-yh-Ccffm Xfer(QC): 4 Toilet Transfer (QC): 4 Car Transfer (QC): 4 Gait Does the Patient Walk?: Yes Mode of Locomotion: Walk Anticipated Mode of Locomotion: Walk Walk 10 feet (QC): 5 Walk 50 ft with 2 Turns(QC): 5 Walk 150 ft (QC): 5 Walking 10ft/uneven surface-QC: 5 Distance: 275' Gait Assistive Device: Walker 4 Wheeled Comments/Gait Description NBOS/shuffle gait sequence Wheelchair Training Does the Pt Use a Wheelchair?: No Wheel 50 ft with 2 turns (QC): 9 Wheel 150 ft (QC): 9 Stairs 1 Step (curb) (QC): 88 4 Steps (QC): 88 12 Steps (QC): 9 Balance Sitting Static: Normal Sitting Dynamic: Normal Standing Static: Normal Standing Dynamic: Normal Picking up an Object (QC): 3 Treatment Ambulate with 4WW x 275' SBA with NBOS, shuffle gait sequence. seated bilateral LE exercises LAQ, AP, hip flexion 15 reps x 2 Assessment/Needs 79 y.o. male, will benefit from skilled PT to address functional strength and mobility to improve current LOF to safely return to home or care facility at maximum LOF. Rehab Potential: Fair PT Padder Cushion Goals Mcfp Goals PT Padder Cushion Goals Time Frame: Sep 22, 2019 Roll Left & Right (QC): 6 Sit to Lying (QC): 6 Lying-Sitting on Side/Bed(QC): 6 Sit to Stand (QC): 6 Chair/Hrs-tx-Edxcd Xfer(QC): 6 Toilet Transfer (QC): 6 Car Transfer (QC): 6 Does the Patient Walk: Yes Walk 10 feet (QC): 6 Walk 50ft with 2 Turns (QC): 6 Walk 150 ft (QC): 6 Walking 10ft on Uneven Surface: 6 1 Step (curb) (QC): 6 4 Steps (QC): 5 12 Steps (QC): 9 Picking up an Object (QC): 6 Does the Pt use WC or Scooter?: No Wheel 50 feet with 2 turns (QC: 9 Wheel 150 feet: 9 PT Plan Problem List Problem List: Activity Tolerance, Gait Treatment/Plan Treatment Plan: Continue Plan of Care Treatment Plan: Bed Mobility, Education, Functional Activity Jose, Functional Strength, Gait, Safety, Therapeutic Exercise, Transfers Treatment Duration: Sep 22, 2019 Frequency: 6 times per week Estimated Hrs Per Day: .25 hour per day Patient and/or Family Agrees t: Yes Time/GCodes Time In: 820 Time Out: 843 Total Billed Treatment Time: 23 Total Billed Treatment 1 visit EVModC 8 min FA 15 min HUY WHITE PT Sep 07, 2019 10:00
[2019-09-07] MEDS: polyethylene glycoL POWDER 17 GM (MIRALAX) PACK PO PRN (12:22)
[2019-09-07] MEDS ORDERED: FLEET ENEMA ADULT 1 EA BTL PR PRN (12:30)
[2019-09-07] MEDS ORDERED: SCOPOLAMINE 1.5 MG (TRANSDERM-SCOP) PATCH TD NR (12:30)
[2019-09-07] MEDS: BISACODYL 10 MG SUPP (DULCOLAX) PR PRN (12:38)
--- NOTE | 2019-09-07 12:52 | Progress Note - Hospitalist ---
Subjective HPI/CC On Admission Date Seen by Provider: Sep 07, 2019 Time Seen by Provider: 12:50 Subjective/Events-last exam Pt reports feeling better today. less nauseated. Still has not had a BM. Objective Exam Vital Signs Vital Signs Date Time Temp Pulse Resp B/P (MAP) Pulse Ox O2 Delivery O2 Flow Rate FiO2 09/07/19 06:00 36.4 105 16 127/70 (89) 94 Room Air 09/06/19 15:21 3.00 Capillary Refill : Less Than 3 Seconds General Appearance: No Apparent Distress, WD/WN Respiratory: Lungs Clear, No Respiratory Distress Cardiovascular: Regular Rate, Rhythm, No Murmur Neurologic/Psychiatric: Alert, Oriented x3 Results/Procedures Lab Patient resulted labs reviewed. Assessment/Plan Assessment and Plan Assess & Plan/Chief Complaint Severe Sepsis UTI Continue Merrem as is ESBL e coli Continues to improve Constipation Discussed need to have BM and how it would likely help with nausea Bowel regimen ordered Received Relistor yesterday without relief ELIJAH- resolved CAD s/p CABG HTN No acute management needs Chronic pain Continue home meds, oxycodone DVT ppx: Lovenox Clinical Quality Measures DVT/VTE Risk/Contraindication: Risk Factor Score Per Nursin JONO TIERNEY MD Sep 07, 2019 12:52
--- NOTE | 2019-09-07 12:55 | Occupational Therapy Eval ---
OT Evaluation-General/PLF Medical Diagnosis Admission Date Sep 06, 2019 at 15:13 Medical Diagnosis: ESBL E coli/UTI Onset Date: Sep 06, 2019 Therapy Diagnosis Therapy Diagnosis: decreased self care skills Height/Weight Height (Feet): 5 Height (Inches): 11.00 Weight (Pounds): 150 Precautions Precautions/Isolations: Contact Isolation, Fall Prevention, Standard Precautions Referral Physician: Marlee Medical History Pertinent Medical History: CABG, CAD, HTN, Renal Insufficiency Additional Medical History high cholesterol, neuropathy, kidney stones, renal failure, abdominal hernia, arthritis, glaucoma Social History Home: Single Level Current Living Status: Alone Entry Into Home: Ramp ADL-Prior Level of Function SCALE: Activities may be completed with or without assistive devices. 3-Gakxtxirbj-lftdjyw completes the activity by him/herself with no assistance from a helper. 5-Set-up or Clean-up Assistance-helper sets up or cleans up; patient completes activity. [place] assists only prior to or following the activity. 4-Supervision or Touching Assistance-helper provides verbal cues and/or touching/steadying and/or contact guard assistance as patient completes activity. Assistance may be provided throughout the activity or intermittently. 3-Partial/Moderate Assistance-helper does LESS THAN HALF the effort. [place] lifts, holds or supports trunk or limbs, but provides less than half the effort. 2-Substantial/Maximal Assistance-helper does MORE THAN HALF the effort. [place] lifts or holds trunk or limbs and provides more than half the effort. 8-Sggxpchpp-zsxysk does ALL the effort. Patient does none of the effort to complete the activity. Or, the assistance of 2 or more helpers is required for the patient to complete the activity. If activity was not attempted, code reason: 7-Patient Refused. 9-Not Applicable-not attempted and the patient did not perform the activity before the current illness, exacerbation or injury. 10-Not Attempted due to Environmental Limitations-(lack of equipment, weather restraints, etc.). 88-Not Attempted due to Medical Conditions or Safety Concerns. ADL PLOF Comments Pt reports being independent with basic mobility and self care. Pt reports using toy consultant for LE ADLs. Does not wear socks, just wears slip on shoes. Pt gets meals on wheels 4 days/wk and has someone to assist with housekeeping tasks 2 days/wk DME/Equipment: Bath Chair, Grab Bars, Shower OT Current Status Subjective Pt in bed, agrees to therapy. Pt has no reports of pain, but states he is tired. Mental Status/Objective Patient Orientation: Person, Place Attachments: [place] Catheter Current Glasses/Contacts: Yes (reading glasses. Pt reports poor vision in right eye secondary to glaucoma) Hearing Aids: No Dentures/Partials: Yes Hand Dominance: Right Upper Extremity ROM Decreased right UE secondary to previous ulnar nerve injury Left UE grossly WFL ADL-Treatment ADL-Current Pt supine to sit with SBA and increased time. Pt sat EOB with SBA for balance during UE assessment. Pt declined to complete bathing or dressing tasks at this time. Performed sit to stand and steps to HOB with CGA using 4WW. Sit to supine with SBA. Pt completed 3 bilateral UE exercises x15 reps with yellow theraband with occasional cues for proper exercise technique. Rest breaks between exercises. Pt resting in bed with needs met after session. Eating (QC): 5 (per report) Oral Hygiene (QC): 7 (declined) Shower/Bathe Self (QC): 7 (declined at this time) Upper Body Dressing (QC): 7 Lower Body Dressing (QC): 7 On/Off Footwear (QC): 7 Toileting Hygiene (QC): 1 Education OT Patient Education: Rehab process Teaching Recipient: Patient Teaching Methods: Discussion Response to Teaching: Verbalize Understanding OT Jail Goals Tape Cutting Machine Operator Goals Time Frame: Sep 21, 2019 Eating (QC): 6 Oral Hygiene (QC): 6 Toileting Hygiene (QC): 6 Shower/Bathe Self (QC): 5 Upper Body Dressing (QC): 6 Lower Body Dressing (QC): 6 On/Off Footwear (QC): 5 Additional Goals: 1-Demonstrate ADL Tasks, 2-Verbalize Understanding, 3- ImproveStrength/Jose 1=Demonstrate adherence to instructed precautions during ADL tasks. 2=Patient will verbalize/demonstrate understanding of assistive devices/modifications for ADL. 3=Patient will improve strength/tolerance for activity to enable patient to perform ADL's. OT Education/Plan Problem List/Assessment Assessment: Decreased Activ Tolerance, Decreased UE Strength, Dependent Transfers, Impaired Self-Care Skills Pt to benefit from skilled OT intervention for ADL training, transfers, strengthening, and home safety education to maximize level of independence and allow safe discharge. Discharge Recommendations Plan/Recommendations: Continue POC Treatment Plan/Plan of Care Treatment,Training & Education: Yes Patient would benefit from OT for education, treatment and training to promote independence in ADL's, mobility, safety and/or upper extremity function for ADL's. Plan of Care: ADL Retraining, Functional Mobility, UE Funct Exercise/Act Treatment Duration: Sep 21, 2019 Frequency: 5 times per week Estimated Hrs Per Day: .25 hour per day Rehab Potential: Fair Time/GCodes Start Time: 11:33 Stop Time: 12:00 Total Time Billed (hr/min): 27 Billed Treatment Time 1 visit, EVL(12minutes), EX(15minutes) VIDYA SONG OT Sep 07, 2019 12:54
--- NOTE | 2019-09-07 13:19 | NUR ---
"RD ASSESSMENT PMHx: HTN; CAD; hypercholesterolemia; renal failure PT INTERACTION: Pt was awake and pleasant during nutrition follow-up. Pt states he has been eating a little better since last assessment. Note avg PO intake 25-50% x3d, per chart review. Pt states tolerating the supplementation a little bit. Pt states some issues with nausea and constipation since last assessment. Note pt has not had BM since admission and is currently on bowel regimen of miralax PRN, per chart review. ABNORMAL NUTRITION-RELATED LAB VALUES LOW: Ca 7.9 HIGH: Est. kcal needs: 1650 kcal | 25 kcal/kg Est. Pro needs: 53 g Pro | 0.8 g Pro/kg PES STATEMENT: Inadequate oral intake (NI-2.1) related to loss of appetite | nausea | constipation as evidenced by pt interview | avg PO intake 25-50% x3d INTERVENTION: Continue with current diet order of 2000mg Na diet. Continue with current supplementation order of Ensure Enlive with meals TID, for increased kcal intake. Provides 350 kcal and 13 g Pro per serving. Pt may benefit from more aggressive bowel regimen, if constipation persists. Encouraged pt to eat when able. Will continue to follow and reassess as pt needs, intake, and status change. MONITOR/EVALUATE: PO Intake; Plan of Care; Hydration Status; Weight Status; Lab Values Celestina Cornejo, MS, RD, LD"
[2019-09-07 17:27] VITALS: BP 129/72
[2019-09-07] MEDS: traZODone 50 MG (DESYREL) TAB PO SCH (20:20)
[2019-09-07] MEDS: ONDANSETRON 4 MG/2 ML (SDV) Z0FRAN IV PRN (20:20)
[2019-09-07] MEDS: LATANOPROST 0.005% (XALATAN) OPHTH SOLN 2.5 ML OU SCH (20:20)
[2019-09-07] MEDS: PROMETHAZINE 25 MG (PHENERGAN) TAB PO PRN (23:05)
[2019-09-08] MEDS: NYSTATIN ORAL SUSP 5 ML UDC PO SCH ×5 (01:54→17:51)
[2019-09-08] MEDS: MEROPENEM 500 MG in WATER (STERILE) FOR INJECTION 10 ML IV SCH ×2 (03:53→08:46)
[2019-09-08] MEDS: ONDANSETRON 4 MG/2 ML (SDV) Z0FRAN IV PRN (03:56)
[2019-09-08 06:00] VITALS: BP 143/92
[2019-09-08] MEDS: ENOXAPARIN 40 MG/0.4 ML (LOVENOX) SYR SC SCH (06:20)
[2019-09-08] MEDS: PROMETHAZINE 25 MG (PHENERGAN) TAB PO PRN (06:24)
[2019-09-08] MEDS: oxyCODONE/APAP 5/325MG (PERCOCET 5) TABLET PO PRN ×3 (06:28→16:19)
[2019-09-08] MEDS: LACTOBACILLUS ACIDOPHILUS (PROBIOTIC) CAPSULE PO SCH ×3 (08:45→17:51)
[2019-09-08] MEDS: fentaNYL INJECTION 100 MCG/2 ML AMP IVP PRN ×2 (09:28→13:22)
[2019-09-08] MEDS: PANTOPRAZOLE 40 MG (PROTONIX) TAB PO SCH (09:30)
--- NOTE | 2019-09-08 10:29 | Physical Therapy Daily Note ---
PT Daily Note-Current Subjective Pt supine in bed with visitor present in room upon arrival. Pt states he was nauseous all night, but is feelling better now. Pt reports 8/10 pain in his neck, RN notified. Appearance Following session, pt up in chair with visitor present. Call light and tray within reach, all needs met. Mental Status Patient Orientation: Person, Place, Time, Situation Attachments: [place] Catheter Transfers SCALE: Activities may be completed with or without assistive devices. 0-Tzjlgfytay-epnnjkw completes the activity by him/herself with no assistance from a helper. 5-Set-up or Clean-up Assistance-helper sets up or cleans up; patient completes activity. [place] assists only prior to or following the activity. 4-Supervision or Touching Assistance-helper provides verbal cues and/or touching/steadying and/or contact guard assistance as patient completes activity. Assistance may be provided throughout the activity or intermittently. 3-Partial/Moderate Assistance-helper does LESS THAN HALF the effort. [place] lifts, holds or supports trunk or limbs, but provides less than half the effort. 2-Substantial/Maximal Assistance-helper does MORE THAN HALF the effort. [place] lifts or holds trunk or limbs and provides more than half the effort. 4-Hpjbwlgzv-kfxpxo does ALL the effort. Patient does none of the effort to complete the activity. Or, the assistance of 2 or more helpers is required for the patient to complete the activity. If activity was not attempted, code reason: 7-Patient Refused. 9-Not Applicable-not attempted and the patient did not perform the activity before the current illness, exacerbation or injury. 10-Not Attempted due to Environmental Limitations-(lack of equipment, weather restraints, etc.). 88-Not Attempted due to Medical Conditions or Safety Concerns. Sit to Stand (QC): 4 Gait Training Distance: 200' Gait Assistive Device: FWW Pt with small shuffling steeps, able to take larger when cued, but unable to continue throughout distance. No LOB noted. Exercises Supine Ex: Ankle pumps, Quad Set, Heel Slides, Short Arc Quads Supine Reps: 15 Assessment Current Status: Good Progress Pt with increased pain this visit, able to ambulate without LOB. Will continue to progress strengthening and functional mobility as pt tolerates. PT Acoustic Warfare Analyst Goals Senior Living Goals PT Acoustic Warfare Analyst Goals Time Frame: Sep 22, 2019 Roll Left & Right (QC): 6 Sit to Lying (QC): 6 Lying-Sitting on Side/Bed(QC): 6 Sit to Stand (QC): 6 Chair/Tbt-je-Mjitb Xfer(QC): 6 Toilet Transfer (QC): 6 Car Transfer (QC): 6 Does the Patient Walk: Yes Walk 10 feet (QC): 6 Walk 50ft with 2 Turns (QC): 6 Walk 150 ft (QC): 6 Walking 10ft on Uneven Surface: 6 1 Step (curb) (QC): 6 4 Steps (QC): 5 12 Steps (QC): 9 Picking up an Object (QC): 6 Does the Pt use WC or Scooter?: No Wheel 50 feet with 2 turns (QC: 9 Wheel 150 feet: 9 PT Plan Problem List Problem List: Activity Tolerance, Functional Strength, Safety, Balance, Gait, Transfer, Bed Mobility Treatment/Plan Treatment Plan: Continue Plan of Care Treatment Plan: Bed Mobility, Education, Functional Activity Jose, Functional Strength, Gait, Safety, Therapeutic Exercise, Transfers Treatment Duration: Sep 22, 2019 Frequency: 6 times per week Estimated Hrs Per Day: .25 hour per day Patient and/or Family Agrees t: Yes Time/GCodes Time In: 930 Time Out: 945 Total Billed Treatment Time: 15 Total Billed Treatment 1 visit GT (15 min) CECILLE JEFFERY PT Sep 08, 2019 10:29
--- NOTE | 2019-09-08 11:10 | Progress Note - Hospitalist ---
Subjective HPI/CC On Admission Date Seen by Provider: Sep 08, 2019 Time Seen by Provider: 09:00 Subjective/Events-last exam Pt reports feeling better today. Still having some nausea and vomited over night. Discussed with patient and with his son in law about getting surgery consult for possible EGD. Family requests x-ray as well. We also discussed severity of illness on presentation and that healing will take time. Pt was able to eat almost all of his oatmeal while I was at bedside and had already eaten half of his eggs which is significantly improved from previous. Objective Exam Vital Signs Vital Signs Date Time Temp Pulse Resp B/P (MAP) Pulse Ox O2 Delivery O2 Flow Rate FiO2 09/08/19 06:00 36.9 111 20 143/92 (109) 94 Room Air 09/06/19 15:21 3.00 Capillary Refill : Less Than 3 Seconds General Appearance: No Apparent Distress, Chronically ill Respiratory: Lungs Clear, No Respiratory Distress Cardiovascular: Regular Rate, Rhythm, No Murmur Gastrointestinal: Normal Bowel Sounds, Non Tender, Soft Neurologic/Psychiatric: Alert, Oriented x3 Results/Procedures Lab Patient resulted labs reviewed. Assessment/Plan Assessment and Plan Assess & Plan/Chief Complaint Severe Sepsis UTI Continue Merrem as is ESBL e coli Continues to improve Constipation- improving Nausea and vomiting Had BM yesterday Continue bowel regimen Surgery consulted for potential EGD KUB ordered ELIJAH- resolved CAD s/p CABG HTN No acute management needs Chronic pain Continue home meds, oxycodone DVT ppx: Lovenox Clinical Quality Measures DVT/VTE Risk/Contraindication: Risk Factor Score Per Nursin JONO TIERNEY MD Sep 08, 2019 11:10
--- NOTE | 2019-09-08 13:03 | Conscious Sedation/ASA ---
Conscious Sedation Pre-Proced Time 13:00 ASA Score 2 For ASA 3 and 4: Consider anesthesia and medical clearance. Also, for patients with a history of failed moderate sedation consider anesthesia. Airway Lungs Heart ASA score ASA 1: a normal healthy patient ASA 2: a patient with a mild systemic disease (mid diabetes, controlled hypertension, obesity ASA 3: a patient with a severe systemic disease that limits activity (angina, COPD, prior Myocardial infarction) ASA 4: a patient with an incapacitating disease that is a constant threat to life (CHF, renal failure) ASA 5: a moribund patient not expected to survive 24 hrs. (ruptured aneurysm) ASA 6: a declared brain- patient whose organs are being harvested. For emergent operations, add the letter E after the classification Mallampati Classification Grade 2 Sedation Plan Analgesia, Amnesia, Plan communicated to team members, Discussed options with patient/fam, Discussed risks with patient/fam The patient is an appropriate candidate to undergo the planned procedure, sedation, and anesthesia. The patient immediately re-assessed prior to indication. TRANG LEO MD Sep 08, 2019 13:03
--- NOTE | 2019-09-08 13:04 | Progress Note-Pre Operative ---
Pre-Operative Progress Note H&P Reviewed The H&P was reviewed, patient examined and no changes noted. Date Seen by Provider: Sep 08, 2019 Time Seen by Provider: 13:00 Date H&P Reviewed: Sep 08, 2019 Time H&P Reviewed: 13:00 Pre-Operative Diagnosis: persistent nausea/vomiting TRANG LEO MD Sep 08, 2019 13:04
--- NOTE | 2019-09-08 15:54 | Diagnostic Imaging Report ---
EXAMINATION: Abdomen 2 view. HISTORY: Nausea and constipation. COMPARISON: None available. FINDINGS: Median sternotomy wires are seen. There is moderate to severe dilation of small and large bowel loops. Gas is present in the rectum. No free air is seen. Lung bases are clear. IMPRESSION: Moderate to severe dilation of small and large bowel loops with gas present in the rectum. Findings favor to reflect ileus, but can potentially be seen with obstruction. Dictated by: Dictated on workstation # [id number]
--- NOTE | 2019-09-08 15:55 | NUR ---
PT WAS ONLY UP TO VOID TWO TIMES TODAY, ONE EARLY IN THE SHIFT BEFORE BREAKFAST AND THE OTHER TOWARDS 1400. AT THAT TIME STAFF HAD TO ENCOURAGE HIM TO GET UP TO USE BATHROOM AND DID VOID SMALL AMOUNT OF URINE. THIS RN BLADDER SCANNED HIM AFTERWARDS AND THERE WAS NO URINE LEFT IN BLADDER PER SCAN. THIS NURSE HAIRSPRING INSPECTOR CONTACTED DR TIERNEY AND SHE ORDER 100 ML/HR NS IV. HE ALSO HAS EGD IN AM AND WILL BE NPO AFTER 0200 09/09/19.
--- NOTE | 2019-09-08 16:06 | CONSULTATION REPORT ---
DATE OF SERVICE: ATTENDING PHYSICIAN: Dr. Perry. HISTORY OF PRESENT ILLNESS: The patient is a 79-year-old male who was initially admitted for what sounds to be a syncopal episode. He was brought in by EMS with complaints of not feeling well with nausea as well as fatigue. He did undergo a workup while in the ER and was found to have pneumonia. He was admitted and treated with medical management and did improve; however, during his admission, he development to have episodes of nausea as well as vomiting. Upon further questioning today, patient reports that he has been able to eat this morning with no nausea or vomiting. He reports that he was throwing up multiple times for the last couple of days and had been in pain. He denies any heartburn or reflux. He reports that he was recently treated for sepsis, but [facility] as well as thrush and reports that he then had a reoccurrence. He denies any hematemesis or coffee ground emesis. He did report that when he had thrush that he was having difficulty swallowing; however, since starting the medication this has seemed to resolve. It was noted, however, to have a moderate size hiatal hernia on the x-ray in the ER. He denies any other issues at this time and reports that he has been up walking some. He reports that he does not ever recall having an upper endoscopy before in the past. PAST MEDICAL HISTORY: Myocardial infarction, coronary artery disease, hypercholesterolemia, hypertension, UTI, kidney stones, renal failure, arthritis, glaucoma, neuropathy and asthma. PAST SURGICAL HISTORY: Right inguinal hernia repair, coronary artery bypass graft, 5-vessel bypass, right ulnar nerve repair. ALLERGIES: SULFA, ERYTHROMYCIN. MEDICATIONS: Albuterol sulfate nebulizer every 4 hours for shortness of breath, albuterol sulfate 2 puffs q.4 hours p.r.n., aspirin 325 mg daily, atorvastatin 10 mg at bedtime, benazepril/hydrochlorothiazide 10/12.5 mg daily, docusate 100 mg b.i.d. p.r.n., dorzolamide 2% eyedrops 1 drop both eyes b.i.d., fluconazole 20 mg daily, gabapentin 400 mg q.i.d. p.r.n., hydrocodone 5/325 mg q.6 hours p.r.n., latanoprost 1 drop OU at bedtime, loratadine 10 mg daily, multivitamin daily, Zofran 4 mg q.6 hours p.r.n., oxybutynin 5 mg b.i.d., prednisone 20 mg daily, propranolol 20 mg b.i.d., timolol 1 drop OU b.i.d., PreserVision 1 capsule b.i.d., zolpidem 5 mg at bedtime. SOCIAL HISTORY: Previous for smoke for 30 years, quit 40 years ago. Negative for alcohol. FAMILY HISTORY: Noncontributory. VITAL SIGNS: Blood pressure 143/92, pulse 111, temperature is 36.9 degrees Celsius, pulse ox 94% on room air. REVIEW OF SYSTEMS: This is a well-nourished elderly male in no acute distress. He is not experiencing any shortness of breath or difficulty breathing. No chest pain, palpitations or diaphoresis. He did report initially episodes of nausea and vomiting; however, this has resolved. No abdominal pain. No diarrhea or constipation. No red blood per rectum. No dark tarry stools. No hematemesis. No coffee ground emesis. No fever or chills. No recent inadvertent weight loss. All other review of systems negative. PHYSICAL EXAMINATION: CHEST: Clear breath sounds bilaterally. HEART: Regular, no murmurs. EXTREMITIES: No lower extremity edema. Negative Homans sign. HEENT: No scleral icterus. NECK: No cervical lymphadenopathy. ABDOMEN: Soft, nontender, nondistended. SKIN: Warm, dry and pink. NEUROLOGIC: Awake, alert and oriented x3. ASSESSMENT AND PLAN: A 79-year-old male with episodes of nausea and vomiting that has been persistent. At this time, this may be related to his pain that he has been having versus a possible septicemia that he has had in the past. He has also had a history of thrush recently. We will at this time due to his episodes of nausea and vomiting to proceed with upper endoscopy on this admission. The risks and benefits of the procedure as well as the procedure and home care instructions were explained to the patient. The patient verbalized understanding of instructions and at this time would like to proceed with the upper endoscopy. Job ID: [id number] DocumentID: [id number] Dictated Date: 09/08/2019 12:37:42 Enforcement Officer Date: 09/08/2019 16:05:49 Dictated By: CELIA HENRY APRN
[2019-09-08] MEDS: NS IV 1000 ML 1,000 ML IV SCH (16:18)
[2019-09-08 18:00] VITALS: BP 122/63
[2019-09-08] MEDS: LATANOPROST 0.005% (XALATAN) OPHTH SOLN 2.5 ML OU SCH (20:29)
[2019-09-08] MEDS: traZODone 50 MG (DESYREL) TAB PO SCH (20:29)
[2019-09-09] VITALS (18 sets, daily range): BP systolic 121–170; BP diastolic 63–96
[2019-09-09] MEDS: NS IV 1000 ML 1,000 ML IV SCH ×2 (02:16→15:53)
[2019-09-09 05:13] LABS: HEMOGLOBIN 10.8 G/DL (13.3-17.7); MEAN PLATELET VOLUME 8.5 FL (7.4-10.4); RED CELL DISTRIBUTION WIDTH 17.2 % (10.0-14.5); WHITE BLOOD COUNT 7.6 10^3/uL (4.3-11.0)
[2019-09-09 05:31] LABS: CHLORIDE 105 MMOL/L (98-107); POTASSIUM 3.7 MMOL/L (3.6-5.0); SODIUM 139 MMOL/L (135-145)
[2019-09-09 05:32] LABS: CALCIUM 7.2 MG/DL (8.5-10.1)
[2019-09-09 05:33] LABS: GLUCOSE 87 MG/DL (70-105)
[2019-09-09 05:34] LABS: CARBON DIOXIDE 25 MMOL/L (21-32)
[2019-09-09 05:37] LABS: CREATININE SERUM 0.78 MG/DL (0.60-1.30); GFR ESTIMATED > 60
[2019-09-09 05:38] LABS: BUN/CREATININE RATIO 13
[2019-09-09] MEDS: NYSTATIN ORAL SUSP 5 ML UDC PO SCH ×4 (05:49→16:55)
[2019-09-09] MEDS: ENOXAPARIN 40 MG/0.4 ML (LOVENOX) SYR SC SCH (05:50)
[2019-09-09] MEDS: LACTOBACILLUS ACIDOPHILUS (PROBIOTIC) CAPSULE PO SCH ×3 (08:51→16:55)
[2019-09-09] MEDS ORDERED: NS IV 500 ML 500 ML ONE (09:36)
[2019-09-09] MEDS ORDERED: MIDAZOLAM 5 MG/5 ML (VERSED) VIAL ONE ×2 (09:37→10:01)
[2019-09-09] MEDS ORDERED: fentaNYL INJECTION 100 MCG/2 ML AMP ONE (09:37)
[2019-09-09] MEDS: MIDAZOLAM 5 MG/5 ML (VERSED) VIAL IV PRN ×5 (09:43→10:08)
[2019-09-09] MEDS ORDERED: LIDOCAINE JELLY 2% 6 ML SYRINGE ONE (09:49)
[2019-09-09] MEDS ORDERED: NS IV 500 ML 500 ML IV ONE (10:00)
[2019-09-09] MEDS ORDERED: HURRICAINE EXT TUBE (BENZOCAINE) XX PRN (10:00)
[2019-09-09] MEDS ORDERED: fentaNYL INJECTION 100 MCG/2 ML AMP IVP ONE (10:00)
[2019-09-09] MEDS ORDERED: LIDOCAINE JELLY 2% 6 ML SYRINGE MM PRN (10:00)
--- NOTE | 2019-09-09 12:17 | Progress Note-Post Operative ---
Post-Operative Progess Note Surgeon (s)/Human Services Instructor (s) Surgeon TRANG LEO MD Human Services Instructor: none Pre-Operative Diagnosis persistent nausea/vomiting Post-Operative Diagnosis reflux esophagitis(stage 3) with distal esophageal stricture, type 3 large HH(>5cm), moderate gastritis. Procedure & Operative Findings Date of Procedure 09/09/19 Procedure Performed/Findings EGD with bx and balloon dilatation. Anesthesia Type cs Estimated Blood Loss Estimated blood loss (mL): minimal Specimens/Packing Specimens Removed antrum, ge jxn TRANG LEO MD Sep 09, 2019 12:17
[2019-09-09] MEDS: PANTOPRAZOLE 40 MG (PROTONIX) TAB PO SCH ×2 (13:20→13:54)
--- NOTE | 2019-09-09 13:22 | NUR ---
Afternoon medications non-administered due to patient sleepiness and confusion post EGD. patient currently resting with eyes closed daughter present at bedside.
[2019-09-09] MEDS: oxyCODONE/APAP 5/325MG (PERCOCET 5) TABLET PO PRN (14:03)
--- NOTE | 2019-09-09 14:46 | OPERATIVE REPORT ---
DATE OF SERVICE: 09/09/2019 ATTENDING PRIMARY CARE PHYSICIAN: Alek Perry DO. PREOPERATIVE DIAGNOSIS: Persistent nausea and vomiting. POSTOPERATIVE DIAGNOSES: Distal esophageal stricture, large type 3 hiatal hernia greater than 5 cm in size, moderate gastritis. No distal obstructions. PROCEDURE: EGD with biopsy and balloon dilatation. SURGEON: Trang Leo MD. ANESTHESIA: Conscious sedation. ESTIMATED BLOOD LOSS: Minimal. FINDINGS: Distal esophageal stricture, large type 3 hiatal hernia greater than 5 cm in size, moderate gastritis. No distal obstructions. DISPOSITION: The patient tolerated the procedure well. INDICATIONS: The patient is a 79-year-old male, who was admitted for dehydration and renal failure. Since being admitted, he has had issues with persistent nausea and vomiting; however, this also may represented regurgitation. He does report a history of gastroesophageal reflux disease as well. He does not report any pain in the abdomen nor any postprandial pain. DESCRIPTION OF PROCEDURE: The patient was brought to the endoscopy suite, laid in the left lateral decubitus position with head slightly elevated. After adequate IV pain and stated medications and conscious sedation anesthesia, the mouthpiece was applied. The endoscope was placed in the mouth, visualizing the pharynx and hypopharyngeal region. Vocal cords, epiglottis and vallecula identified and appeared to be normal. The endoscope was then gently abated esophageal opening and esophagus insufflated. The endoscope was then advanced through the first, second and third portions of esophagus at the level of GE junction, reflux esophagitis stage III identified as well as a distal esophageal stricture. The GE junction was also intrathoracic consistent with a hiatal hernia. Biopsies were taken of the GE junction with forceps with visualization of good hemostasis. The endoscope was then advanced into the stomach and endoscope retroflexed, visualizing a large type 3 hiatal hernia, greater than 5 cm in size. This is the most likely root of his symptoms and his likely experiencing more regurgitation versus nausea and vomiting. There was a moderate severity gastritis. Biopsy was taken of the antrum to rule out H. pylori with visualization of good hemostasis. The endoscope was then advanced to the pylorus and the first and second portion of the duodenum, which appeared normal with no distal obstructions. We then proceeded with balloon dilatation of the distal esophageal stricture. The balloon was placed into the stomach and pulled back to the area of stricture. We first proceeded to 2 and then 4 atmospheres of pressure. At 5 atmospheres of pressure, there was a moderate resistance and this was approximately 19.5 mm in luminal diameter. We left this in place. We left this in place for 60 seconds. The balloon was then desufflated and removed with visualization of good hemostasis as well as no mucosal tears. The endoscope was then slowly withdrawn while taking a second look and suctioning of residual air with no additional findings. The patient tolerated the procedure well. We will start him back on a diet; however, we will recommend medical management for the hiatal hernia and stricture and he will need to take a PPI acid buggyman either on a daily or b.i.d. basis as well as the necessary lifestyle and diet accommodation including small and more frequent meals, avoidance of eating at night as well as head elevation while lying supine. He also needs to avoid caffeinated beverages, spicy, greasy and acidic foods. Job ID: [id number] DocumentID: [id number] Dictated Date: 09/09/2019 10:35:24 Finisher Denture Date: 09/09/2019 14:45:27 Dictated By: TRANG LEO MD
[2019-09-09] MEDS: polyethylene glycoL POWDER 17 GM (MIRALAX) PACK PO PRN (16:55)
[2019-09-09] MEDS: DICLOFENAC 1% GEL 100 GM (VOLTAREN) TUBE TOP PRN (17:18)
[2019-09-09] MEDS: traZODone 50 MG (DESYREL) TAB PO SCH (21:14)
[2019-09-09] MEDS: LATANOPROST 0.005% (XALATAN) OPHTH SOLN 2.5 ML OU SCH (21:14)
[2019-09-09] MEDS: fentaNYL INJECTION 100 MCG/2 ML AMP IVP PRN (22:17)
[2019-09-10] MEDS: NYSTATIN ORAL SUSP 5 ML UDC PO SCH ×5 (00:34→23:47)
[2019-09-10] MEDS: NS IV 1000 ML 1,000 ML IV SCH ×3 (03:36→23:47)
[2019-09-10 05:05] VITALS: BP 120/44
[2019-09-10] MEDS: ENOXAPARIN 40 MG/0.4 ML (LOVENOX) SYR SC SCH (06:22)
--- NOTE | 2019-09-10 08:52 | NUR ---
RD FOLLOW-UP Note PO intake still pretty poor. Placed order for Ensure Enlive ([place]) with meals TID, for increased kcal intake. Provides 350 kcal and 13 g Pro per serving. Will continue to follow and reassess as pt needs, intake, and status change. Celestina Cornejo, MS, RD, LD
[2019-09-10] MEDS: PANTOPRAZOLE 40 MG (PROTONIX) TAB PO SCH (08:56)
[2019-09-10] MEDS: LACTOBACILLUS ACIDOPHILUS (PROBIOTIC) CAPSULE PO SCH ×3 (08:56→20:32)
[2019-09-10] MEDS: polyethylene glycoL POWDER 17 GM (MIRALAX) PACK PO SCH ×2 (10:18→20:32)
--- NOTE | 2019-09-10 10:21 | Physical Therapy Daily Note ---
PT Daily Note-Current Subjective Agreeable to PT. No complaints. Requests to toilet. Mental Status Patient Orientation: Person, Place, Time, Situation Attachments: IV Transfers SCALE: Activities may be completed with or without assistive devices. 2-Ekrgjmhhfl-gsghkjj completes the activity by him/herself with no assistance from a helper. 5-Set-up or Clean-up Assistance-helper sets up or cleans up; patient completes activity. [place] assists only prior to or following the activity. 4-Supervision or Touching Assistance-helper provides verbal cues and/or touching/steadying and/or contact guard assistance as patient completes activity . Assistance may be provided throughout the activity or intermittently. 3-Partial/Moderate Assistance-helper does LESS THAN HALF the effort. [place] lifts, holds or supports trunk or limbs, but provides less than half the effort. 2-Substantial/Maximal Assistance-helper does MORE THAN HALF the effort. [place] lifts or holds trunk or limbs and provides more than half the effort. 2-Gabucldqy-xlrhci does ALL the effort. Patient does none of the effort to complete the activity. Or, the assistance of 2 or more helpers is required for the patient to complete the activity. If activity was not attempted, code reason: 7-Patient Refused. 9-Not Applicable-not attempted and the patient did not perform the activity before the current illness, exacerbation or injury. 10-Not Attempted due to Environmental Limitations-(lack of equipment, weather restraints, etc.). 88-Not Attempted due to Medical Conditions or Safety Concerns. Roll Left & Right (QC): 4 Lying to Sitting/Side of Bed(Q: 4 (SBA for safety; intermittent cues for sequencing. ) Sit to Stand (QC): 3 (min assist to come to a stand from the EOB with skilled cues for hand use/placement. Slightly retropulsive with initial stand. ) Toilet Transfer (QC): 3 (CGA from the toilet with cues for hand placement. ) Gait Training Does the Patient Walk?: Yes Walk 150 ft (QC): 3 (CGA with heavy cues for step length and posture, responds well to cues but needs them frequently) Gait Assistive Device: Walker 4 Wheeled short steps with step through but hits foot flat; forward flexed at hips and head down. slow gait pattern; some difficulty with turning noted. He does respond to cues but needs them frequently. Treatments Functional transfer trainining, toileting, and gait. Pt up in chair post treatment with chair alarm activated. Nurse and nurse tech notified that he was up in chair. Assessment Current Status: Good Progress Requires cues for task completion but able to follow. Cooperative. Unsteady with gait and slightly retropulsive with initial standing. PT Paper And Prints Restorer Goals Paper And Prints Restorer Goals PT Group Home Goals Time Frame: Sep 22, 2019 Roll Left & Right (QC): 6 Sit to Lying (QC): 6 Lying-Sitting on Side/Bed(QC): 6 Sit to Stand (QC): 6 Chair/Xtb-pu-Wmvmu Xfer(QC): 6 Toilet Transfer (QC): 6 Car Transfer (QC): 6 Does the Patient Walk: Yes Walk 10 feet (QC): 6 Walk 50ft with 2 Turns (QC): 6 Walk 150 ft (QC): 6 Walking 10ft on Uneven Surface: 6 1 Step (curb) (QC): 6 4 Steps (QC): 5 12 Steps (QC): 9 Picking up an Object (QC): 6 Does the Pt use WC or Scooter?: No Wheel 50 feet with 2 turns (QC: 9 Wheel 150 feet: 9 PT Plan Problem List Problem List: Activity Tolerance, Functional Strength, Safety, Balance, Gait, Transfer Treatment/Plan Treatment Plan: Continue Plan of Care Treatment Plan: Bed Mobility, Education, Functional Activity Jose, Functional Strength, Gait, Safety, Therapeutic Exercise, Transfers Treatment Duration: Sep 22, 2019 Frequency: 6 times per week Estimated Hrs Per Day: .25 hour per day Patient and/or Family Agrees t: Yes Safety Risks/Education Patient Education: Gait Training, Transfer Techniques, Safety Issues Teaching Recipient: Patient Teaching Methods: Demonstration, Discussion Response to Teaching: Reinforcement Needed Discharge Recommendations Therapy Discharge Recommendati: Post Acute PT Time/GCodes Time In: 953 Time Out: 1020 Total Billed Treatment Time: 27 Total Billed Treatment visit FA 27 PABLO BEGUM PT Sep 10, 2019 10:21
[2019-09-10] MEDS ORDERED: SCOPOLAMINE PATCH REMOVAL TP SCH (12:30)
[2019-09-10] MEDS: DICLOFENAC 1% GEL 100 GM (VOLTAREN) TUBE TOP PRN (13:46)
--- NOTE | 2019-09-10 14:38 | Occupational Ther Daily Note ---
OT Current Status-Daily Note Subjective Pt alert, lying in bed. Daughter present in room. Pt agrees to therapy. Pt and daughter states that he has gotten bathed already today. Daughter states that pt has sock aide at home but has not used it. Daughter comes every few days to wash pt's feet and change socks. Mental Status/Objective Patient Orientation: Person, Place, Time, Situation Attachments: IV ADL-Treatment Therapy Code Descriptions/Definitions Functional [place] Measure: 0=Not Assessed/NA 4=Minimal Assistance 1=Total Assistance 5=Supervision or Setup 2=Maximal Assistance 6=Modified [place] 3=Moderate Assistance 7=Complete IndependenceSCALE: Activities may be completed with or without assistive devices. 7-Rjdmehjhql-erdqbiy completes the activity by him/herself with no assistance from a helper. 5-Set-up or Clean-up Assistance-helper sets up or cleans up; patient completes activity. [place] assists only prior to or following the activity. 4-Supervision or Touching Assistance-helper provides verbal cues and/or touching/steadying and/or contact guard assistance as patient completes activity. Assistance may be provided throughout the activity or intermittently. 3-Partial/Moderate Assistance-helper does LESS THAN HALF the effort. [place] lifts, holds or supports trunk or limbs, but provides less than half the effort. 2-Substantial/Maximal Assistance-helper does MORE THAN HALF the effort. [place] lifts or holds trunk or limbs and provides more than half the effort. 6-Pvqycdiyt-pejwcp does ALL the effort. Patient does none of the effort to com plete the activity. Or, the assistance of 2 or more helpers is required for the patient to complete the activity. If activity was not attempted, code reason: 7-Patient Refused. 9-Not Applicable-not attempted and the patient did not perform the activity before the current illness, exacerbation or injury. 10-Not Attempted due to Environmental Limitations-(lack of equipment, weather restraints, etc.). 88-Not Attempted due to Medical Conditions or Safety Concerns. Other Treatment Discussed sock aide and how to use it. Will bring sock aide next treatment to work on. Pt able to remember 3 of 5 B UE theraband exercises with light resistance. Pt tolerated 1 set 10 reps of 5 exercises. After session, pt lying in bed with call light/phone in reach. All needs met in room. OT Central Supply Tech Goals Shelter Goals Time Frame: Sep 21, 2019 Eating (QC): 6 Oral Hygiene (QC): 6 Toileting Hygiene (QC): 6 Shower/Bathe Self (QC): 5 Upper Body Dressing (QC): 6 Lower Body Dressing (QC): 6 On/Off Footwear (QC): 5 Additional Goals: 1-Demonstrate ADL Tasks, 2-Verbalize Understanding, 3- ImproveStrength/Jose 1=Demonstrate adherence to instructed precautions during ADL tasks. 2=Patient will verbalize/demonstrate understanding of assistive devices/modifications for ADL. 3=Patient will improve strength/tolerance for activity to enable patient to perform ADL's. OT Education/Plan Problem List/Assessment Assessment: Decreased Activ Tolerance, Decreased UE Strength, Impaired Self- Care Skills Pt to benefit from skilled OT intervention for ADL training, transfers, strengthening, and home safety education to maximize level of independence and allow safe discharge. Discharge Recommendations Plan/Recommendations: Continue POC Treatment Plan/Plan of Care Patient would benefit from OT for education, treatment and training to promote independence in ADL's, mobility, safety and/or upper extremity function for ADL's. Plan of Care: ADL Retraining, Functional Mobility, UE Funct Exercise/Act Treatment Duration: Sep 21, 2019 Frequency: 5 times per week Estimated Hrs Per Day: .25 hour per day Rehab Potential: Fair Time/GCodes Start Time: 14:15 Stop Time: 14:33 Total Time Billed (hr/min): 18 Billed Treatment Time 1 visit-EX 1 (18 min) PABLO NORIEGA Sep 10, 2019 14:38
[2019-09-10 17:05] VITALS: BP 155/80
[2019-09-10] MEDS: ONDANSETRON 4 MG/2 ML (SDV) Z0FRAN IV PRN (17:22)
--- NOTE | 2019-09-10 18:41 | NUR ---
PT'S 1800 MEDS NOT GIVEN BECAUSE PT IS NAUSEATED. PT GIVEN ZOFRAN AND IS DOING A LITTLE BETTER BUT DOESN'T THINK HE CAN TOLERATE PO MEDS AT THIS TIME.
--- NOTE | 2019-09-10 20:06 | Progress Note - Hospitalist ---
Subjective HPI/CC On Admission Date Seen by Provider: Sep 10, 2019 Time Seen by Provider: 10:40 Subjective/Events-last exam He reports no complaints or concerns. He is getting around with assistance. He misses his cat. He denies fevers and chills. He denies trouble breathing or cough. He denies chest pain. He denies nausea and vomiting. Objective Exam Vital Signs Vital Signs Date Time Temp Pulse Resp B/P (MAP) Pulse Ox O2 Delivery O2 Flow Rate FiO2 09/10/19 17:05 36.1 92 16 155/80 (105) 95 Room Air 09/09/19 10:35 6 Capillary Refill : Less Than 3 SecondsLess Than 3 Seconds General Appearance: No Apparent Distress, WD/WN Respiratory: Lungs Clear, Normal Breath Sounds, No Respiratory Distress Cardiovascular: Regular Rate, Rhythm, No Edema, No Murmur Gastrointestinal: Normal Bowel Sounds, Non Tender, Soft Extremity: Normal Inspection, Non Tender, No Pedal Edema Neurologic/Psychiatric: Alert, Oriented x3, Motor Weakness Skin: Normal Color, Warm/Dry Results/Procedures Lab Patient resulted labs reviewed. Assessment/Plan Assessment and Plan Assess & Plan/Chief Complaint ESBL UTI -Continue Merrem Constipation- improving Nausea and vomiting Hiatal hernia Esophageal stricture Gastritis -Continue bowel regimen -EGD revealed esophageal stricture with was treated with balloon dilitation, grade 3 hiatal hernia, and moderate gastritis -Continue PPI CAD s/p CABG HTN -No acute management needs Chronic pain -Continue home meds, oxycodone Debility -PT/OT DVT ppx: Lovenox Severe Sepsis, resolved ELIJAH, resolved Diagnosis/Problems Diagnosis/Problems (1) UTI (urinary tract infection) Status: Acute (2) ESBL (extended spectrum beta-lactamase) producing bacteria infection Status: Acute (3) Debility Status: Acute (4) Esophageal stricture Status: Acute (5) Hiatal hernia Status: Acute (6) Gastritis Status: Acute Clinical Quality Measures DVT/VTE Risk/Contraindication: Risk Factor Score Per Nursin ALYSSA RAUSCH MD Sep 10, 2019 20:06
[2019-09-10] MEDS: LATANOPROST 0.005% (XALATAN) OPHTH SOLN 2.5 ML OU SCH (20:30)
[2019-09-10] MEDS: ZOLPIDEM 5 MG (AMBIEN) TAB PO PRN (20:32)
[2019-09-10] MEDS: traZODone 50 MG (DESYREL) TAB PO SCH (20:32)
[2019-09-10] MEDS: oxyCODONE/APAP 5/325MG (PERCOCET 5) TABLET PO PRN (20:33)
[2019-09-11 05:28] VITALS: BP 144/79
[2019-09-11] MEDS: ENOXAPARIN 40 MG/0.4 ML (LOVENOX) SYR SC SCH (06:08)
[2019-09-11] MEDS: NS IV 1000 ML 1,000 ML IV SCH ×3 (06:09→20:50)
[2019-09-11] MEDS: NYSTATIN ORAL SUSP 5 ML UDC PO SCH ×4 (07:40→23:49)
[2019-09-11] MEDS: PANTOPRAZOLE 40 MG (PROTONIX) TAB PO SCH (07:40)
[2019-09-11] MEDS: LACTOBACILLUS ACIDOPHILUS (PROBIOTIC) CAPSULE PO SCH ×3 (07:41→20:48)
[2019-09-11] MEDS: polyethylene glycoL POWDER 17 GM (MIRALAX) PACK PO SCH ×2 (07:43→20:48)
--- NOTE | 2019-09-11 09:39 | Physical Therapy Daily Note ---
PT Daily Note-Current Subjective Pt presents sitting up in chair upon arrival to room, agreeable to therapy at this time. Pt reports he has been having stomach pain, but never rates on a scale. RN notified of stomach pains. Appearance Following session, pt up in chair with tray and call ight within reach. Pt with no further needs at this time Mental Status Patient Orientation: Person, Place Attachments: IV Transfers SCALE: Activities may be completed with or without assistive devices. 2-Smqndtioil-yzjxtur completes the activity by him/herself with no assistance from a helper. 5-Set-up or Clean-up Assistance-helper sets up or cleans up; patient completes activity. [place] assists only prior to or following the activity. 4-Supervision or Touching Assistance-helper provides verbal cues and/or touching/steadying and/or contact guard assistance as patient completes a ctivity. Assistance may be provided throughout the activity or intermittently. 3-Partial/Moderate Assistance-helper does LESS THAN HALF the effort. [place] lifts, holds or supports trunk or limbs, but provides less than half the effort. 2-Substantial/Maximal Assistance-helper does MORE THAN HALF the effort. [place] lifts or holds trunk or limbs and provides more than half the effort. 3-Drlwqjoca-pcmnoc does ALL the effort. Patient does none of the effort to complete the activity. Or, the assistance of 2 or more helpers is required for the patient to complete the activity. If activity was not attempted, code reason: 7-Patient Refused. 9-Not Applicable-not attempted and the patient did not perform the activity before the current illness, exacerbation or injury. 10-Not Attempted due to Environmental Limitations-(lack of equipment, weather restraints, etc.). 88-Not Attempted due to Medical Conditions or Safety Concerns. Sit to Stand (QC): 3 CGA for initial stand, pt requires cueing for hand placement Gait Training Does the Patient Walk?: Yes Walk 150 ft (QC): 3 Gait Assistive Device: Walker 4 Wheeled CGA for safety, pt with short shuffing steps, kyphotic posture throughout ambulation. Pt able to correct with cueing but unable to carry over throughout rest of gait. Exercises Seated Therapy Exercises: Ankle pumps, Sit to stand, Long arc quads, Hip flexion, Hamstring Curls Seated Reps: 10 Assessment Current Status: Good Progress Pt with stomach pain this visit which limited tolerance, will continue to progress pt as tolerated. PT Tile Decorator Goals Tile Decorator Goals PT Prison Goals Time Frame: Sep 22, 2019 Roll Left & Right (QC): 6 Sit to Lying (QC): 6 Lying-Sitting on Side/Bed(QC): 6 Sit to Stand (QC): 6 Chair/Ese-zx-Jrcxa Xfer(QC): 6 Toilet Transfer (QC): 6 Car Transfer (QC): 6 Does the Patient Walk: Yes Walk 10 feet (QC): 6 Walk 50ft with 2 Turns (QC): 6 Walk 150 ft (QC): 6 Walking 10ft on Uneven Surface: 6 1 Step (curb) (QC): 6 4 Steps (QC): 5 12 Steps (QC): 9 Picking up an Object (QC): 6 Does the Pt use WC or Scooter?: No Wheel 50 feet with 2 turns (QC: 9 Wheel 150 feet: 9 PT Plan Problem List Problem List: Activity Tolerance, Functional Strength, Safety, Balance, Gait, Transfer, Bed Mobility Treatment/Plan Treatment Plan: Continue Plan of Care Treatment Plan: Bed Mobility, Education, Functional Activity Jose, Functional Strength, Gait, Safety, Therapeutic Exercise, Transfers Treatment Duration: Sep 22, 2019 Frequency: 6 times per week Estimated Hrs Per Day: .25 hour per day Patient and/or Family Agrees t: Yes Time/GCodes Time In: 910 Time Out: 933 Total Billed Treatment Time: 23 Total Billed Treatment 1 visit EX (23 min) CECILLE JEFFERY PT Sep 11, 2019 09:39
--- NOTE | 2019-09-11 11:22 | Occupational Ther Daily Note ---
OT Current Status-Daily Note Subjective Pt alert, sitting in recliner. Pt agrees to therapy. No c/o pain, does c/o stomach not feeling well. Reported to nrsg. Mental Status/Objective Patient Orientation: Person, Place, Time, Situation Attachments: IV ADL-Treatment Pt declines bathing, stating that his daughter will be here to help. SHARMA encouraged pt to complete all areas that he could. Pt educated on use of sock aide. Sock aide left in room for practice and explained to pt to leave sock aide in room after discharge. Pt demonstrated understanding of sock aide with minimal verbal cues. Pt then requested to use toilet. SBA for toilet transfer using 4WW and BSC. SBA using 4WW to manipulate clothing and hygiene. Therapy Code Descriptions/Definitions Functional [place] Measure: 0=Not Assessed/NA 4=Minimal Assistance 1=Total Assistance 5=Supervision or Setup 2=Maximal Assistance 6=Modified [place] 3=Moderate Assistance 7=Complete IndependenceSCALE: Activities may be completed with or without assistive devices. 6-Sihjdehsuy-ajajmjh completes the activity by him/herself with no assistance from a helper. 5-Set-up or Clean-up Assistance-helper sets up or cleans up; patient completes activity. [place] assists only prior to or following the activity. 4-Supervision or Touching Assistance-helper provides verbal cues and/or touching/steadying and/or contact guard assistance as patient completes activity. Assistance may be provided throughout the activity or intermittently. 3-Partial/Moderate Assistance-helper does LESS THAN HALF the effort. [place] lifts, holds or supports trunk or limbs, but provides less than half the effort. 2-Substantial/Maximal Assistance-helper does MORE THAN HALF the effort. [place] lifts or holds trunk or limbs and provides more than half the effort. 5-Yryjljkmz-tcrpza does ALL the effort. Patient does none of the effort to complete the activity. Or, the assistance of 2 or more helpers is required for the patient to complete the activity. If activity was not attempted, code reason: 7-Patient Refused. 9-Not Applicable-not attempted and the patient did not perform the activity before the current illness, exacerbation or injury. 10-Not Attempted due to Environmental Limitations-(lack of equipment, weather restraints, etc.). 88-Not Attempted due to Medical Conditions or Safety Concerns. Toileting Hygiene (QC): 4 Toilet Transfer (QC): 4 Other Treatment B UE medium resistance theraband exercises to increase strength and activity tolerance. Skilled instructions for technique, modifications and positioning. Pt tolerated 1 set 10 reps of 4 exercises. After session, pt sitting in r ecliner with call light/phone in reach. All needs met in room. Education OT Patient Education: Exercise program Teaching Recipient: Patient Teaching Methods: Demonstration, Handout, Discussion Response to Teaching: Verbalize Understanding, Return Demonstration, Reinforcement Needed OT [facility] Goals Inbound Ingredient Logistics Specialist Goals Time Frame: Sep 21, 2019 Eating (QC): 6 Oral Hygiene (QC): 6 Toileting Hygiene (QC): 6 Shower/Bathe Self (QC): 5 Upper Body Dressing (QC): 6 Lower Body Dressing (QC): 6 On/Off Footwear (QC): 5 Additional Goals: 1-Demonstrate ADL Tasks, 2-Verbalize Understanding, 3- ImproveStrength/Jose 1=Demonstrate adherence to instructed precautions during ADL tasks. 2=Patient will verbalize/demonstrate understanding of assistive devices/modifications for ADL. 3=Patient will improve strength/tolerance for activity to enable patient to perform ADL's. OT Education/Plan Problem List/Assessment Assessment: Decreased Activ Tolerance, Decreased UE Strength, Impaired Self- Care Skills Pt to benefit from skilled OT intervention for ADL training, transfers, strengthening, and home safety education to maximize level of independence and allow safe discharge. Discharge Recommendations Plan/Recommendations: Continue POC Treatment Plan/Plan of Care Patient would benefit from OT for education, treatment and training to promote independence in ADL's, mobility, safety and/or upper extremity function for ADL's. Plan of Care: ADL Retraining, Functional Mobility, UE Funct Exercise/Act Treatment Duration: Sep 21, 2019 Frequency: 5 times per week Estimated Hrs Per Day: .25 hour per day Rehab Potential: Fair Time/GCodes Start Time: 10:58 Stop Time: 11:28 Total Time Billed (hr/min): 30 Billed Treatment Time 1 visit-ADL 1 (20 min) EX 1 (10 min) PABLO NORIEGA Sep 11, 2019 11:22
[2019-09-11] MEDS: ONDANSETRON 4 MG/2 ML (SDV) Z0FRAN IV PRN ×2 (11:33→17:45)
--- NOTE | 2019-09-11 13:00 | NUR ---
Notice of Medicare Non Coverage presented, reviewed, signed and placed in patient chart. Patient voiced no intention to appeal and deny any needs or further questions at this time.
--- NOTE | 2019-09-11 14:25 | NUR ---
CM/SS follow up. The patient was sitting in his chair with his lunch tray untouched. He stated that it looks delicious; however, his stomach is upset and his is unable to eat. He requested this sw to move his lunch tray out of the way. CM/SS left the Ensure and encouraged drinking it for nutrition. He verbalized understanding. CM/SS discussed discharge with the patient. CM/SS informed him it is likely he will discharge tomorrow 09/11 with a continuation of home health. He verbalized understanding and stated he was ready to get home to his cat "Paige Paige". The patient denied further needs at this time. CM/SS will continue to follow.
--- NOTE | 2019-09-11 15:19 | NUR ---
I SPOKE WITH PT WHO IS STILL NAUSEOUS AND STILL HAS NOT HAD A BOWEL MOVEMENT THAT HE MIGHT WANT TO TRY A SUPPOSITORY.
[2019-09-11] MEDS: BISACODYL 10 MG SUPP (DULCOLAX) PR PRN (17:46)
[2019-09-11 17:55] VITALS: BP 160/74
--- NOTE | 2019-09-11 18:46 | NUR ---
PT'S 1800 MEDS WERE NOT GIVEN. PT IS STILL NAUSEATED.
[2019-09-11] MEDS: traZODone 50 MG (DESYREL) TAB PO SCH (20:48)
[2019-09-11] MEDS: ZOLPIDEM 5 MG (AMBIEN) TAB PO PRN (20:48)
[2019-09-11] MEDS: LATANOPROST 0.005% (XALATAN) OPHTH SOLN 2.5 ML OU SCH (20:49)
[2019-09-12 05:00] VITALS: BP 145/77
[2019-09-12] MEDS: ENOXAPARIN 40 MG/0.4 ML (LOVENOX) SYR SC SCH (06:11)
[2019-09-12] MEDS: NS IV 1000 ML 1,000 ML IV SCH (06:15)
[2019-09-12] MEDS: NYSTATIN ORAL SUSP 5 ML UDC PO SCH ×3 (08:00→19:26)
[2019-09-12] MEDS: polyethylene glycoL POWDER 17 GM (MIRALAX) PACK PO SCH ×2 (08:02→20:32)
[2019-09-12] MEDS: PANTOPRAZOLE 40 MG (PROTONIX) TAB PO SCH (08:02)
[2019-09-12] MEDS: LACTOBACILLUS ACIDOPHILUS (PROBIOTIC) CAPSULE PO SCH ×3 (08:02→19:26)
--- NOTE | 2019-09-12 11:27 | Physical Therapy Daily Note ---
PT Daily Note-Current Subjective Pt presents supine in bed upon arrival to room, pt daughter present at bedside. Pt agreeable to therapy at this time Pain Numeric Pain Scale: 0-No Pain Appearance Following session, pt sitting up in chair with call light and tray within reach. All needs met. Pt daughter at bedside Mental Status Patient Orientation: Person, Place, Situation Attachments: IV Transfers SCALE: Activities may be completed with or without assistive devices. 4-Xkroqwnlok-zukixye completes the activity by him/herself with no assistance from a helper. 5-Set-up or Clean-up Assistance-helper sets up or cleans up; patient completes activity. [place] assists only prior to or following the activity. 4-Supervision or Touching Assistance-helper provides verbal cues and/or touching/steadying and/or contact guard assistance as patient completes activity. Assistance may be provided throughout the activity or intermittently. 3-Partial/Moderate Assistance-helper does LESS THAN HALF the effort. [place] lifts, holds or supports trunk or limbs, but provides less than half the effort. 2-Substantial/Maximal Assistance-helper does MORE THAN HALF the effort. [place] lifts or holds trunk or limbs and provides more than half the effort. 9-Biiczpupg-rcovmy does ALL the effort. Patient does none of the effort to complete the activity. Or, the assistance of 2 or more helpers is required for the patient to complete the activity. If activity was not attempted, code reason: 7-Patient Refused. 9-Not Applicable-not attempted and the patient did not perform the activity before the current illness, exacerbation or injury. 10-Not Attempted due to Environmental Limitations-(lack of equipment, weather restraints, etc.). 88-Not Attempted due to Medical Conditions or Safety Concerns. Roll Left & Right (QC): 5 Sit to Stand (QC): 4 Gait Training Does the Patient Walk?: Yes Distance: 200' Gait Assistive Device: Walker 4 Wheeled Pt tolerated increased distance, but continues to have small shuffling steps and kyphotic posture. Pt daughter present and reports that pt ambulation is at baseline. Exercises Seated Therapy Exercises: Ankle pumps, Sit to stand, Long arc quads, Hip flexion, Hip abd/add Seated Reps: 15 Assessment Current Status: Fair Progress Pt with increased ambulation tolerance this visit. Pt daughter reports that he is at baseline with mobility, will continue to progress tolerance as able. PT Prison Goals Purchasing Buyer Goals PT Purchasing Buyer Goals Time Frame: Sep 22, 2019 Roll Left & Right (QC): 6 Sit to Lying (QC): 6 Lying-Sitting on Side/Bed(QC): 6 Sit to Stand (QC): 6 Chair/Wzv-fx-Wnecq Xfer(QC): 6 Toilet Transfer (QC): 6 Car Transfer (QC): 6 Does the Patient Walk: Yes Walk 10 feet (QC): 6 Walk 50ft with 2 Turns (QC): 6 Walk 150 ft (QC): 6 Walking 10ft on Uneven Surface: 6 1 Step (curb) (QC): 6 4 Steps (QC): 5 12 Steps (QC): 9 Picking up an Object (QC): 6 Does the Pt use WC or Scooter?: No Wheel 50 feet with 2 turns (QC: 9 Wheel 150 feet: 9 PT Plan Problem List Problem List: Activity Tolerance, Functional Strength, Safety, Balance, Gait, Transfer, Bed Mobility Treatment/Plan Treatment Plan: Continue Plan of Care Treatment Plan: Bed Mobility, Education, Functional Activity Jose, Functional Strength, Gait, Safety, Therapeutic Exercise, Transfers Treatment Duration: Sep 22, 2019 Frequency: 6 times per week Estimated Hrs Per Day: .25 hour per day Patient and/or Family Agrees t: Yes Time/GCodes Time In: 1043 Time Out: 1106 Total Billed Treatment Time: 23 Total Billed Treatment 1 visit EX (10') GT (13') CECILLE JEFFERY PT Sep 12, 2019 11:26
[2019-09-12] MEDS ORDERED: METOCLOPRAMIDE 5 MG (REGLAN) TAB PO ONE (11:30)
--- NOTE | 2019-09-12 13:26 | NUR ---
"RD ASSESSMENT PMHx: HTN; CAD; hypercholesterolemia; renal failure PT INTERACTION: Pt was awake and pleasant during nutrition follow-up. Pt states he has been eating pretty poorly since last assessment. Note avg PO intake <25% meals, per chart review. Pt states some issues with nausea, vomiting, and constipation since last assessment. Note last BM was 8, and pt currently on bowel regimen of miralax BID, per chart review. ABNORMAL NUTRITION-RELATED LAB VALUES LOW: Ca 7.2 HIGH: Est. kcal needs: 1675 kcal | 25 kcal/kg Est. Pro needs: 54 g Pro | 0.8 g Pro/kg PES STATEMENT: Inadequate oral intake (NI-2.1) related to loss of appetite | nausea | vomiting | constipation as evidenced by pt interview | avg PO intake <25% meals INTERVENTION: Continue with current diet order of 2000mg Na diet. Continue with current supplementation order of Ensure Enlive with meals TID, for increased kcal intake. Provides 350 kcal and 13 g Pro per serving. Encouraged pt to eat when able. Encouraged pt to drink supplements if he did not feel like eating. Will continue to follow and reassess as pt needs, intake, and status change. MONITOR/EVALUATE: PO Intake; Plan of Care; Hydration Status; Weight Status; Lab Values Celestina Cornejo, MS, RD, LD"
--- NOTE | 2019-09-12 14:55 | Occupational Ther Daily Note ---
OT Current Status-Daily Note Subjective Pt alert, sitting in recliner. Daughter present in room. Pt agrees to therapy. During urination, brief had small amount of blood, reported to nrsg. Mental Status/Objective Patient Orientation: Person, Place, Time, Situation Attachments: IV ADL-Treatment Pt educated on use of sock aide. Sock aide left in room for practice and explained to pt to leave sock aide in room after discharge. Pt required demonstration and education of sock aide, completed with minimal verbal cues. Pt then requested to use toilet. SBA for toilet transfer using 4WW and BSC. SBA using 4WW to manipulate clothing and hygiene. Min A to change briefs over feet, able to hike over hips with SBA. Min A for EOB to supine. After session, pt lying in bed with call light/phone in reach. All needs met in room. Daughter present in room. Therapy Code Descriptions/Definitions Functional [place] Measure: 0=Not Assessed/NA 4=Minimal Assistance 1=Total Assistance 5=Supervision or Setup 2=Maximal Assistance 6=Modified [place] 3=Moderate Assistance 7=Complete IndependenceSCALE: Activities may be completed with or without assistive devices. 2-Vruiivnywq-swzdrms completes the activity by him/herself with no assistance from a helper. 5-Set-up or Clean-up Assistance-helper sets up or cleans up; patient completes activity. [place] assists only prior to or following the activity. 4-Supervision or Touching Assistance-helper provides verbal cues and/or touching/steadying and/or contact guard assistance as patient completes activity. Assistance may be provided throughout the activity or intermittently. 3-Partial/Moderate Assistance-helper does LESS THAN HALF the effort. [place] lifts, holds or supports trunk or limbs, but provides less than half the effort. 2-Substantial/Maximal Assistance-helper does MORE THAN HALF the effort. [place] lifts or holds trunk or limbs and provides more than half the effort. 2-Ebybqsebc-rnsinm does ALL the effort. Patient does none of the effort to complete the activity. Or, the assistance of 2 or more helpers is required for the patient to complete the activity. If activity was not attempted, code reason: 7-Patient Refused. 9-Not Applicable-not attempted and the patient did not perform the activity before the current illness, exacerbation or injury. 10-Not Attempted due to Environmental Limitations-(lack of equipment, weather restraints, etc.). 88-Not Attempted due to Medical Conditions or Safety Concerns. Lower Body Dressing (QC): 3 On/Off Footwear: 3 Toileting Hygiene (QC): 4 Toilet Transfer (QC): 4 OT Chcf Goals Emergency Medicine Physician Goals Time Frame: Sep 21, 2019 Eating (QC): 6 Oral Hygiene (QC): 6 Toileting Hygiene (QC): 6 Shower/Bathe Self (QC): 5 Upper Body Dressing (QC): 6 Lower Body Dressing (QC): 6 On/Off Footwear (QC): 5 Additional Goals: 1-Demonstrate ADL Tasks, 2-Verbalize Understanding, 3- ImproveStrength/Jose 1=Demonstrate adherence to instructed precautions during ADL tasks. 2=Patient will verbalize/demonstrate understanding of assistive devices/mo difications for ADL. 3=Patient will improve strength/tolerance for activity to enable patient to perform ADL's. OT Education/Plan Problem List/Assessment Assessment: Decreased Activ Tolerance, Impaired Funct Balance, Impaired Self- Care Skills, Restricted Funct UE ROM Pt to benefit from skilled OT intervention for ADL training, transfers, strengthening, and home safety education to maximize level of independence and allow safe discharge. Discharge Recommendations Plan/Recommendations: Continue POC Treatment Plan/Plan of Care Patient would benefit from OT for education, treatment and training to promote independence in ADL's, mobility, safety and/or upper extremity function for ADL's. Plan of Care: ADL Retraining, Functional Mobility, UE Funct Exercise/Act Treatment Duration: Sep 21, 2019 Frequency: 5 times per week Estimated Hrs Per Day: .25 hour per day Rehab Potential: Fair Time/GCodes Start Time: 14:23 Stop Time: 14:49 Total Time Billed (hr/min): 26 Billed Treatment Time 1 visit-ADL 2 (26 min) PABLO NORIEGA Sep 12, 2019 14:55
[2019-09-12] MEDS: METOCLOPRAMIDE 5 MG (REGLAN) TAB PO SCH ×2 (16:29→20:32)
[2019-09-12 17:09] VITALS: BP 153/86
[2019-09-12] MEDS: ONDANSETRON 4 MG/2 ML (SDV) Z0FRAN IV PRN (19:29)
[2019-09-12] MEDS: traZODone 50 MG (DESYREL) TAB PO SCH (20:32)
[2019-09-12] MEDS: LATANOPROST 0.005% (XALATAN) OPHTH SOLN 2.5 ML OU SCH (20:33)
[2019-09-12] MEDS: PROMETHAZINE 25 MG (PHENERGAN) TAB PO PRN (21:50)
[2019-09-13] MEDS: NYSTATIN ORAL SUSP 5 ML UDC PO SCH ×3 (01:49→11:33)
[2019-09-13] MEDS: NS IV 1000 ML 1,000 ML IV SCH ×2 (02:11→05:48)
[2019-09-13 04:53] VITALS: BP 160/96
[2019-09-13] MEDS: ENOXAPARIN 40 MG/0.4 ML (LOVENOX) SYR SC SCH (05:48)
[2019-09-13] MEDS: METOCLOPRAMIDE 5 MG (REGLAN) TAB PO SCH ×2 (06:09→11:33)
[2019-09-13] MEDS: polyethylene glycoL POWDER 17 GM (MIRALAX) PACK PO SCH (08:08)
[2019-09-13] MEDS ORDERED: METO5TAB2 PO (08:10)
[2019-09-13] MEDS ORDERED: PANT40TA3 PO (08:10)
--- NOTE | 2019-09-13 08:21 | Discharge Summary ---
Discharge Summary Reconcile Patient Problems Problems Reviewed?: Yes Instructions for Patient [facility] Assessment/Instructions Take medications as prescribed. Drink Ensure or other nutritional supplement 3 times daily with meals. Try to eat more liquid or soft foods. Follow-up with your PCP in about a week. Physician to follow Patient: Vicky Discharge Diet for Home: No Restrictions Hospital Course Date of Admission: Sep 06, 2019 at 15:13 Admission Diagnosis : Severe sepsis due to ESBL UTI Family Physician/Provider: Alek Perry DO Date of Discharge: 09/13/19 Discharge Diagnosis: Severe sepsis due to ESBL UTI Hospital Course: Isiah Duncan is a 71-year-old male who was admitted with severe sepsis due to ESBL UTI. He was the transition to swing bed for ongoing IV antibiotics. He completed a course of IV meropenem. He also had nausea, vomiting, and dysphagia. Enteral surgery was consulted and performed an EGD which revealed a grade 3 hiatal hernia, esophageal stricture, and moderate gastritis. A balloon dilation was performed for the stricture. He was started on a PPI for the gastritis. According to surgery, he is not a surgical candidate for hiatal hernia repair. He was started on Reglan to help with his nausea and vomiting. He is instructed to drink Ensure with meals 3 times daily. He is instructed to eat more soft foods. He should follow-up with his PCP in about a week. Labs and Pending Lab Test: Microbiology 09/08/19 MRSA Screen - Final, Complete MRSA not isolated Home Meds Active Metoclopramide HCl 5 Mg Tablet 5 Mg PO ACHS 30 Days Pantoprazole Sodium 40 Mg Tablet.dr 40 Mg PO DAILY 30 Days Reported Preservision Areds 2 Softgel (Vit C/E/Zn/Coppr/Lutein/Zeaxan) 1 Each Capsule 1 Each PO BID Timolol Maleate 0.5% (Timolol Maleate) 5 Ml Drops 1 Drop OU BID LAST FILLED 04-24-2019 #03/08 DAY SUPPLY Propranolol HCl 20 Mg Tablet 20 Mg PO BID Gabapentin 400 Mg Capsule 400 Mg PO QID PRN Proair Hfa (Albuterol Sulfate) 1 Puff Puff 2 Puff IH Q4H PRN Zolpidem Tartrate 5 Mg Tablet 5 Mg PO HS Multivitamins with Minerals (Multivitamin with Minerals) 1 Each Tablet 1 Each PO DAILY Loratadine 10 Mg Tablet 10 Mg PO DAILY Latanoprost 2.5 Ml Drops 1 Drop OU HS LAST FILLED 04-24-2019 #03/08 DAY SUPPLY Dorzolamide 2% Eye Drop (Dorzolamide HCl/Pf) 10 Ml Drops 1 Drop OU BID Docusate Sodium 100 Mg Capsule 100 Mg PO BID PRN Atorvastatin Calcium 20 Mg Tablet 10 Mg PO HS Aspirin EC (Aspirin) 325 Mg Tablet.dr 325 Mg PO DAILY Albuterol Sulfate 2.5 Mg/0.5 Ml Vial.neb 2.5 Mg INH Q4H Hydrocodone-Acetamin 5-325 mg (Hydrocodone/Acetaminophen) 1 Each Tablet 1 Ea PO Q6H PRN Ondansetron HCl 4 Mg Tablet 4 Mg PO Q6H PRN Oxybutynin Chloride 5 Mg Tablet 5 Mg PO BID Fluconazole 200 Mg Tablet 200 Mg PO DAILY FILLED 08-28-2019 #08/13 DAY SUPPLY Prednisone 20 Mg Tab Mg PO DAILY TAKING TAPER DOSE 40MG DAILY X 5 DAYS THEN 20MG DAILY THEREAFTER Benazepril-Hctz 10-12.5 mg Tab (Benazepril/Hydrochlorothiazide) 1 Each Tablet 1 Ea PO DAILY Amox Tr-K Clv 500-125 mg Tab (Amoxicillin/Potassium Clav) 1 Each Tablet 1 Ea PO BID [facility]-2019 [facility] Allergies: Coded Allergies: sulfamethoxazole (Verified Allergy, Unknown, 05/09/18) trimethoprim (Verified Allergy, Unknown, 05/09/18) Uncoded Allergies: EES-400 (Allergy, Unknown, 05/09/18) Height (Feet): 5 Height (Inches): 11.00 Weight (Pounds): 150 Home Health Need/Face to Face Date of Face to Face: Sep 13, 2019 Clinical Findings: Instability, Muscle weakness, Unsteady gait I have seen Pt vxfm-[id number]: Yes Discharged To: Home Diagnosis/Conditions: Debility, hiatal hernia Problems/Diagnosis/Condition: (1) Debility (2) Hiatal hernia (3) ESBL (extended spectrum beta-lactamase) producing bacteria infection Patient is Homebound due to: Niels fall risk due to instabilty, Muscle weakness Homebound Status Due to the above stated illness, injury or surgical procedure (medical condition or diagnosis) and associated clinical findings, the patient is homebound because of his/her inability to leave home except with aid of a supportive device and/or person AND leaving the home requires a considerable and taxing effort or is medically contraindicated. Pt req the following assistanc: Aid of another person, Walker Home Health Nursing Orders Home Health Services Order: Nursing Services, Ammonium Sulfate Operator-Evaluate & Treat, Physical Therapy-Evaluate & Treat Home Health Infusion Therapy Line Start Date: Sep 07, 2019 Therapy Orders Therapy Orders: OT (must have SN or PT order), Physical Therapy Therapy Specific Orders: Eval assistive deivces, Teach enviro modifications/safety, Gait training, Increase strength/endurance Certify Stmt I certify that this patient is under my care and that I, a nurse practitioner or a physician; a commercial assistant working with me, had a face to face encounter that - meets the physician face to face encounter requirements with this patient as dated. Discharge Physical Exam General: Alert, Oriented X3, Cooperative, No Acute Distress HEENT: Atraumatic, PERRLA, EOMI, Mucous Memb Moist/[place] Lungs: Clear to Auscultation, Normal Air Movement Heart: Regular Rate, Normal S1, Normal S2, No Murmurs Abdomen: Normal Bowel Sounds, Soft, No Tenderness Extremities: No Edema, No Tenderness/Swelling Skin: No Rashes, No Significant Lesion Neuro: Other (Motor weakness) Psych/Mental Status: Mental Status NL, Mood NL ALYSSA RAUSCH MD Sep 13, 2019 08:16
[2019-09-13] MEDS: LACTOBACILLUS ACIDOPHILUS (PROBIOTIC) CAPSULE PO SCH ×2 (09:12→13:00)
[2019-09-13] MEDS: PANTOPRAZOLE 40 MG (PROTONIX) TAB PO SCH (09:12)
--- NOTE | 2019-09-13 11:21 | NUR ---
CM/SS finalized discharge. Plan: Patient will return home with a resumption of home health. Home Health: CM/JAILENE contacted [facility] and spoke with Arsenio to inform them that patient will discharge today and resume care. He verbalized understanding. CM/SS contacted Perla from the [place] office to inform her of patients planned discharge. She verbalized understanding. No further needs.
--- NOTE | 2019-09-13 12:11 | Therapy Team Discharge Summary ---
Therapy Discharge Summary Discharge Recommendations Date of Discharge Occupational Therapy Pt admits to SWB status for IV antibiotics with dx of ESBL UTI. Pt originally declines ADLs upon OT eval, with toilet hygiene completed with TD. Pt and OT work towards higher fx IND through ADL training, UE theraband/ functional activity tolerance, and AE training. Pt d/c's home with HH, with LB dressing and footwear improving to 3, toilet hygiene and transfer to 4. D/c OT at this time. Decreased Activ Tolerance, Impaired Funct Balance, Impaired Self-Care Skills, Restricted Funct UE ROM PT Correction Goals [place] Operator Goals PT Correction Goals Time Frame: Sep 22, 2019 Roll Left to Right (QC): 6 Sit to Lying (QC): 6 Lying-Sitting on Side/Bed(QC): 6 Sit to Stand (QC): 6 Chair/Zcv-zn-Xwokj Xfer(QC): 6 Car Transfer (QC): 6 Does the Patient Walk: Yes Walk 10 feet (QC): 6 Walk 10ft-Uneven Surface(QC): 6 Walk 50ft with 2 Turns (QC): 6 Walk 150 ft (QC): 6 Does the Pt use WC or Scooter?: No Wheel 50 feet with 2 turns (QC: 9 1 Step (curb) (QC): 6 4 Steps (QC): 5 12 Steps (QC): 9 Picking up an Object (QC): 6 OT Correction Goals Correction Goals Time Frame: Sep 21, 2019 Eating (QC): 6 Oral Hygiene (QC): 6 Shower/Bathe Self (QC): 5 Upper Body Dressing (QC): 6 Lower Body Dressing (QC): 6 On/Off Footwear (QC): 5 Toileting Hygiene (QC): 6 Toilet/Commode Transfer (QC): 6 Additional Goals: 1-Demonstrate ADL Tasks, 2-Verbalize Understanding, 3-ImproveStrength/Jose 1=Demonstrate adherence to instructed precautions during ADL tasks. 2=Patient will verbalize/demonstrate understanding of assistive devices/modifications for ADL. 3=Patient will improve strength/tolerance for activity to enable patient to perform ADL's. JIMMY PARSONS OTR Sep 13, 2019 12:11
[2019-09-13 13:05] VITALS: BP 160/96
--- NOTE | 2019-09-13 15:07 | Therapy Team Discharge Summary ---
Therapy Discharge Summary Discharge Recommendations Date of Discharge Sep 13, 2019 at 13:27 Physical Therapy Swingbed patient with ESBL E coli/UTI. Upon evaluation patient performed bed mobility and transfers with SBA, ambulated 275' with a 4-wheeled walker with SBA, min assist to berry picker an object from the floor. Patient has been performing bed mobility and transfer training, balance and endurance training, functional strengthening, gait training, and education. Patient has made little progress and is very close to her baseline according to family. Patient has not met any of her longterm goals. Functional mobility is virtually unchanged since her PT evaluation, still SBA with bed mobility and transfers and ambulating over 200' with a 4-wheeled walker with SBA. Patient has been discharged from this facility and will be discharged from PT at this time. Occupational Therapy Decreased Activ Tolerance, Impaired Funct Balance, Impaired Self-Care Skills, Restricted Funct UE ROM PT Nursing Home Goals Drying And Winding Supervisor Goals PT Drying And Winding Supervisor Goals Time Frame: Sep 22, 2019 Roll Left to Right (QC): 6 Sit to Lying (QC): 6 Lying-Sitting on Side/Bed(QC): 6 Sit to Stand (QC): 6 Chair/Wdx-zp-Bmvra Xfer(QC): 6 Car Transfer (QC): 6 Does the Patient Walk: Yes Walk 10 feet (QC): 6 Walk 10ft-Uneven Surface(QC): 6 Walk 50ft with 2 Turns (QC): 6 Walk 150 ft (QC): 6 Does the Pt use WC or Scooter?: No Wheel 50 feet with 2 turns (QC: 9 1 Step (curb) (QC): 6 4 Steps (QC): 5 12 Steps (QC): 9 Picking up an Object (QC): 6 OT Nursing Home Goals Nursing Home Goals Time Frame: Sep 21, 2019 Eating (QC): 6 Oral Hygiene (QC): 6 Shower/Bathe Self (QC): 5 Upper Body Dressing (QC): 6 Lower Body Dressing (QC): 6 On/Off Footwear (QC): 5 Toileting Hygiene (QC): 6 Toilet/Commode Transfer (QC): 6 Additional Goals: 1-Demonstrate ADL Tasks, 2-Verbalize Understanding, 3- ImproveStrength/Jose 1=Demonstrate adherence to instructed precautions during ADL tasks. 2=Patient will verbalize/demonstrate understanding of assistive devices/modifications for ADL. 3=Patient will improve strength/tolerance for activity to enable patient to perform ADL's. JULIO CÉSAR REGAN PT Sep 13, 2019 15:07
== END 2019-09-13 13:27 | disposition home health service (06) | DRG 690 ==
LOC: 4TH 15:13
PROVIDERS: ADMIT Family Medicine; ATTEND Internal Medicine
PROC: 0DB48ZX Excision of Esophagogastric Junction, Via Natural or Artificial Opening Endoscopic, Diagnostic (ICD-10-PCS; 2019-09-09)
PROC: 0DB78ZX Excision of Stomach, Pylorus, Via Natural or Artificial Opening Endoscopic, Diagnostic (ICD-10-PCS; 2019-09-09)
PROC: 0D738ZZ Dilation of Lower Esophagus, Via Natural or Artificial Opening Endoscopic (ICD-10-PCS; principal; 2019-09-09 09:35)
DX: N39.0 Urinary tract infection, site not specified (principal); Z16.12 Extended spectrum beta lactamase (ESBL) resistance; A49.8 Other bacterial infections of unspecified site; K29.70 Gastritis, unspecified, without bleeding; K44.9 Diaphragmatic hernia without obstruction or gangrene; K22.2 Esophageal obstruction; K21.0 Gastro-esophageal reflux disease with esophagitis; I10 Essential (primary) hypertension; Z66 Do not resuscitate; I25.10 Atherosclerotic heart disease of native coronary artery without angina pectoris; G89.29 Other chronic pain; K59.00 Constipation, unspecified; E78.00 Pure hypercholesterolemia, unspecified; Z87.891 Personal history of nicotine dependence; I25.2 Old myocardial infarction; Z95.1 Presence of aortocoronary bypass graft
CPT/HCPCS: 36415; 74019; 80048; 85027; 87081; 87635

== ENCOUNTER → 2019-10-25 | Outpatient (CLI) | payer MEDICARE ==
[~2019-10-25] MED LIST changes: +ACHD5005 PO; -HYDR-3812 PO; +METO5TAB2 PO; +PANT40TA52 PO
--- NOTE | 2019-10-25 18:13 | Diagnostic Imaging Report ---
EXAMINATION: Chest (PA and lateral). CLINICAL INDICATION: 79-year-old male, malaise and fatigue for one month. COMPARISON: September 04, 2019. FINDINGS: There are median sternotomy wires. Stable overall appearance of the cardiomediastinal silhouette. There is no identified pneumothorax. There is no pleural effusion. There is elevation of the left hemidiaphragm. There are mild streaky opacities in the right medial lung base which appear improved since comparison exam. There is no new focal airspace consolidation. IMPRESSION: 1. Mildly increased streaky opacities in the right medial lung base which may relate to atelectasis and/or infiltrate. 2. No interval focal airspace consolidation. 3. Redemonstrated elevation of the left hemidiaphragm. Dictated by: Dictated on workstation # [id number]
== END ==
LOC: RAD FS 15:41
PROVIDERS: ATTEND Emergency Medicine
DX: R91.8 Other nonspecific abnormal finding of lung field (principal); J98.6 Disorders of diaphragm
CPT/HCPCS: 71046

== ENCOUNTER 2019-12-24 14:48 | Emergency (ER) | payer MEDICARE ==
[2019-12-24] MEDS ORDERED: NS IV 1000 ML 1,000 ML IV STA (14:58)
--- NOTE | 2019-12-24 15:02 | ED General ---
General Chief Complaint: Abdominal/GI Problems Stated Complaint: VOMITING Source of Information: Patient, Family, Old Records, RN/MD, RN Notes Reviewed History of Present Illness Date Seen by Provider: Dec 24, 2019 Time Seen by Provider: 14:50 Initial Comments This patient is a 79-year-old male that presents to the emerge department concern of possible dehydration. Patient has had issues with recurrent urinary tract infection and has been on antibiotics for a couple times for the same. So much so that the patient developed thrush that is currently on nystatin mouthwash to help. Family is concerned the patient continued be dehydrated. He requests evaluation and IV fluids in the emergency department. Family also requested patient be tested for coronavirus because the patient's granddaughter has tested positive. Patient has no respiratory symptoms. Vital signs are stable patient's pulse ox of 100% on room air blood pressure 103/69 heart rate 82. Patient is awake and alert answers questions appropriately. Patient requesting water and is drinking by mouth fluids without difficulty. Timing/Duration: 2-3 Days Severity: Mild Associated Systoms: Denies Symptoms; No Chest Pain, No Cough, No Diaphoresis, No Fever/Chills, No Headaches, No Loss of Appetite, No Malaise, No Nausea/Vomiting, No Rash, No Seizure, No Shortness of Air, No Syncope, No Weakness, No Other Allergies and Home Medications Allergies Coded Allergies: sulfamethoxazole (Verified Allergy, Unknown, 05/09/18) trimethoprim (Verified Allergy, Unknown, 05/09/18) Uncoded Allergies: EES-400 (Allergy, Unknown, 05/09/18) Home Medications Albuterol Sulfate 2.5 Mg/0.5 Ml Vial.neb, 2.5 MG INH Q4H, (Reported) Albuterol Sulfate 1 Puff Puff, 2 PUFF IH Q4H PRN for SHORTNESS OF BREATH, (Reported) Aspirin 325 Mg Tablet.dr, 325 MG PO DAILY, (Reported) Atorvastatin Calcium 20 Mg Tablet, 10 MG PO HS, (Reported) Benazepril/Hydrochlorothiazide 1 Each Tablet, 1 EA PO DAILY, (Reported) Docusate Sodium 100 Mg Capsule, 100 MG PO BID PRN for CONSTIPATION-1ST LINE, (Reported) Dorzolamide HCl/Pf 10 Ml Drops, 1 DROP OU BID, (Reported) Gabapentin 400 Mg Capsule, 400 MG PO QID PRN for NERVE PAIN, (Reported) Hydrocodone/Acetaminophen 1 Each Tablet, 1 EA PO Q6H PRN for PAIN-MODERATE (5- 7), (Reported) Latanoprost 2.5 Ml Drops, 1 DROP OU HS, (Reported) LAST FILLED 04-24-2019 #03/08 DAY SUPPLY Loratadine 10 Mg Tablet, 10 MG PO DAILY, (Reported) Metoclopramide HCl 5 Mg Tablet, 5 MG PO ACHS Prescribed by: ALYSSA RAUSCH on 09/13/19 08 Multivitamin with Minerals 1 Each Tablet, 1 EACH PO DAILY, (Reported) Ondansetron HCl 4 Mg Tablet, 4 MG PO Q6H PRN for NAUSEA/VOMITING-1ST LINE, (Reported) Oxybutynin Chloride 5 Mg Tablet, 5 MG PO BID, (Reported) Pantoprazole Sodium 40 Mg Tablet.dr, 40 MG PO DAILY Prescribed by: ALYSSA RAUSCH on 09/13/19 0810 Propranolol HCl 20 Mg Tablet, 20 MG PO BID, (Reported) Timolol Maleate 5 Ml Drops, 1 DROP OU BID, (Reported) LAST FILLED 04-24-2019 #03/08 DAY SUPPLY Vit C/E/Zn/Coppr/Lutein/Zeaxan 1 Each Capsule, 1 EACH PO BID, (Reported) Zolpidem Tartrate 5 Mg Tablet, 5 MG PO HS, (Reported) Patient Home Medication List Home Medication List Reviewed: Yes Review of Systems Review of Systems Constitutional: No no symptoms reported; see HPI; No chills, No diaphoresis, No dizziness, No fever, No malaise, No weakness, No weight gain, No weight loss, No other EENTM: throat pain; No see HPI, No no symptoms reported, No ear discharge, No hearing loss, No ear pain, No blurred vision, No double vision, No eye pain, No tearing, No vision loss, No dental problems, No hoarseness, No mouth pain, No mouth swelling, No epistaxis, No nose congestion, No nose pain, No throat swelling, No other Respiratory: No no symptoms reported, No see HPI, No cough, No dyspnea on exertion, No hemoptysis, No orthopnea, No phlegm, No short of breath, No stridor, No wheezing, No other Cardiovascular: No no symptoms reported, No see HPI, No chest pain, No edema, No Hx of Intervention, No palpitations, No syncope, No vascular heart diseas, No other Gastrointestinal: No RUQ, No LUQ, No RLQ, No LLQ, No no symptoms reported, No see HPI, No abdominal pain, No constipation, No diarrhea, No dysphagia, No hematemesis, No heartburn, No jaundice, No loss of appetite, No melena, No nausea, No vomiting, No other Genitourinary: No no symptoms reported, No see HPI, No decreased output, No discharge, No dysuria, No frequency, No hematuria, No hesitancy, No incontinence, No nocturia, No pain, No other Musculoskeletal: No no symptoms reported, No see HPI, No back pain, No gout, No joint pain, No joint swelling, No muscle pain, No muscle stiffness, No muscle cramps, No muscle twitching, No muscle weakness, No neck pain, No other Skin: No no symptoms reported, No see HPI, No change in color, No change in hair/nails, No dryness, No hx of skin cancer, No lesions, No lumps, No pruritus, No rash, No other All Other Systems Reviewed Negative Unless Noted: Yes Past Nybzejh-Hfdbma-Grohay Hx Patient Social History Alcohol Use: Denies Use Recreational Drug Use: No Smoking Status: Former Smoker Former Smoker, Quit: Feb 07, 1979 2nd Hand Smoke Exposure: No Recent Foreign Travel: No Contact w/Someone Who Travel: No Recent Hopitalizations: No Physical Abuse: No Sexual Abuse: No Mistreated: No Fear: No Seasonal Allergies Seasonal Allergies: Yes Past Medical History Surgeries: Yes (URINARY STENT, HERNIA REPAIR) CABG Respiratory: Yes Asthma Cardiac: Yes Coronary Artery Disease, High Cholesterol, Hypertension Neurological: Yes Neuropathy Genitourinary: Yes Bladder Infection, Kidney Stones, Renal Failure, Dialysis Gastrointestinal: Yes Abdominal Hernia Musculoskeletal: Yes Arthritis Endocrine: No HEENT: Yes Glaucoma Loss of Vision: Right Cancer: No Psychosocial: No Blood Disorders: No Physical Exam Vital Signs Vital Signs - First Documented 12/24/19 14:59 Temp 37.5 B/P (MAP) 140/82 (101) Pulse Ox 96 Capillary Refill : Height, Weight, BMI Height: 5'11.00" Weight: 150lbs. oz. 68.782418hh; 20.30 BMI Method:Stated General Appearance: No Apparent Distress, WD/WN, Thin HEENT: PERRL/EOMI, TMs Normal, Normal ENT Inspection, Pharynx Normal Respiratory: Chest Non Tender, Lungs Clear, Normal Breath Sounds, No Accessory Muscle Use, No Respiratory Distress Cardiovascular: Regular Rate, Rhythm, No Edema, No Gallop, No JVD, No Murmur, Normal Peripheral Pulses Gastrointestinal: Normal Bowel Sounds, No Organomegaly, No Pulsatile Mass, Non Tender, Soft Back: Normal Inspection, No CVA Tenderness, No Vertebral Tenderness Extremity: Normal Capillary Refill, Normal Inspection, Normal Range of Motion, Non Tender, No Calf Tenderness, No Pedal Edema Skin: Normal Color, Warm/Dry Progress/Results/Core Measures Suspected Sepsis SIRS Temperature: Pulse: Respiratory Rate: Laboratory Tests 12/24/19 15:05: White Blood Count 11.1H Blood Pressure / Mean: Laboratory Tests 12/24/19 15:05: Creatinine 1.09, Platelet Count 204, Total Bilirubin 0.6 Results/Orders Lab Results Laboratory Tests Test 12/24/19 15:05 12/24/19 15:51 Range/Units White Blood Count 11.1 H 4.3-11.0 10^3/uL Red Blood Count 4.83 4.35-5.85 10^6/uL Hemoglobin 13.7 13.3-17.7 G/DL Hematocrit 42 40-54 % Mean Corpuscular Volume 87 80-99 FL Mean Corpuscular Hemoglobin 28 25-34 PG Mean Corpuscular Hemoglobin Concent 33 32-36 G/DL Red Cell Distribution Width 18.8 H 10.0-14.5 % Platelet Count 204 130-400 10^3/uL Mean Platelet Volume 9.4 7.4-10.4 FL Immature Granulocyte % (Auto) 1 % Neutrophils (%) (Auto) 71 42-75 % Lymphocytes (%) (Auto) 15 12-44 % Monocytes (%) (Auto) 13 H 0-12 % Eosinophils (%) (Auto) 0 0-10 % Basophils (%) (Auto) 0 0-10 % Neutrophils # (Auto) 7.9 H 1.8-7.8 X 10^3 Lymphocytes # (Auto) 1.7 1.0-4.0 X 10^3 Monocytes # (Auto) 1.4 H 0.0-1.0 X 10^3 Eosinophils # (Auto) 0.0 0.0-0.3 10^3/uL Basophils # (Auto) 0.0 0.0-0.1 10^3/uL Immature Granulocyte # (Auto) 0.1 0.0-0.1 10^3/uL Sodium Level 142 135-145 MMOL/L Potassium Level 2.8 L 3.6-5.0 MMOL/L Chloride Level 106 98-107 MMOL/L Carbon Dioxide Level 17 L 21-32 MMOL/L Anion Gap 19 H 5-14 MMOL/L Blood Urea Nitrogen 21 H 7-18 MG/DL Creatinine 1.09 0.60-1.30 MG/DL Estimat Glomerular Filtration Rate > 60 BUN/Creatinine Ratio 19 Glucose Level 120 H 70-105 MG/DL Calcium Level 8.5 8.5-10.1 MG/DL Corrected Calcium 9.0 8.5-10.1 MG/DL Total Bilirubin 0.6 0.1-1.0 MG/DL Aspartate Amino Transf (AST/SGOT) 24 5-34 U/L Alanine Aminotransferase (ALT/SGPT) 8 0-55 U/L Alkaline Phosphatase 71 40-136 U/L Total Protein 7.3 6.4-8.2 GM/DL Albumin 3.4 3.2-4.5 GM/DL Urine Color YELLOW Urine Clarity TURBID Urine pH 6.0 5-9 Urine Specific [place] 1.020 1.016-1.022 Urine Protein 2+ H NEGATIVE Urine Glucose (UA) NEGATIVE NEGATIVE Urine Ketones TRACE H NEGATIVE Urine Nitrite NEGATIVE NEGATIVE Urine Bilirubin 2+ H NEGATIVE Urine Urobilinogen 0.2 < = 1.0 MG/DL Urine Leukocyte Esterase 3+ H NEGATIVE Urine RBC (Auto) 3+ H NEGATIVE Urine RBC 50-100 H /HPF Urine WBC TNTC H /HPF Urine Crystals NONE /LPF Urine Bacteria LARGE H /HPF Urine Casts NONE /LPF Urine Mucus NEGATIVE /LPF Urine Other /HPF Urine Culture Indicated YES My Orders Orders - CHEYANNE HUSAIN MD Ed Iv/Invasive Line Start (12/24/19 14:58) Chest 1 View Ap/Pa Only (12/24/19 14:58) Cbc With Automated Diff (12/24/19 14:58) Comprehensive Metabolic Panel (12/24/19 14:58) Urinalysis (12/24/19 14:58) Ns Iv 1000 Ml (Sodium Chloride 0.9%) (12/24/19 14:58) Coronavirus Sars-Cov-2 So 2019 (12/24/19 14:58) Potassium Chloride (Tablet) (K Dur Table (12/24/19 15:45) Urine Culture (12/24/19 15:51) Ceftriaxone For Iv Use (Rocephin For I (12/24/19 16:30) Medications Given in ED Current Medications Medications Dose Ordered Sig/Esha Route Start Time Stop Time Status Last Admin Dose Admin Potassium Chloride 20 meq ONCE ONCE PO 12/24/19 15:45 12/24/19 15:46 DC 12/24/19 15:47 20 MEQ Vital Signs/I&O 12/24/19 14:59 Temp 37.5 B/P (MAP) 140/82 (101) Pulse Ox 96 Capillary Refill : Progress Note : Time: 16:31 Progress Note Patient appears to have recurrent urinary tract infection. Patient is had multiple UTIs here recently. Patient has no specific complaints otherwise. Patient appears to be in good spirits appears to be stable and his chronic conditions. Patient does not remember seen a urologist for these recurrent UTIs. Patient be given Rocephin in the emergency department. The will be placed on doxycycline at discharge. Patient be referred to urology and [facility] For further evaluation and treatment. Patient states understanding Encourage by mouth fluids. Continue all home medications including her potassium. Follow-up with your PCP and urology as instructed. Take all medications as instructed. Departure Impression Primary Impression: Recurrent urinary tract infection Additional Impression: Hypokalemia Disposition: 01 HOME, SELF-CARE Condition: Stable Departure-Patient Inst. Decision time for Depature: 16:33 Referrals: Seda TINOCO MD, RICKY D DO (PCP/Family) Primary Care Physician Patient Instructions: Urinary Tract Infection, Adult (DC) Add. Discharge Instructions: Encourage by mouth fluids. Continue all home medications including her potassium. Follow-up with your PCP and urology as instructed. Take all medications as instructed. All discharge instructions reviewed with patient and/or family. Voiced understanding. Scripts Doxycycline Hyclate (Doxycycline Hyclate) 100 Mg Tablet 100 MG PO BID, #14 TAB 0 Refills Prov: CHEYANNE HUSAIN MD 12/24/19 CHEYANNE HUSAIN MD Dec 24, 2019 15:02
[2019-12-24 15:17] LABS: BASOPHILS % (AUTO) 0 % (0-10); EOSINOPHILS % (AUTO) 0 % (0-10); HEMATOCRIT 42 % (40-54); HEMOGLOBIN 13.7 G/DL (13.3-17.7); LYMPHOCYTES # (AUTO) 1.7 X 10^3 (1.0-4.0); LYMPHOCYTES % (AUTO) 15 % (12-44); MEAN CORPUSCULAR HEMOGLOBIN 28 PG (25-34); MEAN CORPUSCULAR HGB CONC 33 G/DL (32-36); MEAN CORPUSCULAR VOLUME 87 FL (80-99); MEAN PLATELET VOLUME 9.4 FL (7.4-10.4); MONOCYTES # (AUTO) 1.4 X 10^3 (0.0-1.0); MONOCYTES % (AUTO) 13 % (0-12); NEUTROPHILS # (AUTO) 7.9 X 10^3 (1.8-7.8); NEUTROPHILS % (AUTO) 71 % (42-75); PLATELET COUNT 204 10^3/uL (130-400); WHITE BLOOD COUNT 11.1 10^3/uL (4.3-11.0)
--- NOTE | 2019-12-24 15:27 | Diagnostic Imaging Report ---
INDICATION: Cough and shortness of breath. Portable chest at 3:13 p.m. There are postoperative changes from median sternotomy. There is a large hiatal hernia. Heart size and pulmonary vascularity are normal. There is some interstitial prominence in the midportion of the right lung. 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 This is more apparent than on comparison exam dated 10/25/2019. Dictated by: Dictated on workstation # [id number]
[2019-12-24 15:29] LABS: ALANINE AMINOTRANSFERASE 8 U/L (0-55); ALBUMIN 3.4 GM/DL (3.2-4.5); ALKALINE PHOSPHATASE 71 U/L (40-136); BILIRUBIN,TOTAL 0.6 MG/DL (0.1-1.0); BUN/CREATININE RATIO 19; CALCIUM 8.5 MG/DL (8.5-10.1); CARBON DIOXIDE 17 MMOL/L (21-32); CHLORIDE 106 MMOL/L (98-107); CREATININE SERUM 1.09 MG/DL (0.60-1.30); GFR ESTIMATED > 60; GLUCOSE 120 MG/DL (70-105); POTASSIUM 2.8 MMOL/L (3.6-5.0); SODIUM 142 MMOL/L (135-145); TOTAL PROTEIN 7.3 GM/DL (6.4-8.2)
[2019-12-24] MEDS ORDERED: KCL 20 MEQ TAB (K-DUR) PO ONE (15:45)
[2019-12-24 16:15] LABS: BACTERIA,URINE LARGE /HPF; BILIRUBIN,URINE 2+ (NEGATIVE); CLARITY,URINE TURBID; COLOR,URINE YELLOW; GLUCOSE, URINE (UA) NEGATIVE (NEGATIVE); KETONES,URINE TRACE (NEGATIVE); LEUKOCYTE ESTERASE ,URINE 3+ (NEGATIVE); NITRITE,URINE NEGATIVE (NEGATIVE); PROTEIN,URINE 2+ (NEGATIVE); RBC,URINE 50-100 /HPF; WBC,URINE TNTC /HPF
[2019-12-24] MEDS ORDERED: cefTRIAXone FOR IV USE 1,000 MG in WATER (STERILE) FOR INJECTION 10 ML IV ONE (16:30)
[2019-12-24] MEDS ORDERED: DOXY100T2 PO (16:35)
[2019-12-24 16:53] VITALS: BP 123/73
--- NOTE | 2019-12-25 20:28 | NUR ---
Attempted to notify the patient of positive COVID. Left message.
== END 2019-12-24 16:53 | disposition home or self-care (01) ==
LOC: EDUNIT# 14:48 → ER FS 14:50
DX: N39.0 Urinary tract infection, site not specified (principal); E87.6 Hypokalemia; U07.1 COVID-19; J45.909 Unspecified asthma, uncomplicated; I10 Essential (primary) hypertension; E78.00 Pure hypercholesterolemia, unspecified; H40.9 Unspecified glaucoma; Z95.1 Presence of aortocoronary bypass graft; Z87.891 Personal history of nicotine dependence; Z88.2 Allergy status to sulfonamides; Z88.1 Allergy status to other antibiotic agents; Z79.82 Long term (current) use of aspirin
CPT/HCPCS: 36415; 71045; 80053; 81000; 85025; 87077; 87088; 99284; U0002; 87635

== ENCOUNTER 2019-12-27 10:13 | Inpatient (IN) | payer MEDICARE ==
[~2019-12-27] VITALS: Ht 180.3 cm; Wt 61.3 kg
[~2019-12-27 10:13] MED LIST changes: +DOXY100T2 PO
--- NOTE | 2019-12-27 10:46 | ED General ---
General Chief Complaint: Dizziness/Syncope Stated Complaint: CODE BLUE Source of Information: Patient, EMS Exam Limitations: No Limitations History of Present Illness Date Seen by Provider: Dec 27, 2019 Time Seen by Provider: 10:30 Initial Comments 79-year-old male presents with near syncope. EMS was called out to the patient's home due to what was initially called a syncope or nonresponsive episode. Patient however denies any ever lost consciousness. Patient reports that he was sitting on the toilet and when he stood up he got kind of lightheaded and slid down. Upon EMS arrival he was found to have initially a little bit of a low blood pressure in the 80s but this quickly resolved into the systolics of the 110s. Patient was seen here couple days ago and diagnosed with a recurrent urinary tract infection. Patient was also tested positive for COVID that time however had no respiratory or COVID complaints. Patient denies any fevers or chills. At this time he denies chest pain, shortness of breath. EMS reports he was a little bit wheezy when they arrived and gave him a DuoNeb and his oxygen has been in the upper 90s. EMS was also called earlier today after the patient fell out of bed that was only for a lift assist. Allergies and Home Medications Allergies Coded Allergies: sulfamethoxazole (Verified Allergy, Unknown, 05/09/18) trimethoprim (Verified Allergy, Unknown, 05/09/18) Uncoded Allergies: EES-400 (Allergy, Unknown, 05/09/18) Home Medications Albuterol Sulfate 2.5 Mg/0.5 Ml Vial.neb, 2.5 MG INH Q4H, (Reported) Albuterol Sulfate 1 Puff Puff, 2 PUFF IH Q4H PRN for SHORTNESS OF BREATH, (Reported) Aspirin 325 Mg Tablet.dr, 325 MG PO DAILY, (Reported) Atorvastatin Calcium 20 Mg Tablet, 10 MG PO HS, (Reported) Benazepril/Hydrochlorothiazide 1 Each Tablet, 1 EA PO DAILY, (Reported) Docusate Sodium 100 Mg Capsule, 100 MG PO BID PRN for CONSTIPATION-1ST LINE, (Reported) Dorzolamide HCl/Pf 10 Ml Drops, 1 DROP OU BID, (Reported) Doxycycline Hyclate 100 Mg Tablet, 100 MG PO BID Prescribed by: CHEYANNE HUSAIN on 12/24/19 1635 Gabapentin 400 Mg Capsule, 400 MG PO QID PRN for NERVE PAIN, (Reported) Hydrocodone/Acetaminophen 1 Each Tablet, 1 EA PO Q6H PRN for PAIN-MODERATE (5- 7), (Reported) Latanoprost 2.5 Ml Drops, 1 DROP OU HS, (Reported) LAST FILLED 04-24-2019 #03/08 DAY SUPPLY Loratadine 10 Mg Tablet, 10 MG PO DAILY, (Reported) Metoclopramide HCl 5 Mg Tablet, 5 MG PO ACHS Prescribed by: ALYSSA RAUSCH on 09/13/19 0810 Multivitamin with Minerals 1 Each Tablet, 1 EACH PO DAILY, (Reported) Ondansetron HCl 4 Mg Tablet, 4 MG PO Q6H PRN for NAUSEA/VOMITING-1ST LINE, (Reported) Oxybutynin Chloride 5 Mg Tablet, 5 MG PO BID, (Reported) Pantoprazole Sodium 40 Mg Tablet.dr, 40 MG PO DAILY Prescribed by: ALYSSA RAUSCH on 09/13/19 0810 Propranolol HCl 20 Mg Tablet, 20 MG PO BID, (Reported) Timolol Maleate 5 Ml Drops, 1 DROP OU BID, (Reported) LAST FILLED 04-24-2019 #03/08 DAY SUPPLY Vit C/E/Zn/Coppr/Lutein/Zeaxan 1 Each Capsule, 1 EACH PO BID, (Reported) Zolpidem Tartrate 5 Mg Tablet, 5 MG PO HS, (Reported) Patient Home Medication List Home Medication List Reviewed: Yes Review of Systems Review of Systems Constitutional: No chills; dizziness; No fever; weakness Respiratory: No cough, No short of breath; wheezing Cardiovascular: No chest pain, No palpitations; syncope (near syncope) Gastrointestinal: No abdominal pain, No nausea, No vomiting Musculoskeletal: other (chronic leg pain, bilateral) Skin: no symptoms reported Psychiatric/Neurological: No Symptoms Reported Past Piozbkm-Gywqnz-Nwuizs Hx Patient Social History Former Smoker, Quit: Feb 07, 1979 2nd Hand Smoke Exposure: No Recent Hopitalizations: No Seasonal Allergies Seasonal Allergies: Yes Past Medical History Surgeries: Yes (URINARY STENT, HERNIA REPAIR) CABG Respiratory: Yes Asthma Cardiac: Yes Coronary Artery Disease, High Cholesterol, Hypertension Neurological: Yes Neuropathy Genitourinary: Yes Bladder Infection, Kidney Stones, Renal Failure, Dialysis Gastrointestinal: Yes Abdominal Hernia Musculoskeletal: Yes Arthritis Endocrine: No HEENT: Yes Glaucoma Loss of Vision: Right Cancer: No Psychosocial: No Blood Disorders: No Physical Exam Vital Signs Capillary Refill : Height, Weight, BMI Height: 5'11.00" Weight: 150lbs. oz. 68.963460dl; BMI Method:Stated General Appearance: No Apparent Distress, Cachetic, Thin HEENT: PERRL/EOMI, Other (patient's lips are dry but mucous membranes are moist with some old dried blood from a fall earlier today out of bed) Neck: Non Tender, Supple Respiratory: No Accessory Muscle Use, No Respiratory Distress, Decreased Breath Sounds (mild) Cardiovascular: No Edema, Tachycardia Gastrointestinal: Non Tender, Soft Extremity: Normal Capillary Refill, Normal Range of Motion Neurologic/Psychiatric: Alert, Oriented x3, Normal Mood/Affect, parts processor II-XII Norm as Tested Focused Exam Lactate Level 12/27/19 10:40: Lactic Acid Level 10.67*H Lactic Acid Level Laboratory Tests Test 12/27/19 10:40 Lactic Acid Level 10.67 MMOL/L (0.50-2.00) *H Progress/Results/Core Measures Suspected Sepsis SIRS Temperature: Pulse: Respiratory Rate: Laboratory Tests 12/27/19 10:40: White Blood Count 13.0H Blood Pressure / Mean: 12/27/19 10:40: Lactic Acid Level 10.67*H Laboratory Tests 12/27/19 10:40: Creatinine 1.75H, Platelet Count 323, Total Bilirubin 0.7 Results/Orders Lab Results Laboratory Tests Test 12/27/19 10:40 Range/Units White Blood Count 13.0 H 4.3-11.0 10^3/uL Red Blood Count 4.23 L 4.35-5.85 10^6/uL Hemoglobin 12.0 L 13.3-17.7 G/DL Hematocrit 37 L 40-54 % Mean Corpuscular Volume 87 80-99 FL Mean Corpuscular Hemoglobin 28 25-34 PG Mean Corpuscular Hemoglobin Concent 33 32-36 G/DL Red Cell Distribution Width 18.6 H 10.0-14.5 % Platelet Count 323 130-400 10^3/uL Mean Platelet Volume 10.0 7.4-10.4 FL Immature Granulocyte % (Auto) 2 % Neutrophils (%) (Auto) 82 H 42-75 % Lymphocytes (%) (Auto) 7 L 12-44 % Monocytes (%) (Auto) 10 0-12 % Eosinophils (%) (Auto) 0 0-10 % Basophils (%) (Auto) 0 0-10 % Neutrophils # (Auto) 10.6 H 1.8-7.8 X 10^3 Lymphocytes # (Auto) 0.9 L 1.0-4.0 X 10^3 Monocytes # (Auto) 1.3 H 0.0-1.0 X 10^3 Eosinophils # (Auto) 0.0 0.0-0.3 10^3/uL Basophils # (Auto) 0.0 0.0-0.1 10^3/uL Immature Granulocyte # (Auto) 0.2 H 0.0-0.1 10^3/uL Neutrophils % (Manual) 50 % Lymphocytes % (Manual) 6 % Monocytes % (Manual) 10 % Eosinophils % (Manual) 0 % Basophils % (Manual) 0 % Myelocytes % 1 % Band Neutrophils 33 % Poikilocytosis 1+ Crenated Cell SLIGHT Elliptocytes SLIGHT Sodium Level 146 H 135-145 MMOL/L Potassium Level 3.4 L 3.6-5.0 MMOL/L Chloride Level 108 H 98-107 MMOL/L Carbon Dioxide Level 12 L 21-32 MMOL/L Anion Gap 26 H 5-14 MMOL/L Blood Urea Nitrogen 33 H 7-18 MG/DL Creatinine 1.75 H 0.60-1.30 MG/DL Estimat Glomerular Filtration Rate 38 BUN/Creatinine Ratio 19 Glucose Level 87 70-105 MG/DL Lactic Acid Level 10.67 *H 0.50-2.00 MMOL/L Calcium Level 8.1 L 8.5-10.1 MG/DL Corrected Calcium 9.0 8.5-10.1 MG/DL Magnesium Level 2.4 1.6-2.4 MG/DL Total Bilirubin 0.7 0.1-1.0 MG/DL Aspartate Amino Transf (AST/SGOT) 38 H 5-34 U/L Alanine Aminotransferase (ALT/SGPT) 10 0-55 U/L Alkaline Phosphatase 71 40-136 U/L Total Protein 6.2 L 6.4-8.2 GM/DL Albumin 2.9 L 3.2-4.5 GM/DL My Orders Orders - GREEN,JENY L DO Chest 1 View Ap/Pa Only (12/27/19 10:34) Cbc With Automated Diff (12/27/19 10:34) Comprehensive Metabolic Panel (12/27/19 10:34) Lactic Acid Analyzer (12/27/19 10:34) Magnesium (12/27/19 10:34) Accucheck Stat ONCE (12/27/19 10:34) Ekg Tracing (12/27/19 10:34) Orthostatic Vital Signs (Adult (12/27/19 10:34) Manual Differential (12/27/19 10:40) Ns Iv 1000 Ml (Sodium Chloride 0.9%) (12/27/19 11:15) Blood Culture (12/27/19 11:19) Ceftriaxone For Iv Use (Rocephin For I (12/27/19 11:30) Azithromycin Injection (Zithromax Inject (12/27/19 11:30) Ed Iv/Invasive Line Start (12/27/19 11:20) Ns Iv 1000 Ml (Sodium Chloride 0.9%) (12/27/19 11:30) Medications Given in ED Current Medications Medications Dose Ordered Sig/Esha Route Start Time Stop Time Status Last Admin Dose Admin Azithromycin 500 mg/Sodium Chloride 255 ml @ 250 mls/hr ONCE ONCE IV 12/27/19 11:30 12/27/19 12:31 12/27/19 11:47 250 MLS/HR Ceftriaxone Sodium 1000 mg/ Sterile Water 10 ml @ 200 mls/hr ONCE ONCE IV 12/27/19 11:30 12/27/19 11:32 DC 12/27/19 11:47 200 MLS/HR Sodium Chloride 1,837.05 ml @ 1,837.05 mls/hr ONCE ONCE IV 12/27/19 11:30 12/27/19 12:29 12/27/19 11:20 1,837.05 MLS/HR Vital Signs/I&O Capillary Refill : Departure Communication (Admissions) Time/Spoke to Admitting Phy: 11:45 Okay to admit to stepdown Impression Primary Impression: Recurrent urinary tract infection Additional Impressions: Sepsis Qualified Codes: A41.9 - Sepsis, unspecified organism COVID-19 Disposition: 30 STILL A PATIENT Condition: Stable Admissions Decision to Admit Reason: Admit from ER (General) Decision to Admit/Date: Dec 27, 2019 Time/Decision to Admit Time: 11:45 Departure-Patient Inst. Referrals: SILVESTRE HANSEN DO (PCP/Family) Primary Care Physician JENY GREEN DO Dec 27, 2019 10:46
--- NOTE | 2019-12-27 11:00 | Diagnostic Imaging Report ---
INDICATION: Near syncope. Time of exam 10:46 a.m. Correlation is made with prior chest from 12/24/2019. Changes of median sternotomy and CABG are noted. Patchy airspace infiltrates throughout the right lung persist and may be slightly increased. Minimal atelectasis in the left base with left hemidiaphragmatic elevation is noted. No effusion or pneumothorax. IMPRESSION: Slight worsening and right-sided pulmonary infiltrates when compared to the examination from three days earlier. Dictated by: Dictated on workstation # [id number]
[2019-12-27 11:09] LABS: BASOPHILS % (AUTO) 0 % (0-10); EOSINOPHILS % (AUTO) 0 % (0-10); HEMATOCRIT 37 % (40-54); LYMPHOCYTES % (AUTO) 7 % (12-44); MEAN CORPUSCULAR HEMOGLOBIN 28 PG (25-34); MEAN CORPUSCULAR HGB CONC 33 G/DL (32-36); MEAN CORPUSCULAR VOLUME 87 FL (80-99); MONOCYTES % (AUTO) 10 % (0-12); NEUTROPHILS % (AUTO) 82 % (42-75); PLATELET COUNT 323 10^3/uL (130-400)
[2019-12-27 11:10] LABS: LYMPHOCYTES # (AUTO) 0.9 X 10^3 (1.0-4.0); MONOCYTES # (AUTO) 1.3 X 10^3 (0.0-1.0); NEUTROPHILS # (AUTO) 10.6 X 10^3 (1.8-7.8)
[2019-12-27] MEDS ORDERED: NS IV 1000 ML 2,000 ML ONE (11:15)
[2019-12-27 11:17] LABS: POTASSIUM 3.4 MMOL/L (3.6-5.0)
[2019-12-27 11:18] LABS: ALBUMIN 2.9 GM/DL (3.2-4.5); BILIRUBIN,TOTAL 0.7 MG/DL (0.1-1.0); CALCIUM 8.1 MG/DL (8.5-10.1); CREATININE SERUM 1.75 MG/DL (0.60-1.30); MAGNESIUM 2.4 MG/DL (1.6-2.4); TOTAL PROTEIN 6.2 GM/DL (6.4-8.2)
[2019-12-27] MEDS ORDERED: NS IV ONE (11:30)
[2019-12-27] MEDS ORDERED: cefTRIAXone FOR IV USE 1,000 MG in WATER (STERILE) FOR INJECTION 10 ML IV ONE (11:30)
[2019-12-27] MEDS ORDERED: AZITHROMYCIN INJECTION 500 MG in NS (IVPB) 250 ML IV ONE (11:30)
[2019-12-27 11:53] LABS: BAND NEUTROPHILS 33 %; BASOPHILS % (MANUAL) 0 %; CRENATED RBC SLIGHT; ELLIPT/OVALOCYTES SLIGHT; EOSINOPHILS % (MANUAL) 0 %; LYMPHOCYTES % (MANUAL) 6 %; MONOCYTES % (MANUAL) 10 %; MYELOCYTES % 1 %; NEUTROPHILS % (MANUAL) 50 %; POIKILOCYTOSIS 1+
--- NOTE | 2019-12-27 12:10 | NUR ---
Call to Locker Operator Pam to get bed requested. Dr Whalen requests ICU status not Cardiac Stepdown. No current bed available and will await a return call from dry starch supervisor.
--- NOTE | 2019-12-27 12:30 | NUR ---
Report to Nicolasa GREER.
--- NOTE | 2019-12-27 12:30 | NUR ---
Merry Trammell, pt's caregiver, was given full update and will call ICU later for update. Correct verification of phone number to reach her for information or concerns/update.
--- NOTE | 2019-12-27 13:20 | NUR ---
Patient has completed Sepsis Bolus requirement, EMS 1 L is counted in this volume. The NS hanging currently Dr states maintenance rate 100 ml/hr. Pt resting quietly with eyes closed.
[2019-12-27] MEDS ORDERED: NS IV 1000 ML 1,000 ML ONE (15:04)
[2019-12-27] MEDS ORDERED: NS IV 1000 ML 1,000 ML IV SCH ×2 (15:30→17:15)
--- NOTE | 2019-12-27 15:48 | NUR ---
Called Valeri, patient's daughter to update that patient has left for [facility].
[2019-12-27] MEDS ORDERED: CATHETER FLUSH 10 ML SYR IV PRN (17:15)
[2019-12-27 17:56] VITALS: BP 141/77
[2019-12-27] MEDS ORDERED: FLU QUAD HIGH DOSE 240 MCG/0.7 ML 2020-21 (FLUZONE) IM ONE (18:15)
[2019-12-27] MEDS ORDERED: MEROPENEM 1,000 MG in WATER (STERILE) FOR INJECTION 20 ML IV SCH (19:00)
[2019-12-27] MEDS ORDERED: ENOXAPARIN 40 MG/0.4 ML (LOVENOX) SYR SQ SCH (19:00)
[2019-12-27] MEDS ORDERED: ENOXAPARIN 30 MG/0.3 ML (LOVENOX) SYR SC SCH (19:00)
[2019-12-27] MEDS ORDERED: ANTACID SUSP 30 ML UDC (MYLANTA) PO PRN (19:00)
[2019-12-27] MEDS ORDERED: BENZONATATE 100 MG (TESSALON) CAPSULE PO PRN (19:00)
[2019-12-27] MEDS ORDERED: ACETAMINOPHEN 325 MG TABLET PO PRN (19:00)
[2019-12-27] MEDS ORDERED: MELATONIN 3 MG TABLET PO PRN (19:00)
[2019-12-27] MEDS ORDERED: ONDANSETRON 4 MG/2 ML (SDV) Z0FRAN IV PRN (19:00)
[2019-12-27] MEDS ORDERED: MILK OF MAGNESIA 400 MG/5 ML 30 ML UDC PO PRN (19:00)
--- NOTE | 2019-12-27 19:04 | NUR ---
TALKED WITH DAUGHTER ANDREW, UPDATED ON PATIENT STATUS.
[2019-12-27 19:15] VITALS: BP 131/85
[2019-12-27] MEDS ORDERED: MEROPENEM 500 MG/SWFI 10 ML IV PUSH IV SCH ×2 (20:00)
[2019-12-28 01:30] VITALS: BP 60/35
[2019-12-28] MEDS ORDERED: DEXTROSE 50% 50 ML (IMS) SYR ONE ×2 (01:56→01:59)
[2019-12-28] MEDS ORDERED: DEXTROSE 10% IV SOLUTION 1,000 ML IV ONE (02:00)
[2019-12-28] MEDS ORDERED: NS IV 500 ML 500 ML IV SCH (02:45)
[2019-12-28 02:59] LABS: ABG OXYGEN SATURATION 62 % (94-100); ABG PCO2 24 MMHG (35-45); ABG PO2 42 MMHG (79-93); ABG TCO2 11.5 MMOL/L (21.0-31.0)
[2019-12-28 03:00] LABS: ALLENS TEST POSITIVE; INSPIRED O2 100; VENTILATOR NO
[2019-12-28 03:01] LABS: PATIENT TEMP 36.9
[2019-12-28 03:21] LABS: BASOPHILS % (AUTO) 0 % (0-10); EOSINOPHILS % (AUTO) 0 % (0-10); HEMATOCRIT 31 % (40-54); HEMOGLOBIN 9.4 g/dL (13.3-17.7); LYMPHOCYTES # (AUTO) 0.1 10^3/uL (1.0-4.0); LYMPHOCYTES % (AUTO) 3 % (12-44); MEAN CORPUSCULAR HEMOGLOBIN 28 pg (25-34); MEAN CORPUSCULAR HGB CONC 31 g/dL (32-36); MEAN CORPUSCULAR VOLUME 91 fL (80-99); MEAN PLATELET VOLUME 10.3 fL (9.0-12.2); MONOCYTES % (AUTO) 1 % (0-12); NEUTROPHILS # (AUTO) 4.1 10^3/uL (1.8-7.8); NEUTROPHILS % (AUTO) 93 % (42-75); PLATELET COUNT 216 10^3/uL (130-400); WHITE BLOOD COUNT 4.4 10^3/uL (4.3-11.0)
[2019-12-28 03:28] LABS: INR 1.6 (0.8-1.4)
[2019-12-28 03:29] LABS: ALBUMIN 2.1 GM/DL (3.2-4.5)
[2019-12-28 03:30] LABS: CALCIUM 6.5 MG/DL (8.5-10.1)
[2019-12-28 03:32] LABS: TOTAL PROTEIN 4.2 GM/DL (6.4-8.2)
[2019-12-28 03:33] LABS: BILIRUBIN,TOTAL 0.7 MG/DL (0.1-1.0)
[2019-12-28 03:35] LABS: CREATININE SERUM 1.69 MG/DL (0.60-1.30); PHOSPHORUS 2.8 MG/DL (2.3-4.7)
[2019-12-28 03:38] LABS: MAGNESIUM 1.9 MG/DL (1.6-2.4)
[2019-12-28 03:42] LABS: POTASSIUM 2.5 MMOL/L (3.6-5.0)
[2019-12-28 03:50] VITALS: BP 64/48
[2019-12-28] MEDS ORDERED: CEFEPIME INJECTION 1,000 MG in WATER (STERILE) FOR INJECTION 10 ML IV ONE (04:15)
[2019-12-28] MEDS ORDERED: VANCOMYCIN INJECTION 1,000 MG in NS (IVPB) 250 ML IV SCH (04:15)
[2019-12-28] MEDS ORDERED: LACTATED RINGERS 1,000 ML IV SCH ×2 (04:30)
[2019-12-28] MEDS ORDERED: NOREPINEPHRINE 4 MG/250 ML 250 ML IV SCH (04:30)
[2019-12-28] MEDS ORDERED: D5 NS 1000 ML IV SOLUTION 1,000 ML IV SCH (04:30)
[2019-12-28 04:45] LABS: ANISOCYTOSIS MODERATE; BURR CELLS MODERATE; HYPOCHROMASIA SLIGHT; LYMPHOCYTES % (MANUAL) 6 %; MONOCYTES % (MANUAL) 5 %; NEUTROPHILS % (MANUAL) 89 %; NUCLEATED RED BLOOD CELLS 2; POIKILOCYTOSIS MODERATE; POLYCHROMASIA SLIGHT
[2019-12-28] MEDS ORDERED: ATROPINE INJECTION 1 MG/10 ML SYR (ABBOTT) INJ ONE (04:57)
[2019-12-28] MEDS ORDERED: AMIODARONE (BOLUS) 150 MG/3 ML IV ONE (04:57)
[2019-12-28] MEDS ORDERED: EPINEPHrine 0.1 MG/ML 10 ML (HOSPIRA) SYR IJ ONE (04:57)
[2019-12-28] MEDS ORDERED: CATHETER FLUSH 10 ML SYR IV ONE (04:57)
[2019-12-28] MEDS ORDERED: SODIUM BICARB 8.4% 50 MEQ/50 ML (ABBOTT) SYR INJ ONE (04:57)
[2019-12-28] MEDS ORDERED: VANCOMYCIN 1250 MG/NS 250 ML IVPB IV SCH ×2 (05:00)
--- NOTE | 2019-12-28 05:44 | Progress Note ---
Progress Note called by nurse last night with decreased BP and hypoxia- pt moved to ICU where he began to vomit copious amounts of coffee-ground emesis and bleeding rectally and from bladder. Despite prolonged rescuscitative efforts - pt . Called and discussed with Valeri Stearns daughter- [phone]. They request [facility] home in [place]. ELIJAH SAMSON MD Dec 28, 2019 05:44
[2019-12-28] MEDS ORDERED: dexAMETHasone 6 MG TAB (DECADRON) PO SCH (07:00)
[2019-12-28] MEDS ORDERED: MIDAZOLAM 5 MG/5 ML (VERSED) VIAL IJ ONE (07:26)
--- NOTE | 2019-12-28 07:42 | NUR ---
0140- THIS RN ENTERED PT'S ROOM TO ASSESS VS. B/P- 60s/30s, P- 120, O2- 81% ON 2L NC, SHALLOW LABORED RESPIRATIONS NOTED. OXYGEN INCREASED TO 5L AND O2 CAME UP TO 90%. ATTEMPTED TO WAKE PT UP. PT NON-RESPONSIVE. STERNUM RUB ADMINISTERED AND PT DID MOAN SLIGHTLY. THIS RN ACTIVATED CALL LIGHT IN PT'S ROOM AND REQUESTED ASSISTANCE. 0144- DR. SAMSON CALLED AND NOTIFIED OF PT'S DECLINE. ORDERED TO RUN NS WIDE OPEN, GET BLOOD GASES, GET ICU ROOM, AND CONSULT E-ICU. 0145- BAG OF NS HAD APPROXIMATELY 200ML LEFT WHEN ORDERED TO RUN WIDE OPEN. 0150- ICU NURSES AND RT IN PTS ROOM. PT PLACED IN [place] POSITION AND BAGGED AT THIS TIME. 0155- BLOOD GLUCOSE LEVEL OBTAINED AND NOTED TO BE 22 0200- SECOND BAG OF NS HUNG AND RAN WIDE OPEN 0200- 1 AMP D50 ADMINISTERED 0205- BLOOD GLUCOSE 105 0207- 2ND AMP OF D50 ADMINISTERED 0209- PT PLACED ON BIPAP. VS AT THIS TIME: B/P- 71/42, P- 57, 02-100% 0210- CBC, CMP, MAG, PHOSPHORUS, PTT, TYPE AND CROSS ORDERED 0217- NG TUBE PLACED. COFFEE GROUND DRAINAGE OBTAINED 0220- KNIGHT CATHETER INSERTED AND DRAINING BLOODY URINE 0225- LAB IN TO DRAW BLOOD FOR ORDERED LABS 0230- PT PLACED ON HIGH FLOW O2 AT 6L, 02- 88-90% 0300- HIGH FLOW O2 INCREASED TO 10L, O2- 90% 0300- BLOOD GLUCOSE OBTAINED, 123 0300- ANOTHER BAG OF NS HUNG AT THIS TIME AT RATE OF 100ML/HR 0330- VS: B/P- 72/48, P- 117, O2- 90% ON HIGH FLOW O2 AT 10L 0345- PT MOVED TO ICU11
--- NOTE | 2019-12-28 07:45 | NUR ---
339--Received bedside report from Champ RN, pt to room CU11 8--TeleICU contacted, notified of new pt, critical lactic acid and potassium levels called, ABG results read, orders received to intubate 411--Dr Jordan at bedside, PEA noted, compressions initiated 414--Pulse check, rate 63, pt bagged, no compressions resumed 416--2 amps bicarb administered 419--RT intubated, at bedside, 26 @ lip, copious amounts of coffee ground emesis noted in ETT 427--Levo started at 0.1 mg/kg/hr 434--Pt extubated, tube reassessed, pt continuing to be suctioned, and bagged 436--BP 87/48, levo increased to 0.13 438--Pt reintubated per RT, Dr at bedside 439--Asystole, no pulse, compressions resumed-1 mg epi, atropine, and 1 amp bicarb given 441--Rhythm check, no pulse, compressions resumed, 1 mg epi given 443--1 mg epi, atropine given 044--Rhythm check, pt in v-tach, rate 200s, shocked at 200 joules 446--No pulse, 1 mg epi given, atropine given 044--Dr Yu contacted 448--Amio 300 bolus given, pt in v-tach, shocked at 300 joules, 1 mg epi given 0450--Asystole 0451--1 mg epi given 0453--1 mg epi given 0454--Time of called by Dr Jordan 0563--Orient called, pt not a candidate for donation, reference #[id number]--Post-mortem care performed 06--[facility] notified
[2019-12-28] MEDS ORDERED: LACTOBACILLUS ACIDOPHILUS (PROBIOTIC) CAPSULE PO SCH (08:00)
--- NOTE | 2019-12-28 09:28 | NUR ---
CM/SS contacted [facility] to inform them that patient had and to remove off services. They verbalized understanding.
[2019-12-29] MEDS ORDERED: VANCOMYCIN 750 MG/NS 250 ML IVPB IV SCH ×2 (05:00)
[2019-12-29 21:52] LABS: ABG PH 7.27 (7.37-7.43)
--- NOTE | 2020-01-01 09:15 | Discharge Summary ---
Discharge Summary Hospital Course Was the Problem List Reviewed?: Yes Final Diagnosis: Gastrointestinal hemorrage, Covid positive Hospital Course Date of Admission: Dec 27, 2019 at 16:31 Admission Diagnosis : Syncope Family Physician/Provider: Alek Perry DO Date of Discharge: 01/01/20 Discharge Diagnosis: [ Gastrointestinal hemorrhage Possible DIC Cardiac arrest secondary to #1 Covid positive syncope Hospital Course: [ ] Pt was Covid positive and admitted with an episode of syncope. He developed hypotension overnight and was transferred to the ICU and followed by anai. He required pressor support then began vomiting coffee ground emesis and began massive bleeding from the rectum and bladder. He coded. After 45 mins of prolonged CPR the pt continued to refractory to all efforts and the code was called by Dr. Jordan.] Labs and Pending Lab Test: Microbiology 12/27/19 Blood Culture - Preliminary, Resulted No growth Home Meds Active Doxycycline Hyclate 100 Mg Tablet 100 Mg PO BID Metoclopramide HCl 5 Mg Tablet 5 Mg PO ACHS 30 Days Pantoprazole Sodium 40 Mg Tablet.dr 40 Mg PO DAILY 30 Days Reported Preservision Areds 2 Softgel (Vit C/E/Zn/Coppr/Lutein/Zeaxan) 1 Each Capsule 1 Each PO BID Timolol Maleate 0.5% (Timolol Maleate) 5 Ml Drops 1 Drop OU BID LAST FILLED 04-24-2019 #03/08 DAY SUPPLY Propranolol HCl 20 Mg Tablet 20 Mg PO BID Gabapentin 400 Mg Capsule 400 Mg PO QID PRN Proair Hfa (Albuterol Sulfate) 1 Puff Puff 2 Puff IH Q4H PRN Zolpidem Tartrate 5 Mg Tablet 5 Mg PO HS Multivitamins with Minerals (Multivitamin with Minerals) 1 Each Tablet 1 Each PO DAILY Loratadine 10 Mg Tablet 10 Mg PO DAILY Latanoprost 2.5 Ml Drops 1 Drop OU HS LAST FILLED 04-24-2019 #03/08 DAY SUPPLY Dorzolamide 2% Eye Drop (Dorzolamide HCl/Pf) 10 Ml Drops 1 Drop OU BID Docusate Sodium 100 Mg Capsule 100 Mg PO BID PRN Atorvastatin Calcium 20 Mg Tablet 10 Mg PO HS Aspirin EC (Aspirin) 325 Mg Tablet. 325 Mg PO DAILY Albuterol Sulfate 2.5 Mg/0.5 Ml Vial.neb 2.5 Mg INH Q4H Hydrocodone-Acetamin 5-325 mg (Hydrocodone/Acetaminophen) 1 Each Tablet 1 Ea PO Q6H PRN Ondansetron HCl 4 Mg Tablet 4 Mg PO Q6H PRN Oxybutynin Chloride 5 Mg Tablet 5 Mg PO BID Benazepril-Hctz 10-12.5 mg Tab (Benazepril/Hydrochlorothiazide) 1 Each Tablet 1 Ea PO DAILY Assessment/Pt Instructions home Discharge Physical Examination General Appearance: Other () Allergies: Coded Allergies: sulfamethoxazole (Verified Allergy, Unknown, 05/09/18) trimethoprim (Verified Allergy, Unknown, 05/09/18) Uncoded Allergies: EES-400 (Allergy, Unknown, 05/09/18) Copy Copies To 1: ALEK PERRY DO Discharge Summary Date of Admission Dec 27, 2019 at 16:31 Date of Discharge Dec 28, 2019 at 04:58 Comfort Measures/ Cardiopulmonary Arrest: Circulatory Arrest Date of : Dec 28, 2019 Discharge Diagnosis Gastrointestinal Hemorrhage Clinical Quality Measures DVT/VTE Risk/Contraindication: Risk Factor Score Per Nursin RFS Level Per Nursing on Admit: 4+=Very High ELIJAH SAMSON MD Jan 01, 2020 09:11
--- NOTE | 2020-01-02 10:59 | Physician Query Clarification ---
PQ-Uncertain Diagnosis Admission/Discharge Admission Date: Dec 27, 2019 at 16:31 Discharge Date: Dec 28, 2019 at 04:58 Dr. Samson, The medical record reflects the following clinical scenario: History/Risk Factors: Covid, UTI Clinical Findings: T 36.0, P 106, R 24, WBC 13.0, Lactic acid 10.67 Treatment: IV Azithromycin, IV Ceftriaxone Question: Is Sepsis a clinically valid diagnosis? Sepsis was documented in the ER record by Preet Hutchinson with no further documentation in the medical record. Please document a response in Progress Note or Discharge Summary. 1. Yes, clinically valid, condition resolved. 2. No, condition ruled out. 3. Other, with explanation of clinical findings. 4. Undetermined, no explanation for clinical findings. PHYSICIAN RESPONSE Diagnosis clinically valid: Other, explanation/clinical finding Explanation of clincal finding Gastrointestinal hemorrhage Please remember a lack of response to the above will prompt a phone page by [facility]/Coding staff. In responding to this query, please exercise your independent professional judgment. The purpose of this communication is to more accurately reflect the complexity of your patients condition. The fact that a question is asked does not imply that any particular answer is desired or expected. Thank you for your timely response to this clarification. Requestors name: Sharif THIS PHYSICIAN QUERY FORM IS A PERMANENT PART OF THE MEDICAL RECORD SHARIF ORTIZ Jan 02, 2020 10:59 ELIJAH SAMSON MD Jan 08, 2020 12:18
== END 2019-12-28 04:58 | disposition expired | DRG 177 ==
LOC: EDUNIT# 10:13 → ER FS 10:14 → CSD 16:31 → ICU 12-28 03:37
PROVIDERS: ADMIT Family Medicine; ATTEND Family Medicine
PROC: 5A12012 Performance of Cardiac Output, Single, Manual (ICD-10-PCS; principal; 2019-12-28)
PROC: 0BH17EZ Insertion of Endotracheal Airway into Trachea, Via Natural or Artificial Opening (ICD-10-PCS; 2019-12-28)
DX: U07.1 COVID-19 (principal); D65 Disseminated intravascular coagulation [defibrination syndrome]; K92.2 Gastrointestinal hemorrhage, unspecified; N39.0 Urinary tract infection, site not specified; K92.0 Hematemesis; N32.89 Other specified disorders of bladder; I25.10 Atherosclerotic heart disease of native coronary artery without angina pectoris; J45.909 Unspecified asthma, uncomplicated; E78.00 Pure hypercholesterolemia, unspecified; I10 Essential (primary) hypertension; G62.9 Polyneuropathy, unspecified; M19.91 Primary osteoarthritis, unspecified site; Z95.1 Presence of aortocoronary bypass graft; I46.9 Cardiac arrest, cause unspecified
CPT/HCPCS: 36415; 71045; 80053; 82140; 82805; 82962; 83605; 83735; 84100; 85007; 85027; 85610; 85730; 86850; 86900; 86901; 86920; 87040; 93005; 94660; 96365; 96375